=== PATIENT | male | born 1960 | race Caucasian/White ===

== ENCOUNTER 2016-04-01 11:56 | Inpatient (IN) | payer BC, OTHER ==
--- NOTE | 2016-04-01 15:35 | HP ---
CIWA Score - CIWA Score Nausea/Vomitin (DIARRHEA) Muscle Tremors: 4-Moderate,w/Arms Extend Anxiety: 4-Mod. Anxious/Guarded Agitation: 4-Moderately Restless Paroxysmal Sweats: 1-Minimal Palms Moist Orientation: 0-Oriented Tacttile Disturbances: 3-Moderate Itch/Numb/Burn Auditory Disturbances: 0-None Visual Disturbances: 0-None Headache: 1-Very Mild CIWA-Ar Total Score: 22 Admission ROS BHS - HPI Chief Complaint: DETOX TX FOR ALCOHOL AND COCAINE DEPENDENCE Allergies/Adverse Reactions: Allergies Allergy/AdvReac Type Severity Reaction Status Date / Time shellfish derived Allergy Verified 04/01/16 14:44 History of Present Illness: 55 Y/O H/M WITH A HX OF ALCOHOL AND COCAINE DEPENDENCE SEEKING DETOX TX. Exam Limitations: No Limitations - Ebola screening Have you traveled outside of the country in the last 21 days: No Have you had contact with anyone from an Ebola affected area: No Have you been sick,other than usual withdrawal symptoms: No Do you have a fever: No - Review of Systems Constitutional: Chills, Night Sweats, Changes in sleep EENT: reports: Blurred Vision, Dental Problems (LOOSE/CRACKED TOOTH) Respiratory: reports: No Symptoms reported Cardiac: reports: No Symptoms Reported GI: reports: Constipated, Diarrhea, Nausea, Poor Fluid Intake, Vomiting : reports: Frequency Musculoskeletal: reports: Joint Pain (LEFT HAND), Muscle Pain Integumentary: reports: No Symptoms Reported Neuro: reports: Numbness, Tingling, Tremors, Unsteady Gait Endocrine: reports: No Symptoms Reported Hematology: reports: No Symptoms Reported Psychiatric: reports: Orientated x3, Agitated, Anxious Other Systems: Reviewed and Negative Patient History - Patient Medical History Hx Anemia: No Hx Asthma: No Hx Chronic Obstructive Pulmonary Disease (COPD): No Hx Cancer: No Hx Cardiac Disorders: Yes ("REGURGITATING HEART VESSEL" 3 YRS AGO) Hx Congestive Heart Failure: No Hx Hypertension: No Hx Hypercholesterolemia: No Hx Pacemaker: No HX Cerebrovascular Accident: No Hx Seizures: No Hx Dementia: No Hx Diabetes: No Hx Gastrointestinal Disorders: No Hx Liver Disease: No Hx Genitourinary Disorders: No Hx Sexually Transmitted Disorders: Yes (Tx for chlamydia.) Hx Renal Disease (ESRD): No Hx Thyroid Disease: No Hx Human Immunodeficiency Virus (HIV): No Hx Hepatitis C: No Hx Depression: Yes (ON MEDS) Hx Suicide Attempt: Yes (Tried to overdose in 1984;DENIES CURRENT IDEATION) Hx Bipolar Disorder: Yes Hx Schizophrenia: No - Patient Surgical History Past Surgical History: Yes Hx Appendectomy: Yes (AT 13 YRS OLD) Anesthesia Reaction: No - PPD History Previous Implant?: Yes Documented Results: Negative w/o proof Implanted On Prior [facility] Admission?: Yes Date: 11/07/13 PPD to be Administered?: Yes - Reproductive History Patient is a Female of Child Bearing Age (11 -55 yrs old): No (MALE) - Smoking Cessation Smoking history: Current every day smoker Aproximately how many cigarettes per day: 10 Hx Chewing Tobacco Use: No Initiated information on smoking cessation: Yes 'Breaking Loose' booklet given: 04/01/16 - Substance & Tx. History Hx Alcohol Use: Yes (RUM) Hx Substance Use: Yes (COCAINE) Substance Use Type: Alcohol, Cocaine Hx Substance Use Treatment: Yes ([facility]) - Substances Abused Alcohol Route: Oral Frequency: Daily Amount used: 1 pint of rum/3 beers Age of first use: 16 Date of Last Use: 03/31/16 Cocaine Route: Smoking Frequency: Daily Amount used: $30-40 Age of first use: 17 Date of Last Use: 03/31/16 Family Disease History - Family Disease History Family Disease History: Other: Father (ALCOHOL) Admission Physical Exam S - Vital Signs Vital Signs: Vital Signs - 24 hr 04/01/16 12:27 Pulse Rate 80 Respiratory 20 Rate Blood Pressure 114/80 - Physical General Appearance: Yes: Moderate Distress, Anxious HEENTM: Yes: EOMI, Normocephalic, SALAS, Pharynx Normal Respiratory: Yes: Chest Non-Tender, Lungs Clear, Normal Breath Sounds, No Respiratory Distress Neck: Yes: Supple, Trachea in good position Breast: Yes: Breast Exam Deferred Cardiology: Yes: Regular Rhythm, Regular Rate, S1, S2 Abdominal: Yes: Normal Bowel Sounds, Non Tender, Soft Genitourinary: Yes: Other (N/C) Back: Yes: Within Normal Limits Musculoskeletal: Yes: full range of Motion, Gait Steady Extremities: Yes: Normal Range of Motion, Non-Tender Neurological: Yes: assemblyman or woman II-XII NML intact, Fully Oriented, Alert, Motor Strength 5/5 Integumentary: Yes: Dry, Warm Lymphatic: Yes: Within Normal Limits - Diagnostic (1) Alcohol dependence with uncomplicated withdrawal Current Visit: Yes Status: Acute (2) Cocaine dependence, uncomplicated Current Visit: Yes Status: Acute Cleared for Admission [facility] - Detox or Rehab [facility] Level of Care: Medically Managed Detox Regimen/Protocol: Librium [facility] Breath Alcohol Content Breath Alcohol Content: 0 Urine Drug Screen - Results Drug Screen Negative: No Urine Drug Screen Results: BREONNA-Cocaine, MDMA-Ecstasy
[2016-04-01] MEDS ORDERED: P-EPHED 60MG/TRIPROLIDI 2.5MG TABLET PO PRN (15:48)
[2016-04-01] MEDS ORDERED: chlordiazePOXIDE HCL 25 MG CAPSULE PO PRN (15:48)
[2016-04-01] MEDS ORDERED: MENTHOL/PHENOL 1 EACH UD MM PRN (15:48)
[2016-04-01] MEDS ORDERED: guaiFENesin/D-METHORPHAN HB 10 ML UNIT-DOSE CUPS PO PRN (15:48)
[2016-04-01] MEDS ORDERED: IBUPROFEN 400 MG TABLET (FP) PO PRN (15:48)
[2016-04-01] MEDS ORDERED: diphenhydrAMINE HCL 50 MG CAPSULE PO PRN (15:48)
[2016-04-01] MEDS ORDERED: MAG HYDROX/AL HYDROX/SIMETH 30 ML UNIT-DOSE CUP PO PRN (15:48)
[2016-04-01] MEDS ORDERED: MAGNESIUM CITRATE 300 ML BOTTLE PO PRN (15:48)
[2016-04-01] MEDS ORDERED: LOPERAMIDE HCL 2 MG CAPSULE PO PRN (15:48)
[2016-04-01] MEDS ORDERED: MAGNESIUM HYDROX 2400MG/30ML ORAL SUSPENSION 30 ML CUP PO PRN (15:48)
[2016-04-01] MEDS ORDERED: hydrOXYzine PAMOATE 25 MG CAPSULE (FP) PO PRN (15:48)
[2016-04-01] MEDS: chlordiazePOXIDE HCL 25 MG CAPSULE PO SCH ×2 (17:48→22:27)
[2016-04-01] MEDS: NICOTINE 14 MG/24 HOURS TOPICAL PATCH TD SCH (17:52)
[2016-04-01] MEDS: NICOTINE POLACRILEX 2 MG GUM BC PRN ×2 (17:52→23:10)
[2016-04-01 21:22] LABS: HIV 1 & 2 AB NEGATIVE; HIV 1 AGp24 NEGATIVE
[2016-04-01] MEDS: THIAMINE HCL 100 MG TABLET (FP) PO SCH (22:27)
[2016-04-01 23:42] LABS: URINE APPEARANCE SLCLOUDY; URINE BILIRUBIN NEGATIVE (NEGATIVE); URINE COLOR YELLOW; URINE GLUCOSE (UA) NEGATIVE (NEGATIVE); URINE KETONE NEGATIVE (NEGATIVE); URINE LEUK ESTERASE NEGATIVE (NEGATIVE); URINE NITRITE NEGATIVE (NEGATIVE); URINE PROTEIN NEGATIVE (NEGATIVE); URINE UROBILINOGEN NEGATIVE E.U./dl (0.2-1.0)
[2016-04-02 00:05] LABS: URINE BLOOD 2+ (NEGATIVE)
[2016-04-02 00:09] LABS: CALCIUM OXALATE CRYSTALS RARE /hpf (NONE SEEN); URINE MUCUS RARE; URINE RBC 55 /hpf (0-3); URINE WBC 5 /hpf (3-5)
[2016-04-02] MEDS: chlordiazePOXIDE HCL 25 MG CAPSULE PO SCH ×4 (05:24→23:14)
[2016-04-02 10:48] LABS: MCH 31.8 pg (25.7-33.7); MCHC 34.1 g/dl (32.0-35.9); MEAN CELL VOLUME 93.2 fl (80-96); MEAN PLT VOLUME 8.1 fl (7.5-11.1); PLATELET COUNT 241 K/MM3 (134-434); RDW 14.9 % (11.9-15.9); WHITE BLOOD COUNT 6.9 K/mm3 (4.0-10.0)
[2016-04-02] MEDS: PRENATAL VITAMINS W/ FOLIC ACID TABLET (FP) PO SCH (10:50)
[2016-04-02] MEDS: NICOTINE 14 MG/24 HOURS TOPICAL PATCH TD SCH (10:51)
[2016-04-02 10:52] LABS: ALBUMIN 3.4 g/dl (3.4-5.0); ALK PHOS 107 U/L (45-117); ANION GAP 8 (8-16); BILIRUBIN,TOTAL 0.5 mg/dL (0.2-1.0); CALCIUM 9.2 mg/dL (8.5-10.1); CO2 26 mmol/L (21-32); CREATININE 1.1 mg/dL (0.7-1.3); GLUCOSE,RANDOM 153 mg/dL (74-106); SGOT/AST 15 U/L (15-37); SGPT/ALT 23 U/L (12-78); TOT PROT 5.8 g/dl (6.4-8.2)
--- NOTE | 2016-04-02 11:18 | CONSULT ---
[facility] Psychiatric Consult - Data Date of interview: 04/02/16 Admission source: [facility] Identifying data: This is 55 uyears old male with history of Bipolar disorder, history of psychiatric hospitalizations, intoxicated with: Alcohol, Cocaine and Nicotine Substance Abuse History: - Smoking Cessation. Smoking history: Current every day smoker. Aproximately how many cigarettes per day: 10. Hx Chewing Tobacco Use: No. Initiated information on smoking cessation: Yes. 'Breaking Loose' booklet given: 04/01/16. - Substance & Tx. History. Hx Alcohol Use: Yes (RUM) . Hx Substance Use: Yes (COCAINE). Substance Use Type: Alcohol, Cocaine. Hx Substance Use Treatment: Yes ([facility]). - Substances Abused. Alcohol. Route: Oral. Frequency: Daily. Amount used: 1 pint of rum/3 beers. Age of first use: 16. Date of Last Use: 03/31/16. Cocaine. Route: Smoking. Frequency: Daily. Amount used: $30-40. Age of first use: 17. Date of Last Use : 03/31/16 Medical History: Denies significant medical problem Psychiatric History: Patient reports to carry Bipolar disorder with most recent psychiatric hospitalization on 2016 at [facility] for [facility], as per computer there is a history of Suicidal attempts by OD, patient denioes suicidal history, reports taking prior to admission: Depakote 500mg po qhs. Risperdal 3mg po qhs Physical/Sexual Abuse/Trauma History: Denies, unclear Additional Comment: Depakote 500mg po qhs. Risperdal 3mg po qhs Mental Status Exam - Mental Status Exam Alert and Oriented to: Person Cognitive Function: Fair Patient Appearance: Unkempt Mood: Sad Affect: Flat Patient Behavior: Sedated Speech Pattern: Delayed Voice Loudness: Moderately Soft/Quiet Thought Process: Circumstantial Thought Disorder: Being Controlled Hallucinations: Denies Suicidal Ideation: Denies Homicidal Ideation: Denies Insight/Judgement: Fair Sleep: Difficulty falling asleep Appetite: Weight loss Muscle strength/Tone: Moderate Hypotonicity Gait/Station: Shuffling Additional Comments: Depakote 500mg po qhs. Risperdal 3mg po qhs Psychiatric Findings - Problem List ([place] 1, 2,3) (1) Alcohol dependence with uncomplicated withdrawal Current Visit: Yes Status: Acute (2) Cocaine dependence, uncomplicated Current Visit: Yes Status: Acute (3) Bipolar disorder Current Visit: Yes Status: Acute (4) Non compliance w medication regimen Current Visit: Yes Status: Acute (5) Nicotine dependence Current Visit: Yes Status: Acute - Initial Treatment Plan Initial Treatment Plan: Depakote 500mg po qhs. Risperdal 3mg po qhs. Depakote blood level
--- NOTE | 2016-04-02 11:48 | PN ---
S CIWA - CIWA Score Nausea/Vomitin Muscle Tremors: 2 Anxiety: 3 Agitation: 2 Paroxysmal Sweats: 3 Orientation: 1-Uncertain about Date Tacttile Disturbances: 1-Very Mild Itch/Numbness Auditory Disturbances: 0-None Visual Disturbances: 0-None Headache: 0-None Present CIWA-Ar Total Score: 14 BHS Progress Note (SOAP) Subjective: interrupted sleep,sweats, some anxiety Objective: 04/02/16 11:47 Vital Signs Temperature 98.2 F 04/02/16 10:02 Pulse Rate 91 H 04/02/16 10:02 Respiratory Rate 18 04/02/16 10:02 Blood Pressure 109/74 04/02/16 10:02 O2 Sat by Pulse Oximetry (%) Laboratory Tests 04/01/16 04/01/16 04/02/16 15:50 21:23 05:30 WBC 6.9 RBC 4.78 Hgb 15.2 Hct 44.6 MCV 93.2 MCHC 34.1 RDW 14.9 Plt Count 241 MPV 8.1 Sodium Potassium Chloride Carbon Dioxide Anion Gap BUN Creatinine Creat Clearance w eGFR Random Glucose Calcium Total Bilirubin AST ALT Alkaline Phosphatase Total Protein Albumin Urine Color Yellow Urine Appearance Slcloudy Urine pH 5.0 D Ur Specific [place] 1.024 Urine Protein Negative Urine Glucose (UA) Negative Urine Ketones Negative Urine Blood 2+ H Urine Nitrite Negative Urine Bilirubin Negative Urine Urobilinogen Negative Ur Leukocyte Esterase Negative Urine RBC 55 Urine WBC 5 Ur Epithelial Cells Rare Calcium Oxalate Crystal Rare Urine Mucus Rare HIV 1&2 Antibody Screen Negative HIV P24 Antigen Negative 04/02/16 05:30 WBC RBC Hgb Hct MCV MCHC RDW Plt Count MPV Sodium 142 Potassium 3.5 Chloride 108 H Carbon Dioxide 26 Anion Gap 8 BUN 11 Creatinine 1.1 Creat Clearance w eGFR > 60 Random Glucose 153 H D Calcium 9.2 Total Bilirubin 0.5 D AST 15 ALT 23 Alkaline Phosphatase 107 Total Protein 5.8 L Albumin 3.4 Urine Color Urine Appearance Urine pH Ur Specific [place] Urine Protein Urine Glucose (UA) Urine Ketones Urine Blood Urine Nitrite Urine Bilirubin Urine Urobilinogen Ur Leukocyte Esterase Urine RBC Urine WBC Ur Epithelial Cells Calcium Oxalate Crystal Urine Mucus HIV 1&2 Antibody Screen HIV P24 Antigen pt aox3 in nad ambulating Assessment: 04/02/16 11:48 withdrawlsx's Plan: cont. detox increase fluids
--- NOTE | 2016-04-02 11:49 | EKG ---
Test Reason : Blood Pressure : / mmHG Vent. Rate : 074 BPM Atrial Rate : 074 BPM P-R Int : 168 ms QRS Dur : 088 ms QT Int : 418 ms P-R-T Axes : 071 070 062 degrees QTc Int : 463 ms NORMAL SINUS RHYTHM MINIMAL VOLTAGE CRITERIA FOR LVH, MAY BE NORMAL VARIANT BORDERLINE ECG NO PREVIOUS ECGS AVAILABLE Confirmed by HONG العلي MD ([id number]) on 04/02/2016 11:49:34 AM Referred By: Confirmed By:HONG العلي MD
[2016-04-02] MEDS: risperiDONE 3 MG TABLET PO SCH (22:33)
[2016-04-02] MEDS: DIVALPROEX SODIUM 500 MG TABLET E.C. PO SCH (22:33)
[2016-04-02] MEDS: THIAMINE HCL 100 MG TABLET (FP) PO SCH (22:34)
[2016-04-03] MEDS: ACETAMINOPHEN 325 MG TABLET (FP) PO PRN ×2 (02:00→23:12)
[2016-04-03] MEDS: chlordiazePOXIDE HCL 25 MG CAPSULE PO SCH ×2 (05:26→10:54)
[2016-04-03] MEDS ORDERED: TRIMETHOBENZAMIDE HCL 200MG/2ML INJ IM PRN (05:31)
--- NOTE | 2016-04-03 10:40 | PN ---
[facility] CIWA - CIWA Score Nausea/Vomitin-No Nausea/No Vomiting Muscle Tremors: 3 Anxiety: 3 Agitation: 3 Paroxysmal Sweats: 3 Orientation: 0-Oriented Tacttile Disturbances: 0-None Auditory Disturbances: 0-None Visual Disturbances: 0-None Headache: 0-None Present CIWA-Ar Total Score: 12 S Progress Note (SOAP) Subjective: left arm sore I got an injection now my arm hurts sweats irritable interrupted sleep Objective: 04/03/16 10:41 Vital Signs Temperature 97.5 F L 04/03/16 10:01 Pulse Rate 89 04/03/16 10:01 Respiratory Rate 20 04/03/16 10:01 Blood Pressure 106/61 04/03/16 10:01 O2 Sat by Pulse Oximetry (%) Laboratory Tests 04/01/16 04/01/16 04/02/16 15:50 21:23 05:30 WBC 6.9 RBC 4.78 Hgb 15.2 Hct 44.6 MCV 93.2 MCHC 34.1 RDW 14.9 Plt Count 241 MPV 8.1 Sodium Potassium Chloride Carbon Dioxide Anion Gap BUN Creatinine Creat Clearance w eGFR Random Glucose Calcium Total Bilirubin AST ALT Alkaline Phosphatase Total Protein Albumin Urine Color Yellow Urine Appearance Slcloudy Urine pH 5.0 D Ur Specific [place] 1.024 Urine Protein Negative Urine Glucose (UA) Negative Urine Ketones Negative Urine Blood 2+ H Urine Nitrite Negative Urine Bilirubin Negative Urine Urobilinogen Negative Ur Leukocyte Esterase Negative Urine RBC 55 Urine WBC 5 Ur Epithelial Cells Rare Calcium Oxalate Crystal Rare Urine Mucus Rare Valproic Acid RPR Titer HIV 1&2 Antibody Screen Negative HIV P24 Antigen Negative 04/02/16 04/02/16 04/03/16 05:30 05:30 05:45 WBC RBC Hgb Hct MCV MCHC RDW Plt Count MPV Sodium 142 Potassium 3.5 Chloride 108 H Carbon Dioxide 26 Anion Gap 8 BUN 11 Creatinine 1.1 Creat Clearance w eGFR > 60 Random Glucose 153 H D Calcium 9.2 Total Bilirubin 0.5 D AST 15 ALT 23 Alkaline Phosphatase 107 Total Protein 5.8 L Albumin 3.4 Urine Color Urine Appearance Urine pH Ur Specific [place] Urine Protein Urine Glucose (UA) Urine Ketones Urine Blood Urine Nitrite Urine Bilirubin Urine Urobilinogen Ur Leukocyte Esterase Urine RBC Urine WBC Ur Epithelial Cells Calcium Oxalate Crystal Urine Mucus Valproic Acid < 3.000 L RPR Titer Nonreactive HIV 1&2 Antibody Screen HIV P24 Antigen awake/alert lying in bed no acute distress Assessment: 04/03/16 10:42 withdrawal sx Plan: continue detox increase fluids motrin prn warm compress to arm
[2016-04-03] MEDS ORDERED: IBUPROFEN 600 MG TABLET (FP) PO PRN (10:43)
[2016-04-03] MEDS: PRENATAL VITAMINS W/ FOLIC ACID TABLET (FP) PO SCH (10:52)
[2016-04-03] MEDS: NICOTINE 14 MG/24 HOURS TOPICAL PATCH TD SCH (10:52)
[2016-04-03] MEDS: chlordiazePOXIDE 5 MG CAPSULE PO SCH ×2 (18:16→23:34)
[2016-04-03] MEDS: risperiDONE 3 MG TABLET PO SCH (22:55)
[2016-04-03] MEDS: THIAMINE HCL 100 MG TABLET (FP) PO SCH (22:55)
[2016-04-03] MEDS: DIVALPROEX SODIUM 500 MG TABLET E.C. PO SCH (22:55)
--- NOTE | 2016-04-03 23:38 | PN ---
S Progress Note Note: received nurse call temp 100.8 recommend tylenal 650 mg x 1 now repeat temp in 2 hours around 130 am continue detox
[2016-04-04] MEDS: chlordiazePOXIDE 5 MG CAPSULE PO SCH ×2 (05:35→10:52)
--- NOTE | 2016-04-04 10:43 | PN ---
BHS Progress Note (SOAP) Subjective: tired Objective: 04/04/16 10:43 Vital Signs Temperature 97.6 F 04/04/16 10:00 Pulse Rate 96 H 04/04/16 10:00 Respiratory Rate 20 04/04/16 10:00 Blood Pressure 108/77 04/04/16 10:00 O2 Sat by Pulse Oximetry (%) awake/alert ambulating no acute distress Assessment: 04/04/16 10:43 withdrawal sx Plan: continue detox d/c in am
[2016-04-04] MEDS: PRENATAL VITAMINS W/ FOLIC ACID TABLET (FP) PO SCH (10:52)
[2016-04-04] MEDS: NICOTINE 14 MG/24 HOURS TOPICAL PATCH TD SCH (10:53)
[2016-04-04] MEDS: chlordiazePOXIDE HCL 10 MG CAPSULE PO SCH ×2 (18:34→22:51)
[2016-04-04] MEDS: ACETAMINOPHEN 325 MG TABLET (FP) PO PRN (18:34)
[2016-04-04] MEDS: DIVALPROEX SODIUM 500 MG TABLET E.C. PO SCH (22:50)
[2016-04-04] MEDS: THIAMINE HCL 100 MG TABLET (FP) PO SCH (22:51)
[2016-04-04] MEDS: risperiDONE 3 MG TABLET PO SCH (22:51)
[2016-04-05] MEDS: chlordiazePOXIDE HCL 10 MG CAPSULE PO SCH ×2 (05:10→13:29)
--- NOTE | 2016-04-05 09:24 | PN ---
S Progress Note (SOAP) Subjective: no complaints Objective: 04/05/16 09:23 Laboratory Tests 04/01/16 04/01/16 04/02/16 15:50 21:23 05:30 WBC 6.9 RBC 4.78 Hgb 15.2 Hct 44.6 MCV 93.2 MCHC 34.1 RDW 14.9 Plt Count 241 MPV 8.1 Sodium Potassium Chloride Carbon Dioxide Anion Gap BUN Creatinine Creat Clearance w eGFR Random Glucose Calcium Total Bilirubin AST ALT Alkaline Phosphatase Total Protein Albumin Urine Color Yellow Urine Appearance Slcloudy Urine pH 5.0 D Ur Specific [place] 1.024 Urine Protein Negative Urine Glucose (UA) Negative Urine Ketones Negative Urine Blood 2+ H Urine Nitrite Negative Urine Bilirubin Negative Urine Urobilinogen Negative Ur Leukocyte Esterase Negative Urine RBC 55 Urine WBC 5 Ur Epithelial Cells Rare Calcium Oxalate Crystal Rare Urine Mucus Rare Valproic Acid RPR Titer HIV 1&2 Antibody Screen Negative HIV P24 Antigen Negative 04/02/16 04/02/16 04/03/16 05:30 05:30 05:45 WBC RBC Hgb Hct MCV MCHC RDW Plt Count MPV Sodium 142 Potassium 3.5 Chloride 108 H Carbon Dioxide 26 Anion Gap 8 BUN 11 Creatinine 1.1 Creat Clearance w eGFR > 60 Random Glucose 153 H D Calcium 9.2 Total Bilirubin 0.5 D AST 15 ALT 23 Alkaline Phosphatase 107 Total Protein 5.8 L Albumin 3.4 Urine Color Urine Appearance Urine pH Ur Specific [place] Urine Protein Urine Glucose (UA) Urine Ketones Urine Blood Urine Nitrite Urine Bilirubin Urine Urobilinogen Ur Leukocyte Esterase Urine RBC Urine WBC Ur Epithelial Cells Calcium Oxalate Crystal Urine Mucus Valproic Acid < 3.000 L RPR Titer Nonreactive HIV 1&2 Antibody Screen HIV P24 Antigen Assessment: 04/05/16 09:23 elevated glucose, hematuria, compoelted detox, medically stable Plan: d/c today, going to rehab, f/u PCP for abnormal blood and urine results
--- NOTE | 2016-04-05 09:26 | DS ---
[facility] Detox Discharge Summary Admission Date: 04/01/16 Discharge Date: 04/05/16 - History Present History: Alcohol Dependence, Cocaine Dependence Pertinent Past History: nicotine dependence, bipolar do - Physical Exam Results Vital Signs: Vital Signs Temperature 97.9 F 04/05/16 06:22 Pulse Rate 65 04/05/16 06:22 Respiratory Rate 16 04/05/16 06:22 Blood Pressure 107/77 04/05/16 06:22 O2 Sat by Pulse Oximetry (%) Pertinent Admission Physical Exam Findings: withdrawal sx - Treatment Hospital Course: Detox Protocol Followed, Detoxed Safely, Responded well, Discharged Condition Good, Rehab Referral Accepted - Medication Discharge Medications: Ambulatory Orders Divalproex [Depakote -] 500 mg PO HS #30 tablet.ec 04/02/16 Risperidone [Risperdal -] 3 mg PO HS #30 tablet 04/02/16 - Diagnosis (1) Alcohol dependence with uncomplicated withdrawal Current Visit: Yes Status: Acute (2) Bipolar disorder Current Visit: Yes Status: Acute (3) Cocaine dependence, uncomplicated Current Visit: Yes Status: Acute (4) Nicotine dependence Current Visit: Yes Status: Acute - AMA Did Patient Leave Against Medical Advice: No
[2016-04-05] MEDS: PRENATAL VITAMINS W/ FOLIC ACID TABLET (FP) PO SCH (10:45)
[2016-04-05] MEDS: NICOTINE POLACRILEX 2 MG GUM BC PRN (10:46)
[2016-04-05] MEDS: NICOTINE 14 MG/24 HOURS TOPICAL PATCH TD SCH (10:46)
--- NOTE | 2016-04-05 13:18 | HP ---
Psychiatrist Admission - Data Date of interview: 04/05/16 Admission source: 6N Identifying data: This is the first [facility] admission for this 55 years old single male, father of an 8 years old son, unemployed with no source of income, homeless Medical History: Significant for history of treatment for Syphilis and Chlamydia and S/P Appendectomy Psychiatric History: Reports that his first psychiatric contact was between the age of [age] when he was admitted to [facility] due to suicidal attempt by overdose. He was diagnosed then with Bipolar Disorder and treated with Depakote, Risperdal and Seroquel. Reports to have had multiple subsequent admissions with most recent in Dec 2015 to [facility] for depression and suicidal ideations. He was discharged on Depakote 500 mg po HS, Risperdal 3 mg po HS and Seroquel 800 mg po HS. Claims that he has not been taking these medications. He saw Dr Quiñones in detox and was restarted on Depakote 500 mg po HS and Risperdal 3 mg po HS. At present, he wants to resume taking Seroquel at a low dose in addition to continue taking Depakote and Risperdal as prescribed. Physical/Sexual Abuse/Trauma History: Denies history of physical, sexua abuse as well as DV relationship Additional Comment: Reports history of multiple arrsts including 5 felony convictions. Denies being on parole/probation at this time Vital Signs: Vital Signs - 24 hr 04/04/16 04/04/16 04/04/16 14:50 17:43 21:52 Temperature 99.9 F H 97.9 F 97.1 F L Pulse Rate 98 H 89 78 Respiratory 16 18 20 Rate Blood Pressure 93/65 105/77 95/72 04/05/16 04/05/16 04/05/16 00:30 03:30 06:22 Temperature 97.9 F Pulse Rate 65 Respiratory 16 18 16 Rate Blood Pressure 107/77 04/05/16 09:59 Temperature 97.7 F Pulse Rate 82 Respiratory 20 Rate Blood Pressure 103/73 Allergies/Adverse Reactions: Allergies Allergy/AdvReac Type Severity Reaction Status Date / Time No Known Drug Allergies Allergy Verified 04/01/16 16:05 shellfish derived Allergy Verified 04/01/16 14:44 Date of last physical exam: 04/01/16 Concur with the findings of this exam: Yes - Substance Abuse/Tx History Hx Alcohol Use: Yes Hx Substance Use: Yes Substance Use Type: Alcohol (Started drinking alcohol at age 16, consumes one pint of rum & 3 cans of beer daily. Last drink on 03/31/16), Cocaine (Started smoking crack cocaine at age 17, consumes $30-40 worth daily. Last smoked on ) Hx Substance Use Treatment: Yes (one previous inpt detox & one inpt rehab @ [facility] ) - Admission Criteria Previous failed treatment: No Poor recovery environment: Yes Comorbidities: Yes Lacks judgement: Yes Mental Status Exam - Mental Status Exam Alert and Oriented to: Time, Place, Person Cognitive Function: Fair Patient Appearance: Well Groomed Mood: Hopeful, Euthymic Affect: Appropriate Patient Behavior: Cooperative (with underlying irritability) Speech Pattern: Clear Voice Loudness: Normal Thought Process: Intact Thought Disorder: Not Present Hallucinations: Denies Suicidal Ideation: Denies Homicidal Ideation: Denies Insight/Judgement: Fair Sleep: Poorly Appetite: Good Muscle strength/Tone: Normal Gait/Station: Normal Psychiatric Findings - Problem List ([place] 1, 2,3) (1) Alcohol dependence with uncomplicated withdrawal Current Visit: Yes Status: Acute (2) Cocaine dependence, uncomplicated Current Visit: Yes Status: Acute (3) Nicotine dependence Current Visit: Yes Status: Acute (4) Bipolar disorder Current Visit: Yes Status: Acute - Initial Treatment Plan Initial Treatment Plan: 1) Continue Depakote 500 mg po HS and Risperdal 3 mg po HS. 2) Start Seroquel 100 mg po HS. 3) Valproic Acid serum level. 4) Monitor progress
[2016-04-05 14:33] VITALS: BMI 23.3
[2016-04-05] MEDS ORDERED: NICOTINE POLACRILEX 2 MG GUM BUC PRN (20:01)
[2016-04-05] MEDS: risperiDONE 3 MG TABLET PO SCH (21:57)
[2016-04-05] MEDS: THIAMINE HCL 100 MG TABLET (FP) PO SCH (21:57)
[2016-04-05] MEDS: DIVALPROEX SODIUM 500 MG TABLET E.C. PO SCH (21:57)
[2016-04-05] MEDS ORDERED: QUEtiapine FUMARATE 100 MG TABLET (FP) PO SCH (22:00)
[2016-04-06 06:43] VITALS: BP 104/75; PULSE 73; TEMP 97.5
--- NOTE | 2016-04-06 07:29 | PN ---
[facility] Progress Note Note: MD'S NOTE: INFORMED AT 7:00AM THAT THE PT. WANTS TO SIGN OUT AMA THE PT. WAS TALKED TO FACE TO FACE AND ATTEMPTED SEVERAL TIMES TO STAY. INSPITE OF IT, HE WANTS TO SIGN OUT AMA. SO, HE SIGNED OUT AND ABOUT TO LEAVE THE FACILITY SOON. RECOMMENDED: TO F/U WITH PMD AND OUT PT. PROGRAMS. PROVIDER: BEATRICE KRUGER MD
== END 2016-04-06 07:15 | disposition left against medical advice (07) | DRG 770 ==
LOC: YASAS 11:56 → Y6N 15:56 → UNDOADMIN 15:56 → UNDODISIN 04-05 12:12 → Y3W 04-05 12:25 → Y6N 04-05 12:25 → UNDODISIN 04-06 07:15
PROVIDERS: ADMIT Internal Medicine Addiction Medicine; ATTEND Psychiatry & Neurology Psychiatry
PROC: HZ2ZZZZ Detoxification Services for Substance Abuse Treatment (ICD-10-PCS; principal; 2016-04-01)
PROC: HZ42ZZZ Group Counseling for Substance Abuse Treatment, Cognitive-Behavioral (ICD-10-PCS; 2016-04-05)
DX: F10.230 Alcohol dependence with withdrawal, uncomplicated (principal); F14.20 Cocaine dependence, uncomplicated; F17.210 Nicotine dependence, cigarettes, uncomplicated; F31.9 Bipolar disorder, unspecified; R31.9 Hematuria, unspecified; R73.9 Hyperglycemia, unspecified; R50.9 Fever, unspecified; Z87.438 Personal history of other diseases of male genital organs; Z91.14 Patient's other noncompliance with medication regimen; Z91.5 Personal history of self-harm
CPT/HCPCS: 36415; 80053; 80164; 81003; 81015; 85027; 86593; 87389; 93005; 93010

== ENCOUNTER 2017-08-04 19:29 | Inpatient (IN) | payer OTHER ==
[2017-08-04 20:13] VITALS: BMI 23.1
--- NOTE | 2017-08-04 20:41 | HP ---
CIWA Score - CIWA Score Nausea/Vomitin-Mild Nausea/No Vomiting Muscle Tremors: 3 Anxiety: 4-Mod. Anxious/Guarded Agitation: 4-Moderately Restless Paroxysmal Sweats: 3 Orientation: 1-Uncertain about Date Tacttile Disturbances: 2-Mild Itch/Numbness/Burn Auditory Disturbances: 0-None Visual Disturbances: 0-None Headache: 0-None Present CIWA-Ar Total Score: 18 Admission ROS [facility]HS - HPI Chief Complaint: REQUESTING DETOX FOR ALCOHOLISM AND WITHDRAWAL SX'S Allergies/Adverse Reactions: Allergies Allergy/AdvReac Type Severity Reaction Status Date / Time No Known Drug Allergies Allergy Verified 04/01/16 16:05 shellfish derived Allergy Verified 04/01/16 14:44 History of Present Illness: 57 Y.O. MALE WITH LONG HX/O ALCOHOLISMA ND COCAINE DEPENDENCE HERE FOR DETOX. 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 HE IS KNOWN TO THIS PROGRAM. LAST HERE /2016 FOR REHAB WHICH HE DID NOT COMPLETE. REPORTS LONGEST CLEAN TIME 15 YEARS. RELAPSING 2 YEARS AGO. PRESENTLY DENIES SI/HI AND A/V HALLUCINATIONS PMHX: LUPUS, HEART MURMUR, NICOTINE DEPENDENCE PSYCH: BIPOLAR., SCHIZOAFFECTIVE AND DEPRESSION Exam Limitations: No Limitations - Ebola screening Have you traveled outside of the country in the last 21 days: No (NN) Have you had contact with anyone from an Ebola affected area: No Have you been sick,other than usual withdrawal symptoms: No Do you have a fever: No - Review of Systems Constitutional: Chills, Loss of Appetite, Night Sweats, Changes in sleep, Unintentional Wgt. Loss EENT: reports: Dental Problems Respiratory: reports: No Symptoms reported Cardiac: reports: No Symptoms Reported GI: reports: Nausea, Poor Appetite, Poor Fluid Intake : reports: No Symptoms Reported Musculoskeletal: reports: No Symptoms Reported Integumentary: reports: No Symptoms Reported Neuro: reports: No Symptoms reported Endocrine: reports: No Symptoms Reported Hematology: reports: No Symptoms Reported Psychiatric: reports: Depressed Other Systems: Reviewed and Negative Patient History - Patient Medical History Hx Anemia: No Hx Asthma: No Hx Chronic Obstructive Pulmonary Disease (COPD): No Hx Cancer: No Hx Cardiac Disorders: Yes ("REGURGITATING HEART VESSEL" 3 YRS AGO) Hx Congestive Heart Failure: No Hx Hypertension: No Hx Hypercholesterolemia: No Hx Pacemaker: No HX Cerebrovascular Accident: No Hx Seizures: No Hx Dementia: No Hx Diabetes: No Hx Gastrointestinal Disorders: No Hx Liver Disease: No Hx Genitourinary Disorders: No Hx Sexually Transmitted Disorders: Yes (Tx for chlamydia.) Hx Renal Disease (ESRD): No Hx Thyroid Disease: No Hx Human Immunodeficiency Virus (HIV): No Hx Hepatitis C: No Hx Depression: Yes (ON MEDS) Hx Suicide Attempt: Yes (Tried to overdose in 1984;DENIES CURRENT IDEATION) Hx Bipolar Disorder: Yes Hx Schizophrenia: No Other Medical History: SHCIZOAFFECTIVE - Patient Surgical History Past Surgical History: Yes Hx Appendectomy: Yes (AT 13 YRS OLD) Anesthesia Reaction: No - PPD History Previous Implant?: Yes Documented Results: Negative w/proof Implanted On Prior [facility] Admission?: Yes Date: 04/03/16 Results: 0MM PPD to be Administered?: Yes - Smoking Cessation Smoking history: Current every day smoker Aproximately how many cigarettes per day: 10 Cigars Per Day: 0 Hx Chewing Tobacco Use: No Initiated information on smoking cessation: Yes 'Breaking Loose' booklet given: 08/04/17 - Substance & Tx. History Hx Alcohol Use: Yes Hx Substance Use: Yes Substance Use Type: Alcohol, Cocaine Hx Substance Use Treatment: Yes ([facility]) - Substances Abused VODKA/BEER Route: Oral Frequency: Daily Amount used: 1/2 PINT VODKA/ 2/ 16 OZ BEER Age of first use: 17 Date of Last Use: 08/04/17 COCAINE Route: Smoking Frequency: Daily Amount used: $50 Age of first use: 27 Date of Last Use: 08/03/17 Family Disease History - Family Disease History Family Disease History: Other: Father (ALCOHOL) Admission Physical Exam [facility] - Vital Signs Vital Signs: Vital Signs - 24 hr 08/04/17 20:11 Temperature 98.7 F Pulse Rate 73 Respiratory 18 Rate Blood Pressure 131/78 - Physical General Appearance: Yes: Appropriately Dressed, Alcohol on Breath, Tremorous ( FELT), Anxious HEENTM: Yes: EOMI, Normocephalic, Normal Voice, SALAS, Pharynx Normal, Nasal Congestion, Other (MISSING TEETH) Respiratory: Yes: Chest Non-Tender, Lungs Clear, Normal Breath Sounds, No Respiratory Distress, No Accessory Muscle Use Neck: Yes: No masses,lesions,Nodules, Supple, Trachea in good position Breast: Yes: Breast Exam Deferred Cardiology: Yes: Regular Rhythm, Regular Rate, S1, S2 Abdominal: Yes: Normal Bowel Sounds, Non Tender, Flat, Soft Genitourinary: Yes: Within Normal Limits Back: Yes: Normal Inspection Musculoskeletal: Yes: full range of Motion, Gait Steady Extremities: Yes: Normal Capillary Refill, Normal Range of Motion, Non-Tender, Tremors Neurological: Yes: Alert, Motor Strength 5/5 Integumentary: Yes: Normal Color, Dry, Warm Lymphatic: Yes: Within Normal Limits - Diagnostic (1) Heart murmur Current Visit: Yes Status: Acute (2) Alcohol dependence with uncomplicated withdrawal Current Visit: Yes Status: Chronic (3) Bipolar disorder Current Visit: Yes Status: Suspected (4) Cocaine dependence, uncomplicated Current Visit: Yes Status: Chronic (5) Nicotine dependence Current Visit: Yes Status: Chronic Qualifiers: Nicotine product type: cigarettes Substance use status: uncomplicated Qualified Code(s): F17.210 - Nicotine dependence, cigarettes, uncomplicated (6) Lupus (systemic lupus erythematosus) Current Visit: Yes Status: Suspected Cleared for Admission [facility] - Detox or Rehab [facility] Level of Care: Medically Managed Detox Regimen/Protocol: Librium Claeared for Rehab Admission: No [facility] Breath Alcohol Content Breath Alcohol Content: 0.024 Urine Drug Screen - Results Drug Screen Negative: No Urine Drug Screen Results: BREONNA-Cocaine
[2017-08-04] MEDS ORDERED: IBUPROFEN 400 MG TABLET (FP) PO PRN (20:50)
[2017-08-04] MEDS ORDERED: LOPERAMIDE HCL 2 MG CAPSULE PO PRN (20:50)
[2017-08-04] MEDS ORDERED: ACETAMINOPHEN 325 MG TABLET (FP) PO PRN (20:50)
[2017-08-04] MEDS ORDERED: MAG HYDROX/AL HYDROX/SIMETH 30 ML UNIT-DOSE CUP PO PRN (20:50)
[2017-08-04] MEDS ORDERED: MENTHOL/PHENOL 1 EACH UD MM PRN (20:50)
[2017-08-04] MEDS ORDERED: P-EPHED 60MG/TRIPROLIDI 2.5MG TABLET PO PRN (20:50)
[2017-08-04] MEDS ORDERED: guaiFENesin/D-METHORPHAN HB 10 ML UNIT-DOSE CUPS PO PRN (20:50)
[2017-08-04] MEDS ORDERED: chlordiazePOXIDE HCL 25 MG CAPSULE PO PRN (20:50)
[2017-08-04] MEDS ORDERED: MAGNESIUM HYDROX 2400MG/30ML ORAL SUSPENSION 30 ML CUP PO PRN (20:50)
[2017-08-04] MEDS ORDERED: hydrOXYzine PAMOATE 50 MG CAPSULE (FP) PO PRN (20:50)
[2017-08-04] MEDS ORDERED: MAGNESIUM CITRATE 300 ML BOTTLE PO PRN (20:50)
[2017-08-04] MEDS ORDERED: MELATONIN 5 MG TABLETS PO PRN (22:00)
[2017-08-04] MEDS: chlordiazePOXIDE HCL 25 MG CAPSULE PO SCH (22:48)
[2017-08-04] MEDS: THIAMINE HCL 100 MG TABLET (FP) PO SCH (22:51)
[2017-08-04] MEDS: NICOTINE POLACRILEX 2 MG GUM BC PRN (23:35)
[2017-08-05] MEDS: chlordiazePOXIDE HCL 25 MG CAPSULE PO SCH ×4 (06:43→23:03)
--- NOTE | 2017-08-05 10:04 | PN ---
BHS CIWA - CIWA Score Nausea/Vomitin Muscle Tremors: 3 Anxiety: 3 Agitation: 2 Paroxysmal Sweats: 1-Minimal Palms Moist Orientation: 0-Oriented Tacttile Disturbances: 1-Very Mild Itch/Numbness Auditory Disturbances: 1-Very Mild Visual Disturbances: 0-None Headache: 2-Mild CIWA-Ar Total Score: 16 BHS Progress Note (SOAP) Subjective: ALERT,IRRITABLE,ANXIOUS,INTERRUPTED SLEEP,TREMOR Objective: 08/05/17 10:01 Vital Signs Temperature 98.1 F 08/05/17 09:08 Pulse Rate 67 08/05/17 09:08 Respiratory Rate 16 08/05/17 09:08 Blood Pressure 119/78 08/05/17 09:08 O2 Sat by Pulse Oximetry (%) EKG NSR,NORMAL ECG,PROLONG QT 430/447 NO CHEST PAIN,NO SOB,NO DIZZINESS LABS PENDING Assessment: 08/05/17 10:03 WITHDRAWAL SYMPTOM Plan: CONTINUE DETOX
--- NOTE | 2017-08-05 10:22 | CONSULT ---
[facility] Psychiatric Consult - Data Date of interview: 08/05/17 Admission source: [facility] Identifying data: This is 57 years old male, sigle, father of one, living with roommate, on PA, with history of Bipolar disorder, history of Psychiatric hospitalizations, with long history of Alcohol, Cocaine and Nicotine dependence , reports withdrawal symptoms and seeking for detox. Substance Abuse History: Smoking Cessation. Smoking history: Current every day smoker. Aproximately how many cigarettes per day: 10. Cigars Per Day: 0. Hx Chewing Tobacco Use: No. Initiated information on smoking cessation: Yes. ' Breaking Loose' booklet given: 08/04/17. - Substance & Tx. History. Hx Alcohol Use: Yes. Hx Substance Use: Yes. Substance Use Type: Alcohol, Cocaine. Hx Substance Use Treatment: Yes ([facility] - Substances Abused. VODKA/BEER. Route: Oral. Frequency: Daily. Amount used: 1/2 PINT VODKA/ 2/ 16 OZ BEER. Age of first use: 17. Date of Last Use: 08/04/17. COCAINE. Route: Smoking. Frequency: Daily. Amount used: $50. Age of first use: 27. Date of Last Use: 08/03/17 Medical History: SLE, Heart murmur history Psychiatric History: Patient reports history of Bipolar Disorder with most recent psychiatric admission on 2 months ago at [facility]. Reports taking prior to admission: Zyprexa 10mg poqd, as per computer patient has been on: Risperdal 3mg po qhs. Depakote 50mg po qhs. Zyprexa 10mg po qd. Patient refusing to continue Risperdal and Depakote. Physical/Sexual Abuse/Trauma History: Denies Additional Comment: Zyprexa 10mg poqd Mental Status Exam - Mental Status Exam Alert and Oriented to: Person Cognitive Function: Fair Patient Appearance: Unkempt Mood: Sad Affect: Flat Patient Behavior: Sedated Speech Pattern: Delayed Voice Loudness: Mildly Soft/Quiet Thought Process: Goal Oriented Thought Disorder: Being Controlled Hallucinations: Denies Suicidal Ideation: Denies Homicidal Ideation: Denies Insight/Judgement: Fair Sleep: Difficulty falling asleep Appetite: Fair Muscle strength/Tone: Mild Hypotonicity Gait/Station: Shuffling Additional Comments: Zyprexa 10mg poqd Psychiatric Findings - Problem List ([place] 1, 2,3) (1) Drug-induced mood disorder Current Visit: Yes Status: Acute (2) Alcohol dependence with uncomplicated withdrawal Current Visit: Yes Status: Chronic (3) Cocaine dependence, uncomplicated Current Visit: Yes Status: Chronic (4) Nicotine dependence Current Visit: Yes Status: Chronic Qualifiers: Nicotine product type: cigarettes Substance use status: uncomplicated Qualified Code(s): F17.210 - Nicotine dependence, cigarettes, uncomplicated (5) Bipolar disorder Current Visit: Yes Status: Suspected - Initial Treatment Plan Initial Treatment Plan: Zyprexa 10mg poqd
[2017-08-05 10:23] LABS: HEMATOCRIT 43.8 % (35.4-49); HEMOGLOBIN 14.6 GM/dL (11.7-16.9); MCH 32.2 pg (25.7-33.7); MCHC 33.4 g/dl (32.0-35.9); MEAN CELL VOLUME 96.3 fl (80-96); MEAN PLT VOLUME 8.1 fl (7.5-11.1); PLATELET COUNT 257 K/MM3 (134-434); RBC 4.55 M/mm3 (4.00-5.60); RDW 14.3 % (11.9-15.9); WHITE BLOOD COUNT 6.2 K/mm3 (4.0-10.0)
[2017-08-05 11:09] LABS: CHLORIDE 111 mmol/L (98-107); POTASSIUM 4.2 mmol/L (3.5-5.1); SODIUM 145 mmol/L (136-145)
[2017-08-05 11:19] LABS: ALK PHOS 82 U/L (45-117); ANION GAP 7 (8-16); BILIRUBIN,TOTAL 0.5 mg/dL (0.2-1.0); BLOOD UREA NITROGEN 14 mg/dL (7-18); CALCIUM 8.2 mg/dL (8.5-10.1); CO2 27 mmol/L (21-32); CREATININE 1.2 mg/dL (0.7-1.3); GLUCOSE,RANDOM 86 mg/dL (74-106); SGOT/AST 12 U/L (15-37); SGPT/ALT 20 U/L (12-78); TOT PROT 5.4 g/dl (6.4-8.2)
[2017-08-05] MEDS: PRENATAL VITAMINS W/ FOLIC ACID TABLET (FP) PO SCH (11:22)
[2017-08-05] MEDS: NICOTINE 14 MG/24 HOURS TOPICAL PATCH TD SCH (11:22)
[2017-08-05] MEDS: OLANZapine 10 MG TABLET PO SCH (11:22)
[2017-08-05] MEDS: NICOTINE POLACRILEX 2 MG GUM BC PRN (11:27)
--- NOTE | 2017-08-05 14:29 | EKG ---
Test Reason : Blood Pressure : / mmHG Vent. Rate : 065 BPM Atrial Rate : 065 BPM P-R Int : 174 ms QRS Dur : 092 ms QT Int : 430 ms P-R-T Axes : 083 072 066 degrees QTc Int : 447 ms NORMAL SINUS RHYTHM NORMAL ECG WHEN COMPARED WITH ECG OF 01-APR-2016 17:46, NO SIGNIFICANT CHANGE WAS FOUND Confirmed by HONG العلي MD ([id number]) on 08/05/2017 2:29:23 PM Referred By: Confirmed By:HONG العلي MD
[2017-08-05 20:42] LABS: URINE APPEARANCE CLEAR; URINE BILIRUBIN NEGATIVE (<2.0 mg/dL); URINE COLOR STRAW; URINE GLUCOSE (UA) NEGATIVE (NEGATIVE); URINE KETONE NEGATIVE (NEGATIVE); URINE LEUK ESTERASE NEGATIVE (NEGATIVE); URINE NITRITE NEGATIVE (NEGATIVE); URINE PROTEIN NEGATIVE (NEGATIVE); URINE UROBILINOGEN NEGATIVE mg/dL (0.2-1.0)
[2017-08-05] MEDS: THIAMINE HCL 100 MG TABLET (FP) PO SCH (23:03)
[2017-08-06] MEDS: chlordiazePOXIDE HCL 25 MG CAPSULE PO SCH ×3 (06:10→17:55)
--- NOTE | 2017-08-06 09:46 | PN ---
S CIWA - CIWA Score Nausea/Vomitin Muscle Tremors: 3 Anxiety: 2 Agitation: 2 Paroxysmal Sweats: 1-Minimal Palms Moist Orientation: 0-Oriented Tacttile Disturbances: 1-Very Mild Itch/Numbness Auditory Disturbances: 1-Very Mild Visual Disturbances: 0-None Headache: 2-Mild CIWA-Ar Total Score: 15 BHS Progress Note (SOAP) Subjective: ALERT,IRRITABLE,ANXIOUS,INTERRUPTED SLEEP,TREMOR Objective: 08/06/17 09:44 Vital Signs Temperature 95.0 F L 08/06/17 09:11 Pulse Rate 77 08/06/17 09:11 Respiratory Rate 18 08/06/17 09:11 Blood Pressure 114/64 08/06/17 09:11 O2 Sat by Pulse Oximetry (%) 08/06/17 09:44 Laboratory Last Values WBC 6.2 K/mm3 (4.0-10.0) 08/05/17 07:00 RBC 4.55 M/mm3 (4.00-5.60) 08/05/17 07:00 Hgb 14.6 GM/dL (11.7-16.9) 08/05/17 07:00 Hct 43.8 % (35.4-49) 08/05/17 07:00 MCV 96.3 fl (80-96) H 08/05/17 07:00 MCH 32.2 pg (25.7-33.7) 08/05/17 07:00 MCHC 33.4 g/dl (32.0-35.9) 08/05/17 07:00 RDW 14.3 % (11.9-15.9) 08/05/17 07:00 Plt Count 257 K/MM3 (134-434) 08/05/17 07:00 MPV 8.1 fl (7.5-11.1) 08/05/17 07:00 Sodium 145 mmol/L (136-145) 08/05/17 07:00 Potassium 4.2 mmol/L (3.5-5.1) 08/05/17 07:00 Chloride 111 mmol/L (98-107) H 08/05/17 07:00 Carbon Dioxide 27 mmol/L (21-32) 08/05/17 07:00 Anion Gap 7 (8-16) L 08/05/17 07:00 BUN 14 mg/dL (7-18) D 08/05/17 07:00 Creatinine 1.2 mg/dL (0.7-1.3) 08/05/17 07:00 Creat Clearance w eGFR > 60 (>60) 08/05/17 07:00 Random Glucose 86 mg/dL (74-106) D 08/05/17 07:00 Calcium 8.2 mg/dL (8.5-10.1) L 08/05/17 07:00 Total Bilirubin 0.5 mg/dL (0.2-1.0) 08/05/17 07:00 AST 12 U/L (15-37) L 08/05/17 07:00 ALT 20 U/L (12-78) 08/05/17 07:00 Alkaline Phosphatase 82 U/L (45-117) D 08/05/17 07:00 Total Protein 5.4 g/dl (6.4-8.2) L 08/05/17 07:00 Albumin 3.0 g/dl (3.4-5.0) L 08/05/17 07:00 Urine Color Straw 08/04/17 16:00 Urine Appearance Clear 08/04/17 16:00 Urine pH 6.0 (5.0-8.0) 08/04/17 16:00 Ur Specific [place] 1.008 (1.001-1.035) 08/04/17 16:00 Urine Protein Negative (NEGATIVE) 08/04/17 16:00 Urine Glucose (UA) Negative (NEGATIVE) 08/04/17 16:00 Urine Ketones Negative (NEGATIVE) 08/04/17 16:00 Urine Blood Negative (NEGATIVE) 08/04/17 16:00 Urine Nitrite Negative (NEGATIVE) 08/04/17 16:00 Urine Bilirubin Negative (<2.0 mg/dL) 08/04/17 16:00 Urine Urobilinogen Negative mg/dL (0.2-1.0) 08/04/17 16:00 Ur Leukocyte Esterase Negative (NEGATIVE) 08/04/17 16:00 RPR Titer Nonreactive (NONREACTIVE) 08/05/17 07:00 HIV 1&2 Antibody Screen Negative 08/05/17 07:00 HIV P24 Antigen Negative 08/05/17 07:00 Assessment: 08/06/17 09:45 WITHDRAWAL SYMPTOM Plan: CONTINUE DETOX
[2017-08-06] MEDS: PRENATAL VITAMINS W/ FOLIC ACID TABLET (FP) PO SCH (12:07)
[2017-08-06] MEDS: OLANZapine 10 MG TABLET PO SCH (12:08)
[2017-08-06] MEDS: NICOTINE 14 MG/24 HOURS TOPICAL PATCH TD SCH (12:30)
[2017-08-06] MEDS: chlordiazePOXIDE 5 MG CAPSULE PO SCH (22:10)
[2017-08-06] MEDS: THIAMINE HCL 100 MG TABLET (FP) PO SCH (22:10)
[2017-08-07 06:17] VITALS: TEMP 97.9
[2017-08-07] MEDS: chlordiazePOXIDE 5 MG CAPSULE PO SCH ×3 (06:38→17:13)
[2017-08-07] MEDS ORDERED: cloNIDine HCL 0.1 MG TABLET PO ONE (06:53)
--- NOTE | 2017-08-07 06:57 | PN ---
S Progress Note Note: Patient's blood pressure is B/P 141/99. Patient is asymptomatic Vital Signs Temperature 97.9 F 08/07/17 06:00 Pulse Rate 70 08/07/17 06:00 Respiratory Rate 18 08/07/17 06:00 Blood Pressure 141/99 08/07/17 06:00 O2 Sat by Pulse Oximetry (%) Action:Clonidine 0.1mg tablet oral given
--- NOTE | 2017-08-07 09:04 | PN ---
S Progress Note (SOAP) Subjective: ALERT,IRRITABLE,ANXIOUS,INTERRUPTED SLEEP Objective: 08/07/17 09:00 Vital Signs Temperature 97.9 F 08/07/17 06:00 Pulse Rate 70 08/07/17 06:00 Respiratory Rate 18 08/07/17 06:00 Blood Pressure 141/99 08/07/17 06:00 O2 Sat by Pulse Oximetry (%) Assessment: 08/07/17 09:33 WITHDRAWAL SYMPTOM Plan: CONTINUE DETOX,DISCHARGE IN AM
--- NOTE | 2017-08-07 11:56 | PN ---
S Progress Note Note: PATIENT IS STABLE FOR DISCHARGE TODAY,FOLLOW UP WITH [facility]
--- NOTE | 2017-08-07 11:59 | DS ---
[facility] Detox Discharge Summary Admission Date: 08/04/17 Discharge Date: 08/07/17 - History Present History: Alcohol Dependence, Cocaine Dependence Additional Comments: FOLLOW UP WITH [facility] Pertinent Past History: NICOTINE DEPENDENCE SLE BIPOLAR DISORDER - Physical Exam Results Vital Signs: Vital Signs Temperature 97.9 F 08/07/17 09:54 Pulse Rate 75 08/07/17 09:54 Respiratory Rate 14 08/07/17 09:54 Blood Pressure 132/75 08/07/17 09:54 O2 Sat by Pulse Oximetry (%) Pertinent Admission Physical Exam Findings: WITHDRAWAL SIGNS AND SYMPTOM - Treatment Hospital Course: Detox Protocol Followed, Detoxed Safely, Responded well, Discharged Condition Good, Rehab Referral Accepted Patient has Accepted a Rehab Referral to: [facility] - Medication Discharge Medications: Ambulatory Orders Divalproex [Depakote -] 500 mg PO HS #30 tablet.ec 04/02/16 Risperidone [Risperdal -] 3 mg PO HS #30 tablet 04/02/16 Olanzapine [ZyPREXA -] 10 mg PO DAILY #30 tablet 08/05/17 - Diagnosis (1) Alcohol dependence with uncomplicated withdrawal Current Visit: Yes Status: Chronic (2) Cocaine dependence, uncomplicated Current Visit: Yes Status: Chronic (3) Nicotine dependence Current Visit: Yes Status: Chronic Qualifiers: Nicotine product type: cigarettes Substance use status: uncomplicated Qualified Code(s): F17.210 - Nicotine dependence, cigarettes, uncomplicated (4) Bipolar disorder Current Visit: Yes Status: Suspected (5) Lupus (systemic lupus erythematosus) Current Visit: Yes Status: Suspected - AMA Did Patient Leave Against Medical Advice: No
[2017-08-07] MEDS: NICOTINE 14 MG/24 HOURS TOPICAL PATCH TD SCH (12:27)
[2017-08-07] MEDS: PRENATAL VITAMINS W/ FOLIC ACID TABLET (FP) PO SCH (12:28)
[2017-08-07] MEDS: OLANZapine 10 MG TABLET PO SCH (12:28)
[2017-08-07 14:10] VITALS: BP 145/76; PULSE 62
[2017-08-07] MEDS: NICOTINE POLACRILEX 2 MG GUM BC PRN (17:16)
[2017-08-07] MEDS ORDERED: chlordiazePOXIDE HCL 10 MG CAPSULE PO SCH (23:00)
== END 2017-08-07 17:40 | disposition home or self-care (01) | DRG 774 ==
LOC: YASAS 19:29 → Y6N 20:59
PROVIDERS: ADMIT Surgery; ATTEND Surgery
PROC: HZ2ZZZZ Detoxification Services for Substance Abuse Treatment (ICD-10-PCS; principal; 2017-08-04)
DX: F10.230 Alcohol dependence with withdrawal, uncomplicated (principal); F14.20 Cocaine dependence, uncomplicated; F17.213 Nicotine dependence, cigarettes, with withdrawal; F25.9 Schizoaffective disorder, unspecified; F31.9 Bipolar disorder, unspecified; F19.24 Other psychoactive substance dependence with psychoactive substance-induced mood disorder; M32.9 Systemic lupus erythematosus, unspecified; R01.1 Cardiac murmur, unspecified; Z86.19 Personal history of other infectious and parasitic diseases; Z91.5 Personal history of self-harm; Z59.0 Homelessness
CPT/HCPCS: 36415; 80053; 81003; 85027; 86593; 87389; 93005; 93010; J0735

== ENCOUNTER 2017-08-11 11:23 | Inpatient (IN) | payer OTHER ==
[2017-08-11 11:50] VITALS: BMI 24.1
--- NOTE | 2017-08-11 13:59 | HP ---
[facility] Rehab Assess/Revision - Admission History Admitted to Rehab from: [facility] [address] [place] Date of Admission to Rehab: 08/11/17 - Vital signs Vital Signs: Vital Signs Period Temp Pulse Resp BP Sys/Oates Pulse Ox Last 24 Hr 98.2 F 80 20 114/75 - Findings Detox History & Physical reviewed: Yes Concur with findings: Yes Comments/Additional Findings: 57 YEARS OLD MALE COMPLETED DETOX 08/11/17 RETURN TO [facility] FOR REHAB ADMISSION PER PROTOCOL Inpatient Rehab Admission - Rehab Admission Criteria Previous failed treatment: Yes Poor recovery environment: Yes Comorbidities: Yes Lacks judgement: No Patient is meeting Inpatient Rehab admission criteria:: Yes
[2017-08-11] MEDS ORDERED: MAGNESIUM CITRATE 300 ML BOTTLE PO PRN (14:00)
[2017-08-11] MEDS ORDERED: ACETAMINOPHEN 325 MG TABLET (FP) PO PRN (14:00)
[2017-08-11] MEDS ORDERED: MAG HYDROX/AL HYDROX/SIMETH 30 ML UNIT-DOSE CUP PO PRN (14:00)
[2017-08-11] MEDS ORDERED: MENTHOL/PHENOL 1 EACH UD MM PRN (14:00)
[2017-08-11] MEDS ORDERED: MAGNESIUM HYDROX 2400MG/30ML ORAL SUSPENSION 30 ML CUP PO PRN (14:00)
[2017-08-11] MEDS ORDERED: IBUPROFEN 400 MG TABLET (FP) PO PRN (14:00)
[2017-08-11] MEDS ORDERED: guaiFENesin/D-METHORPHAN HB 10 ML UNIT-DOSE CUPS PO PRN (14:00)
[2017-08-11] MEDS ORDERED: LOPERAMIDE HCL 2 MG CAPSULE PO PRN (14:00)
[2017-08-11] MEDS ORDERED: P-EPHED 60MG/TRIPROLIDI 2.5MG TABLET PO PRN (14:00)
[2017-08-11] MEDS ORDERED: NICOTINE 21 MG/24 HOURS TOPICAL PATCH TD PRN (15:00)
[2017-08-11] MEDS: NICOTINE POLACRILEX 4 MG GUM BUC PRN (17:49)
[2017-08-11] MEDS: THIAMINE HCL 100 MG TABLET (FP) PO SCH (22:00)
[2017-08-12] MEDS: PRENATAL VITAMINS W/ FOLIC ACID TABLET (FP) PO SCH (10:56)
--- NOTE | 2017-08-12 12:22 | HP ---
Psychiatrist Admission - Data Date of interview: 08/12/17 Admission source: [facility] Identifying data: Patient is a 57 year old male, father of one, and currently living with a roomate. This is one of multiple admissions to rehab at [facility]. Pt. admitted to [facility] for alcohol and cocaine dependence. 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 Patient reports h/ o four psychiatric hospitalizations, most recently two months ago at [facility] for depression. Outpatient care is provided at [facility] ( [facility]). Patient reports being prescribed risperdal (unknown dose), seroquel 400mg qhs, depakote 500mg BID, and zyprexa 10mg. Pt. only willing to accept zyprexa 10mg. Pt. reports a diagnosis of bipolar disorder + schizoaffective disorder + antisocial behavior disorder. Patient seen by Dr. Ferris while in detox and was prescribed zyprexa 10mg. Pt. reports one suicide attempt via overdose approximately 25 years ago. Patient currently denies suicidal and homicidal ideation. Physical/Sexual Abuse/Trauma History: Denies. Vital Signs: Vital Signs - 24 hr 08/11/17 08/12/17 08/12/17 15:44 00:30 03:30 Temperature 98 F Pulse Rate 79 Respiratory 18 18 18 Rate Blood Pressure 114/69 08/12/17 07:04 Temperature 97.8 F Pulse Rate 77 Respiratory 18 Rate Blood Pressure 131/77 Allergies/Adverse Reactions: Allergies Allergy/AdvReac Type Severity Reaction Status Date / Time No Known Drug Allergies Allergy Verified 08/11/17 12:34 shellfish derived Allergy Verified 08/11/17 12:34 Date of last physical exam: 08/04/17 Concur with the findings of this exam: Yes - Substance Abuse/Tx History Hx Alcohol Use: Yes ( 1/2 pint of vodka and 2-16 oz beer daily) Hx Substance Use: Yes (Cocaine- $50 daily. ) Substance Use Type: Cocaine Hx Substance Use Treatment: Yes Mental Status Exam - Mental Status Exam Alert and Oriented to: Time, Place, Person Cognitive Function: Good Patient Appearance: Well Groomed Mood: Irritable Affect: Mood Congruent Patient Behavior: Guarded Speech Pattern: Appropriate Voice Loudness: Normal Thought Process: Intact, Goal Oriented Thought Disorder: Not Present Hallucinations: Denies Suicidal Ideation: Denies Homicidal Ideation: Denies Insight/Judgement: Poor Sleep: Fair Appetite: Fair Muscle strength/Tone: Normal Gait/Station: Normal Psychiatric Findings - Problem List ([place] 1, 2,3) (1) Alcohol dependence Current Visit: Yes Status: Acute (2) Cocaine dependence Current Visit: Yes Status: Acute (3) Substance induced mood disorder Current Visit: Yes Status: Acute (4) Bipolar disorder Current Visit: Yes Status: Acute - Initial Treatment Plan Initial Treatment Plan: Psychoeducation provided. Rehab in progress. Zyprexa 10mg qhs ordered. Patient refusing to restart depakote and risperdal at this time. Benefits and side effects discussed. Verbal consent given. Will continue to monitor.
[2017-08-12] MEDS: NICOTINE POLACRILEX 4 MG GUM BUC PRN ×3 (14:49→21:55)
[2017-08-12] MEDS: OLANZapine 10 MG TABLET PO SCH (21:54)
[2017-08-12] MEDS: THIAMINE HCL 100 MG TABLET (FP) PO SCH (21:54)
[2017-08-12] MEDS: MELATONIN 5 MG TABLETS PO PRN (21:54)
[2017-08-12] MEDS ORDERED: OLANZapine 10 MG TABLET PO SCH (22:00)
[2017-08-13] MEDS: PRENATAL VITAMINS W/ FOLIC ACID TABLET (FP) PO SCH (10:46)
[2017-08-13] MEDS: NICOTINE POLACRILEX 4 MG GUM BUC PRN ×2 (14:43→21:59)
[2017-08-13] MEDS: MELATONIN 5 MG TABLETS PO PRN (21:59)
[2017-08-13] MEDS: THIAMINE HCL 100 MG TABLET (FP) PO SCH (21:59)
[2017-08-13] MEDS: OLANZapine 10 MG TABLET PO SCH (21:59)
[2017-08-14] MEDS: PRENATAL VITAMINS W/ FOLIC ACID TABLET (FP) PO SCH (10:31)
[2017-08-14] MEDS: NICOTINE POLACRILEX 4 MG GUM BUC PRN ×2 (14:22→21:09)
[2017-08-14] MEDS: OLANZapine 10 MG TABLET PO SCH (21:07)
[2017-08-14] MEDS: THIAMINE HCL 100 MG TABLET (FP) PO SCH (21:07)
[2017-08-14] MEDS: MELATONIN 5 MG TABLETS PO PRN (21:07)
[2017-08-15] MEDS: PRENATAL VITAMINS W/ FOLIC ACID TABLET (FP) PO SCH (10:46)
[2017-08-15] MEDS: NICOTINE POLACRILEX 4 MG GUM BUC PRN ×3 (11:59→21:30)
[2017-08-15] MEDS: OLANZapine 10 MG TABLET PO SCH (21:28)
[2017-08-15] MEDS: THIAMINE HCL 100 MG TABLET (FP) PO SCH (21:28)
[2017-08-15] MEDS: MELATONIN 5 MG TABLETS PO PRN (21:29)
[2017-08-15] MEDS ORDERED: LIDOCAINE VISCOUS 2% ORAL/TOP 20 ML UNIT-DOSE CUP MM PRN (22:52)
[2017-08-16] MEDS: PRENATAL VITAMINS W/ FOLIC ACID TABLET (FP) PO SCH (10:36)
[2017-08-16] MEDS: NICOTINE POLACRILEX 4 MG GUM BUC PRN ×2 (17:02→21:09)
[2017-08-16] MEDS: THIAMINE HCL 100 MG TABLET (FP) PO SCH (21:07)
[2017-08-16] MEDS: OLANZapine 10 MG TABLET PO SCH (21:07)
[2017-08-16] MEDS: MELATONIN 5 MG TABLETS PO PRN (21:09)
[2017-08-17] MEDS: PRENATAL VITAMINS W/ FOLIC ACID TABLET (FP) PO SCH (10:21)
[2017-08-17] MEDS: NICOTINE POLACRILEX 4 MG GUM BUC PRN ×3 (10:22→21:40)
[2017-08-17] MEDS: MELATONIN 5 MG TABLETS PO PRN (21:40)
[2017-08-17] MEDS: OLANZapine 10 MG TABLET PO SCH (21:40)
[2017-08-17] MEDS: THIAMINE HCL 100 MG TABLET (FP) PO SCH (21:40)
[2017-08-18] MEDS: PRENATAL VITAMINS W/ FOLIC ACID TABLET (FP) PO SCH (10:52)
--- NOTE | 2017-08-18 16:14 | PN ---
BHS Progress Note Note: Vital Signs Temperature 97.7 F 08/18/17 07:01 Pulse Rate 78 08/18/17 07:01 Respiratory Rate 18 08/18/17 07:01 Blood Pressure 120/76 08/18/17 07:01 O2 Sat by Pulse Oximetry (%) Pruritus around scrotal area. hydrocortisone top continue to monitor
[2017-08-18] MEDS: HYDROCORTISONE 1% TOPICAL OINT 30 GM TUBE TP PRN (21:24)
[2017-08-18] MEDS: TOLNAFTATE 1% CREAM 15 GM TUBE TP SCH (21:25)
[2017-08-18] MEDS: MELATONIN 5 MG TABLETS PO PRN (21:27)
[2017-08-18] MEDS: THIAMINE HCL 100 MG TABLET (FP) PO SCH (21:27)
[2017-08-18] MEDS: OLANZapine 10 MG TABLET PO SCH (21:27)
[2017-08-18] MEDS: NICOTINE POLACRILEX 4 MG GUM BUC PRN (21:28)
[2017-08-19] MEDS: TOLNAFTATE 1% CREAM 15 GM TUBE TP SCH ×2 (10:33→21:46)
[2017-08-19] MEDS: PRENATAL VITAMINS W/ FOLIC ACID TABLET (FP) PO SCH (10:33)
[2017-08-19] MEDS: NICOTINE POLACRILEX 4 MG GUM BUC PRN ×2 (12:45→21:46)
[2017-08-19] MEDS: THIAMINE HCL 100 MG TABLET (FP) PO SCH (21:44)
[2017-08-19] MEDS: OLANZapine 10 MG TABLET PO SCH (21:45)
[2017-08-19] MEDS: MELATONIN 5 MG TABLETS PO PRN (21:46)
[2017-08-19] MEDS: HYDROCORTISONE 1% TOPICAL OINT 30 GM TUBE TP PRN (21:46)
[2017-08-20] MEDS: HYDROCORTISONE 1% TOPICAL OINT 30 GM TUBE TP PRN (10:27)
[2017-08-20] MEDS: PRENATAL VITAMINS W/ FOLIC ACID TABLET (FP) PO SCH (10:27)
[2017-08-20] MEDS: TOLNAFTATE 1% CREAM 15 GM TUBE TP SCH ×2 (10:28→21:06)
[2017-08-20] MEDS: NICOTINE POLACRILEX 4 MG GUM BUC PRN ×2 (10:28→21:04)
[2017-08-20] MEDS: THIAMINE HCL 100 MG TABLET (FP) PO SCH (21:03)
[2017-08-20] MEDS: OLANZapine 10 MG TABLET PO SCH (21:03)
[2017-08-20] MEDS: MELATONIN 5 MG TABLETS PO PRN (21:03)
[2017-08-20] MEDS ORDERED: PT OWN MED DRAWER 7, Y5N ONE (21:05)
[2017-08-21] MEDS ORDERED: PT OWN MED DRAWER 7, Y5N ONE ×2 (09:25→21:08)
[2017-08-21] MEDS: PRENATAL VITAMINS W/ FOLIC ACID TABLET (FP) PO SCH (10:13)
[2017-08-21] MEDS: TOLNAFTATE 1% CREAM 15 GM TUBE TP SCH ×2 (10:13→21:08)
[2017-08-21] MEDS: NICOTINE POLACRILEX 4 MG GUM BUC PRN ×3 (10:14→21:07)
[2017-08-21] MEDS: DIVALPROEX SODIUM 500 MG TABLET E.C. PO SCH ×2 (10:14→21:07)
[2017-08-21] MEDS: THIAMINE HCL 100 MG TABLET (FP) PO SCH (21:06)
[2017-08-21] MEDS: OLANZapine 10 MG TABLET PO SCH (21:07)
[2017-08-21] MEDS: MELATONIN 5 MG TABLETS PO PRN (21:09)
[2017-08-22] MEDS: PRENATAL VITAMINS W/ FOLIC ACID TABLET (FP) PO SCH (10:17)
[2017-08-22] MEDS: DIVALPROEX SODIUM 500 MG TABLET E.C. PO SCH ×2 (10:17→21:08)
[2017-08-22] MEDS: TOLNAFTATE 1% CREAM 15 GM TUBE TP SCH ×2 (10:17→21:08)
[2017-08-22] MEDS: NICOTINE POLACRILEX 4 MG GUM BUC PRN ×2 (10:19→21:13)
[2017-08-22] MEDS: THIAMINE HCL 100 MG TABLET (FP) PO SCH (21:08)
[2017-08-22] MEDS: OLANZapine 10 MG TABLET PO SCH (21:08)
[2017-08-22] MEDS: MELATONIN 5 MG TABLETS PO PRN (21:09)
[2017-08-23] MEDS: PRENATAL VITAMINS W/ FOLIC ACID TABLET (FP) PO SCH (10:17)
[2017-08-23] MEDS: DIVALPROEX SODIUM 500 MG TABLET E.C. PO SCH ×2 (10:17→21:17)
[2017-08-23] MEDS: TOLNAFTATE 1% CREAM 15 GM TUBE TP SCH ×2 (10:17→21:19)
[2017-08-23] MEDS: NICOTINE POLACRILEX 4 MG GUM BUC PRN ×2 (14:50→21:19)
[2017-08-23] MEDS: THIAMINE HCL 100 MG TABLET (FP) PO SCH (21:17)
[2017-08-23] MEDS: OLANZapine 10 MG TABLET PO SCH (21:17)
[2017-08-23] MEDS: MELATONIN 5 MG TABLETS PO PRN (21:18)
[2017-08-24] MEDS: PRENATAL VITAMINS W/ FOLIC ACID TABLET (FP) PO SCH (10:10)
[2017-08-24] MEDS: DIVALPROEX SODIUM 500 MG TABLET E.C. PO SCH ×2 (10:10→21:30)
[2017-08-24] MEDS: NICOTINE POLACRILEX 4 MG GUM BUC PRN ×2 (10:11→21:30)
[2017-08-24] MEDS: TOLNAFTATE 1% CREAM 15 GM TUBE TP SCH ×2 (10:12→21:31)
[2017-08-24] MEDS: THIAMINE HCL 100 MG TABLET (FP) PO SCH (21:29)
[2017-08-24] MEDS: OLANZapine 10 MG TABLET PO SCH (21:30)
[2017-08-24] MEDS: MELATONIN 5 MG TABLETS PO PRN (21:30)
[2017-08-25] MEDS: PRENATAL VITAMINS W/ FOLIC ACID TABLET (FP) PO SCH (09:56)
[2017-08-25] MEDS: DIVALPROEX SODIUM 500 MG TABLET E.C. PO SCH ×2 (09:56→21:00)
[2017-08-25] MEDS: NICOTINE POLACRILEX 4 MG GUM BUC PRN ×3 (09:56→21:01)
[2017-08-25] MEDS: TOLNAFTATE 1% CREAM 15 GM TUBE TP SCH ×2 (10:56→22:10)
[2017-08-25] MEDS: hydrOXYzine PAMOATE 50 MG CAPSULE (FP) PO PRN (13:32)
[2017-08-25] MEDS: THIAMINE HCL 100 MG TABLET (FP) PO SCH (21:00)
[2017-08-25] MEDS: MELATONIN 5 MG TABLETS PO PRN (21:00)
[2017-08-25] MEDS: OLANZapine 10 MG TABLET PO SCH (21:00)
[2017-08-26] MEDS: PRENATAL VITAMINS W/ FOLIC ACID TABLET (FP) PO SCH (10:17)
[2017-08-26] MEDS: hydrOXYzine PAMOATE 50 MG CAPSULE (FP) PO PRN ×2 (10:17→21:44)
[2017-08-26] MEDS: TOLNAFTATE 1% CREAM 15 GM TUBE TP SCH ×2 (10:17→21:45)
[2017-08-26] MEDS: DIVALPROEX SODIUM 500 MG TABLET E.C. PO SCH ×2 (10:17→21:44)
[2017-08-26] MEDS: NICOTINE POLACRILEX 4 MG GUM BUC PRN ×3 (10:22→21:44)
[2017-08-26] MEDS: OLANZapine 10 MG TABLET PO SCH (21:44)
[2017-08-26] MEDS: MELATONIN 5 MG TABLETS PO PRN (21:44)
[2017-08-26] MEDS: THIAMINE HCL 100 MG TABLET (FP) PO SCH (21:44)
[2017-08-27] MEDS: TOLNAFTATE 1% CREAM 15 GM TUBE TP SCH ×2 (10:42→21:19)
[2017-08-27] MEDS: PRENATAL VITAMINS W/ FOLIC ACID TABLET (FP) PO SCH (10:42)
[2017-08-27] MEDS: DIVALPROEX SODIUM 500 MG TABLET E.C. PO SCH ×2 (10:42→21:20)
[2017-08-27] MEDS: NICOTINE POLACRILEX 4 MG GUM BUC PRN ×3 (14:38→22:09)
[2017-08-27] MEDS: OLANZapine 10 MG TABLET PO SCH (21:20)
[2017-08-27] MEDS: THIAMINE HCL 100 MG TABLET (FP) PO SCH (21:20)
[2017-08-27] MEDS: MELATONIN 5 MG TABLETS PO PRN (21:21)
[2017-08-27] MEDS: hydrOXYzine PAMOATE 50 MG CAPSULE (FP) PO PRN (21:23)
[2017-08-28] MEDS: NICOTINE POLACRILEX 4 MG GUM BUC PRN ×4 (06:13→21:27)
[2017-08-28] MEDS: DIVALPROEX SODIUM 500 MG TABLET E.C. PO SCH ×2 (10:05→21:27)
[2017-08-28] MEDS: PRENATAL VITAMINS W/ FOLIC ACID TABLET (FP) PO SCH (10:05)
[2017-08-28] MEDS: hydrOXYzine PAMOATE 50 MG CAPSULE (FP) PO PRN ×2 (10:06→21:28)
[2017-08-28] MEDS: TOLNAFTATE 1% CREAM 15 GM TUBE TP SCH ×2 (10:07→23:50)
[2017-08-28] MEDS: THIAMINE HCL 100 MG TABLET (FP) PO SCH (21:27)
[2017-08-28] MEDS: OLANZapine 10 MG TABLET PO SCH (21:27)
[2017-08-28] MEDS: MELATONIN 5 MG TABLETS PO PRN (21:29)
[2017-08-29] MEDS: NICOTINE POLACRILEX 4 MG GUM BUC PRN ×4 (06:56→21:13)
[2017-08-29] MEDS: PRENATAL VITAMINS W/ FOLIC ACID TABLET (FP) PO SCH (09:59)
[2017-08-29] MEDS: DIVALPROEX SODIUM 500 MG TABLET E.C. PO SCH ×2 (09:59→21:11)
[2017-08-29] MEDS: hydrOXYzine PAMOATE 50 MG CAPSULE (FP) PO PRN ×2 (10:00→21:12)
[2017-08-29] MEDS: TOLNAFTATE 1% CREAM 15 GM TUBE TP SCH ×2 (10:50→23:24)
[2017-08-29] MEDS: OLANZapine 10 MG TABLET PO SCH (21:11)
[2017-08-29] MEDS: THIAMINE HCL 100 MG TABLET (FP) PO SCH (21:11)
[2017-08-29] MEDS: MELATONIN 5 MG TABLETS PO PRN (21:11)
[2017-08-30] MEDS: NICOTINE POLACRILEX 4 MG GUM BUC PRN ×4 (06:05→14:55)
[2017-08-30] MEDS ORDERED: PT OWN MED DRAWER 7, Y5N ONE ×2 (09:04→20:56)
[2017-08-30] MEDS: TOLNAFTATE 1% CREAM 15 GM TUBE TP SCH ×2 (10:17→23:03)
[2017-08-30] MEDS: PRENATAL VITAMINS W/ FOLIC ACID TABLET (FP) PO SCH (10:18)
[2017-08-30] MEDS: DIVALPROEX SODIUM 500 MG TABLET E.C. PO SCH ×2 (10:18→21:01)
[2017-08-30] MEDS: hydrOXYzine PAMOATE 50 MG CAPSULE (FP) PO PRN ×2 (10:19→21:04)
--- NOTE | 2017-08-30 10:53 | PN ---
BHS Progress Note Note: Patient scheduled for d/c tomorrow. Patient to follow with PMD upon discharge.
[2017-08-30] MEDS: OLANZapine 10 MG TABLET PO SCH (21:01)
[2017-08-30] MEDS: THIAMINE HCL 100 MG TABLET (FP) PO SCH (21:01)
[2017-08-30] MEDS: MELATONIN 5 MG TABLETS PO PRN (21:04)
[2017-08-31] MEDS: NICOTINE POLACRILEX 4 MG GUM BUC PRN (06:25)
[2017-08-31 07:15] VITALS: BP 121/75; PULSE 95; TEMP 97.7
--- NOTE | 2017-08-31 08:30 | PN ---
S Progress Note Note: Patient discharge home on current medications, Rec: to continue Zyprexa 10mg po qhs, Depakote 500mg po bid on outpatient basis
[2017-08-31] MEDS ORDERED: PT OWN MED DRAWER 7, Y5N ONE (09:09)
== END 2017-08-31 09:02 | disposition home or self-care (01) | DRG 772 ==
LOC: YASAS 11:23 → Y3W 14:32
PROVIDERS: ADMIT Psychiatry & Neurology Psychiatry; ATTEND Psychiatry & Neurology Psychiatry
PROC: HZ42ZZZ Group Counseling for Substance Abuse Treatment, Cognitive-Behavioral (ICD-10-PCS; principal; 2017-08-11)
DX: F10.20 Alcohol dependence, uncomplicated (principal); F14.20 Cocaine dependence, uncomplicated; F19.24 Other psychoactive substance dependence with psychoactive substance-induced mood disorder; F31.9 Bipolar disorder, unspecified; L29.1 Pruritus scroti; Z87.438 Personal history of other diseases of male genital organs; Z59.0 Homelessness

== ENCOUNTER 2018-02-02 14:07 | Inpatient (IN) | payer OTHER ==
[2018-02-02 15:12] VITALS: BMI 24.7
--- NOTE | 2018-02-02 15:34 | HP ---
CIWA Score Nausea/Vomitin-No Nausea/No Vomiting Muscle Tremors: None Anxiety: 1-Mildly Anxious Agitation: 0-Normal Activity Paroxysmal Sweats: No Perspiration Orientation: 0-Oriented Tacttile Disturbances: 0-None Auditory Disturbances: 0-None Visual Disturbances: 0-None Headache: 0-None Present CIWA-Ar Total Score: 1 - Admission Criteria OASAS Guidelines: Admission for Medically Managed Detox: Requires at least one of the followin. CIWA greater than 12 2. Seizures within the past 24 hours 3. Delirium tremens within the past 24 hours 4. Hallucinations within the past 24 hours 5. Acute intervention needed for co occurring medical disorder 6. Acute intervention needed for co occurring psychiatric disorder 7. Severe withdrawal that cannot be handled at a lower level of care (continued vomiting, continued diarrhea, abnormal vital signs) requiring intravenous medication and/or fluids 8. Admission ROS [facility] Allergies/Adverse Reactions: Allergies Allergy/AdvReac Type Severity Reaction Status Date / Time No Known Drug Allergies Allergy Verified 08/11/17 12:34 shellfish derived Allergy Verified 08/11/17 12:34 History of Present Illness: patient here requesting detox from ETOH use , reports 1 pint/day and 4 beers since 4 mo ago after completing rehab at this facility , denies tremors / seizures if not drinking , denies blackouts or falls while intoxicated . RENUKA 0.000 Currently asymptomatic except some anxiety from "waiting " . utox + thc, + judy cocaine : 50- $ /day denies aivdu cannabis - 5 $/week PMHX : denies PShx : appy at age 13 Psych : bipolar d/o , depression , m meds : Zyprexa, Zoloft did not bring tobacco 1/2 ppd requesting nrt w/ gum Exam Limitations: No Limitations - Ebola screening Have you traveled outside of the country in the last 21 days: No (N) Have you had contact with anyone from an Ebola affected area: No Have you been sick,other than usual withdrawal symptoms: No Do you have a fever: No - Review of Systems Constitutional: No Symptoms Reported EENT: reports: No Symptoms Reported, Other (reading glasses) Respiratory: reports: No Symptoms reported Cardiac: reports: No Symptoms Reported GI: reports: No Symptoms Reported : reports: No Symptoms Reported Musculoskeletal: reports: No Symptoms Reported Integumentary: reports: No Symptoms Reported Neuro: reports: No Symptoms reported Endocrine: reports: No Symptoms Reported Psychiatric: reports: Orientated x3, Anxious Patient History - Patient Medical History Hx Anemia: No Hx Asthma: No Hx Chronic Obstructive Pulmonary Disease (COPD): No Hx Cancer: No Hx Cardiac Disorders: Yes ("REGURGITATING HEART VESSEL" 3 YRS AGO) Hx Congestive Heart Failure: No Hx Hypertension: No Hx Hypercholesterolemia: No Hx Pacemaker: No HX Cerebrovascular Accident: No Hx Seizures: No Hx Dementia: No Hx Diabetes: No Hx Gastrointestinal Disorders: No Hx Liver Disease: No Hx Genitourinary Disorders: No Hx Sexually Transmitted Disorders: No Hx Renal Disease (ESRD): No Hx Thyroid Disease: No Hx Human Immunodeficiency Virus (HIV): No Hx Hepatitis C: No Hx Depression: Yes Hx Suicide Attempt: Yes (Tried to overdose in 1984;DENIES CURRENT IDEATION) Hx Bipolar Disorder: Yes Hx Schizophrenia: No - Patient Surgical History Past Surgical History: Yes Hx Neurologic Surgery: No Hx Cataract Extraction: No Hx Cardiac Surgery: No Hx Lung Surgery: No Hx Breast Surgery: No Hx Breast Biopsy: No Hx Abdominal Surgery: No Hx Appendectomy: Yes (AT 13 YRS OLD) Hx Cholecystectomy: No Hx Genitourinary Surgery: No Hx Section: No Hx Orthopedic Surgery: No Anesthesia Reaction: No - PPD History Date: 08/06/17 Results: 0MM - Smoking Cessation Smoking history: Current every day smoker Aproximately how many cigarettes per day: 10 Cigars Per Day: 0 Hx Chewing Tobacco Use: No Initiated information on smoking cessation: No Family Disease History - Family Disease History Family Disease History: Other: Father (ALCOHOL) Admission Physical Exam BHS - Vital Signs Vital Signs: Vital Signs - 24 hr 02/02/18 15:10 Temperature 97.1 F L Pulse Rate 104 H Respiratory 19 Rate Blood Pressure 125/88 - Physical General Appearance: Yes: Disheveled, Mild Distress HEENTM: Yes: Within Normal Limits, Hearing grossly Normal, Normocephalic, Normal Voice, Pharynx Normal, Other (many missing teeth) Respiratory: Yes: Chest Non-Tender, Lungs Clear, Normal Breath Sounds Neck: Yes: No masses,lesions,Nodules, Trachea in good position Breast: Yes: Breast Exam Deferred Cardiology: Yes: Regular Rhythm, Regular Rate, Tachycardia Abdominal: Yes: Normal Bowel Sounds, Non Tender Genitourinary: Yes: Within Normal Limits Back: Yes: Normal Inspection Musculoskeletal: Yes: full range of Motion, Gait Steady Extremities: Yes: Normal Capillary Refill, Normal Inspection, Normal Range of Motion Neurological: Yes: Motor Strength 5/5, Normal Mood/Affect - Diagnostic (1) Cannabis dependence Current Visit: Yes Status: Acute (2) Alcohol dependence Current Visit: No Status: Acute Qualifiers: Substance use status: uncomplicated Qualified Code(s): F10.20 - Alcohol dependence, uncomplicated (3) Cocaine dependence Current Visit: No Status: Chronic Qualifiers: Substance use status: uncomplicated Qualified Code(s): F14.20 - Cocaine dependence, uncomplicated (4) Nicotine dependence Current Visit: No Status: Chronic Qualifiers: Nicotine product type: cigarettes Substance use status: uncomplicated Qualified Code(s): F17.210 - Nicotine dependence, cigarettes, uncomplicated BHS Breath Alcohol Content Breath Alcohol Content: 0 Urine Drug Screen - Results Drug Screen Negative: No Urine Drug Screen Results: THC-Marijuana, JUDY-Cocaine
[2018-02-02] MEDS ORDERED: IBUPROFEN 400 MG TABLET (FP) PO PRN (15:37)
[2018-02-02] MEDS ORDERED: MAGNESIUM CITRATE 300 ML BOTTLE PO PRN (15:37)
[2018-02-02] MEDS ORDERED: MAGNESIUM HYDROX 2400MG/30ML ORAL SUSPENSION 30 ML CUP PO PRN (15:37)
[2018-02-02] MEDS ORDERED: ACETAMINOPHEN 325 MG TABLET (FP) PO PRN (15:37)
[2018-02-02] MEDS ORDERED: guaiFENesin/D-METHORPHAN HB 10 ML UNIT-DOSE CUPS PO PRN (15:37)
[2018-02-02] MEDS ORDERED: MENTHOL/PHENOL 1 EACH UD MM PRN (15:37)
[2018-02-02] MEDS ORDERED: MAG HYDROX/AL HYDROX/SIMETH 30 ML UNIT-DOSE CUP PO PRN (15:37)
[2018-02-02] MEDS ORDERED: P-EPHED 60MG/TRIPROLIDI 2.5MG TABLET PO PRN (15:37)
[2018-02-02] MEDS ORDERED: traZODone HCL 50 MG TABLET (FP) PO PRN (15:39)
[2018-02-02] MEDS: diazePAM 5 MG TABLET PO PRN (18:47)
[2018-02-02] MEDS: NICOTINE POLACRILEX 2 MG GUM BC PRN ×2 (18:49→22:48)
[2018-02-02] MEDS ORDERED: MELATONIN 5 MG TABLETS PO PRN (22:00)
[2018-02-02 22:31] LABS: URINE APPEARANCE CLEAR; URINE BILIRUBIN NEGATIVE (<2.0 mg/dL); URINE COLOR YELLOW; URINE GLUCOSE (UA) NEGATIVE (NEGATIVE); URINE KETONE NEGATIVE (NEGATIVE); URINE LEUK ESTERASE NEGATIVE (NEGATIVE); URINE NITRITE NEGATIVE (NEGATIVE); URINE PROTEIN NEGATIVE (NEGATIVE)
[2018-02-02] MEDS: THIAMINE HCL 100 MG TABLET (FP) PO SCH (22:48)
[2018-02-02] MEDS: diazePAM 5 MG TABLET PO SCH (22:48)
[2018-02-03] MEDS: diazePAM 5 MG TABLET PO SCH ×3 (05:47→22:37)
[2018-02-03] MEDS: NICOTINE POLACRILEX 2 MG GUM BC PRN ×3 (05:48→22:51)
--- NOTE | 2018-02-03 07:44 | CONSULT ---
[facility] Psychiatric Consult - Data Date of interview: 02/03/18 Admission source: [facility] Identifying data: This is a 57 years old male, single, father of one, living alone, on PA support, with psychiatric hospitalization history, with history of Bipolar Disorder, patient is here requesting detox from ETOH use , reports Alcohol, Cannabis, Cocaine, and Nicotine dependence history. Substance Abuse History: Patient reports long history of Alcohol, Cocaine, Cannabis dependence,. - Smoking Cessation. Smoking history: Current every day smoker. Aproximately how many cigarettes per day: 10. Cigars Per Day: 0. Hx Chewing Tobacco Use: No. Initiated information on smoking cessation: No Medical History: Heart murmur history, Lupus history, Psychiatric History: Patient reports to carry Bipolar Disorder with most recent psychiatric admission on 2016 at [facility], reports suicidal attempt by OD with psychiatric medications and [facility] psychiatric admission on 1984, reports no suicidal history since then. Currently stable on : Zyprexa 10mg po qhs. Depakote 500mg po qhs Physical/Sexual Abuse/Trauma History: Denies Additional Comment: Zyprexa 10mg po qhs. Depakote 500mg po qhs. Blood Depakote level Mental Status Exam - Mental Status Exam Alert and Oriented to: Place, Person Cognitive Function: Fair Patient Appearance: Well Groomed Mood: Apprehensive Affect: Mood Congruent Patient Behavior: Cooperative Speech Pattern: Appropriate Voice Loudness: Normal Thought Process: Goal Oriented Thought Disorder: Being Controlled Hallucinations: Denies Suicidal Ideation: Denies Homicidal Ideation: Denies Insight/Judgement: Fair Sleep: Difficulty falling asleep Appetite: Fair Muscle strength/Tone: Normal Gait/Station: Normal Additional Comments: Zyprexa 10mg po qhs. Depakote 500mg po qhs. Blood Depakote level Psychiatric Findings - Problem List ([place] 1, 2,3) (1) Cannabis dependence Current Visit: Yes Status: Acute (2) Alcohol dependence Current Visit: No Status: Acute Qualifiers: Substance use status: uncomplicated Qualified Code(s): F10.20 - Alcohol dependence, uncomplicated (3) Bipolar disorder Current Visit: No Status: Acute (4) Drug-induced mood disorder Current Visit: No Status: Acute (5) Heart murmur Current Visit: No Status: Acute (6) Substance induced mood disorder Current Visit: No Status: Acute (7) Alcohol dependence with uncomplicated withdrawal Current Visit: No Status: Chronic (8) Cocaine dependence Current Visit: No Status: Chronic Qualifiers: Substance use status: uncomplicated Qualified Code(s): F14.20 - Cocaine dependence, uncomplicated (9) Nicotine dependence Current Visit: No Status: Chronic Qualifiers: Nicotine product type: cigarettes Substance use status: uncomplicated Qualified Code(s): F17.210 - Nicotine dependence, cigarettes, uncomplicated (10) Bipolar disorder Current Visit: No Status: Suspected (11) Lupus (systemic lupus erythematosus) Current Visit: No Status: Suspected - Initial Treatment Plan Initial Treatment Plan: Zyprexa 10mg po qhs. Depakote 500mg po qhs. Blood Depakote level
[2018-02-03] MEDS: PRENATAL VITAMINS W/ FOLIC ACID TABLET (FP) PO SCH (10:09)
[2018-02-03] MEDS: diazePAM 5 MG TABLET PO PRN (10:09)
[2018-02-03 10:44] LABS: HEMATOCRIT 46.3 % (35.4-49); HEMOGLOBIN 15.1 GM/dL (11.7-16.9); MCH 29.7 pg (25.7-33.7); MCHC 32.5 g/dl (32.0-35.9); MEAN CELL VOLUME 91.4 fl (80-96); MEAN PLT VOLUME 7.7 fl (7.5-11.1); PLATELET COUNT 260 K/MM3 (134-434); RBC 5.06 M/mm3 (4.00-5.60); RDW 17.7 % (11.9-15.9); WHITE BLOOD COUNT 7.5 K/mm3 (4.0-10.0)
--- NOTE | 2018-02-03 11:00 | PN ---
[facility] CIWA - CIWA Score Nausea/Vomitin-Mild Nausea/No Vomiting Muscle Tremors: 4-Moderate,w/Arms Extend Anxiety: 2 Agitation: 3 Paroxysmal Sweats: 1-Minimal Palms Moist Orientation: 1-Uncertain about Date Tacttile Disturbances: 0-None Auditory Disturbances: 0-None Visual Disturbances: 0-None Headache: 0-None Present CIWA-Ar Total Score: 12 S Progress Note (SOAP) Subjective: long history of bipolar disorder none adherence with medications denies suicidal ideation low energy resting on bed Objective: 02/03/18 11:01 Vital Signs Temperature 98.1 F 02/03/18 09:48 Pulse Rate 75 02/03/18 09:48 Respiratory Rate 18 02/03/18 09:48 Blood Pressure 106/58 L 02/03/18 09:48 O2 Sat by Pulse Oximetry (%) Laboratory Last Values WBC 7.5 K/mm3 (4.0-10.0) 02/03/18 07:30 RBC 5.06 M/mm3 (4.00-5.60) 02/03/18 07:30 Hgb 15.1 GM/dL (11.7-16.9) 02/03/18 07:30 Hct 46.3 % (35.4-49) 02/03/18 07:30 MCV 91.4 fl (80-96) 02/03/18 07:30 MCH 29.7 pg (25.7-33.7) 02/03/18 07:30 MCHC 32.5 g/dl (32.0-35.9) 02/03/18 07:30 RDW 17.7 % (11.9-15.9) H 02/03/18 07:30 Plt Count 260 K/MM3 (134-434) 02/03/18 07:30 MPV 7.7 fl (7.5-11.1) 02/03/18 07:30 Urine Color Yellow 02/02/18 22:00 Urine Appearance Clear 02/02/18 22:00 Urine pH 5.0 (5.0-8.0) 02/02/18 22:00 Ur Specific [place] 1.020 (1.010-1.035) 02/02/18 22:00 Urine Protein Negative (NEGATIVE) 02/02/18 22:00 Urine Glucose (UA) Negative (NEGATIVE) 02/02/18 22:00 Urine Ketones Negative (NEGATIVE) 02/02/18 22:00 Urine Blood Negative (NEGATIVE) 02/02/18 22:00 Urine Nitrite Negative (NEGATIVE) 02/02/18 22:00 Urine Bilirubin Negative (<2.0 mg/dL) 02/02/18 22:00 Urine Urobilinogen 2.0 mg/dL (0.2-1.0) 02/02/18 22:00 Ur Leukocyte Esterase Negative (NEGATIVE) 02/02/18 22:00 lab noted Assessment: 02/03/18 11:01 withdrawal sx bipolar I Plan: continue detox psychiatric referral
[2018-02-03 11:40] LABS: ALBUMIN 3.4 g/dl (3.4-5.0); ALK PHOS 111 U/L (45-117); ANION GAP 10 MMOL/L (8-16); BILIRUBIN,TOTAL 0.3 mg/dL (0.2-1); BLOOD UREA NITROGEN 13 mg/dL (7-18); CALCIUM 8.5 mg/dL (8.5-10.1); CHLORIDE 106 mmol/L (98-107); CO2 27 mmol/L (21-32); GLUCOSE,RANDOM 61 mg/dL (74-106); POTASSIUM 3.5 mmol/L (3.5-5.1); SGOT/AST 15 U/L (15-37); SGPT/ALT 23 U/L (13-61); SODIUM 143 mmol/L (136-145); TOT PROT 6.1 g/dl (6.4-8.2)
[2018-02-03] MEDS: OLANZapine 10 MG TABLET PO SCH (22:36)
[2018-02-03] MEDS: DIVALPROEX SODIUM 500 MG TABLET E.C. PO SCH (22:36)
[2018-02-03] MEDS: THIAMINE HCL 100 MG TABLET (FP) PO SCH (22:37)
[2018-02-04] MEDS: diazePAM 5 MG TABLET PO SCH ×2 (10:43→22:51)
[2018-02-04] MEDS: PRENATAL VITAMINS W/ FOLIC ACID TABLET (FP) PO SCH (10:43)
--- NOTE | 2018-02-04 12:25 | PN ---
S CIWA - CIWA Score Nausea/Vomitin-No Nausea/No Vomiting Muscle Tremors: 2 Anxiety: 1-Mildly Anxious Agitation: 1-Slight > Activity Paroxysmal Sweats: 1-Minimal Palms Moist Orientation: 0-Oriented Tacttile Disturbances: 1-Very Mild Itch/Numbness Auditory Disturbances: 1-Very Mild Visual Disturbances: 0-None Headache: 1-Very Mild CIWA-Ar Total Score: 8 BHS Progress Note (SOAP) Subjective: sweat tremor anxiety low energy trouble sleep at night restlessness Objective: 02/04/18 12:24 Vital Signs Temperature 97.9 F 02/04/18 09:28 Pulse Rate 70 02/04/18 09:28 Respiratory Rate 18 02/04/18 09:28 Blood Pressure 102/66 02/04/18 09:28 O2 Sat by Pulse Oximetry (%) Laboratory Last Values WBC 7.5 K/mm3 (4.0-10.0) 02/03/18 07:30 RBC 5.06 M/mm3 (4.00-5.60) 02/03/18 07:30 Hgb 15.1 GM/dL (11.7-16.9) 02/03/18 07:30 Hct 46.3 % (35.4-49) 02/03/18 07:30 MCV 91.4 fl (80-96) 02/03/18 07:30 MCH 29.7 pg (25.7-33.7) 02/03/18 07:30 MCHC 32.5 g/dl (32.0-35.9) 02/03/18 07:30 RDW 17.7 % (11.9-15.9) H 02/03/18 07:30 Plt Count 260 K/MM3 (134-434) 02/03/18 07:30 MPV 7.7 fl (7.5-11.1) 02/03/18 07:30 Sodium 143 mmol/L (136-145) 02/03/18 07:30 Potassium 3.5 mmol/L (3.5-5.1) 02/03/18 07:30 Chloride 106 mmol/L (98-107) 02/03/18 07:30 Carbon Dioxide 27 mmol/L (21-32) 02/03/18 07:30 Anion Gap 10 MMOL/L (8-16) 02/03/18 07:30 BUN 13 mg/dL (7-18) 02/03/18 07:30 Creatinine 1.0 mg/dL (0.55-1.3) 02/03/18 07:30 Creat Clearance w eGFR > 60 (>60) 02/03/18 07:30 Random Glucose 61 mg/dL (74-106) L 02/03/18 07:30 Calcium 8.5 mg/dL (8.5-10.1) 02/03/18 07:30 Total Bilirubin 0.3 mg/dL (0.2-1) 02/03/18 07:30 AST 15 U/L (15-37) 02/03/18 07:30 ALT 23 U/L (13-61) 02/03/18 07:30 Alkaline Phosphatase 111 U/L (45-117) 02/03/18 07:30 Total Protein 6.1 g/dl (6.4-8.2) L 02/03/18 07:30 Albumin 3.4 g/dl (3.4-5.0) 02/03/18 07:30 Urine Color Yellow 02/02/18 22:00 Urine Appearance Clear 02/02/18 22:00 Urine pH 5.0 (5.0-8.0) 02/02/18 22:00 Ur Specific [place] 1.020 (1.010-1.035) 02/02/18 22:00 Urine Protein Negative (NEGATIVE) 02/02/18 22:00 Urine Glucose (UA) Negative (NEGATIVE) 02/02/18 22:00 Urine Ketones Negative (NEGATIVE) 02/02/18 22:00 Urine Blood Negative (NEGATIVE) 02/02/18 22:00 Urine Nitrite Negative (NEGATIVE) 02/02/18 22:00 Urine Bilirubin Negative (<2.0 mg/dL) 02/02/18 22:00 Urine Urobilinogen 2.0 mg/dL (0.2-1.0) 02/02/18 22:00 Ur Leukocyte Esterase Negative (NEGATIVE) 02/02/18 22:00 Valproic Acid 4.4 ug/ml (50-100) L 02/04/18 06:20 RPR Titer Nonreactive (NONREACTIVE) 02/03/18 07:30 lab noted Assessment: 02/04/18 12:25 withdrawal sx Plan: continue detox
[2018-02-04] MEDS: NICOTINE POLACRILEX 2 MG GUM BC PRN ×2 (16:58→23:01)
[2018-02-04] MEDS: THIAMINE HCL 100 MG TABLET (FP) PO SCH (22:50)
[2018-02-04] MEDS: OLANZapine 10 MG TABLET PO SCH (22:51)
[2018-02-04] MEDS: DIVALPROEX SODIUM 500 MG TABLET E.C. PO SCH (22:51)
[2018-02-05] MEDS: NICOTINE POLACRILEX 2 MG GUM BC PRN (08:14)
[2018-02-05] MEDS: PRENATAL VITAMINS W/ FOLIC ACID TABLET (FP) PO SCH (10:48)
[2018-02-05] MEDS: diazePAM 5 MG TABLET PO SCH ×2 (10:49→22:37)
[2018-02-05] MEDS: NICOTINE POLACRILEX 4 MG GUM BUC PRN ×2 (10:52→22:38)
--- NOTE | 2018-02-05 11:36 | PN ---
BHS Progress Note (SOAP) Subjective: irritable agitation sweats Objective: 02/05/18 11:35 Vital Signs Temperature 97.8 F 02/05/18 09:13 Pulse Rate 84 02/05/18 09:13 Respiratory Rate 18 02/05/18 09:13 Blood Pressure 103/55 L 02/05/18 09:13 O2 Sat by Pulse Oximetry (%) aaox3 ambulating no acute distress Assessment: 02/05/18 11:35 withdrawal sx Plan: continue detox increase fluids d/c in am
[2018-02-05] MEDS: THIAMINE HCL 100 MG TABLET (FP) PO SCH (22:36)
[2018-02-05] MEDS: DIVALPROEX SODIUM 500 MG TABLET E.C. PO SCH (22:37)
[2018-02-05] MEDS: OLANZapine 10 MG TABLET PO SCH (22:37)
[2018-02-06 06:56] VITALS: BP 92/64; PULSE 73; TEMP 98.1
[2018-02-06] MEDS: NICOTINE POLACRILEX 4 MG GUM BUC PRN (08:34)
[2018-02-06] MEDS: PRENATAL VITAMINS W/ FOLIC ACID TABLET (FP) PO SCH (09:05)
--- NOTE | 2018-02-06 09:09 | DS ---
[facility] Detox Discharge Summary Admission Date: 02/02/18 Discharge Date: 02/06/18 - History Present History: Alcohol Dependence, Cannabis Dependence, Cocaine Dependence - Physical Exam Results Vital Signs: Vital Signs Temperature 98.1 F 02/06/18 06:56 Pulse Rate 73 02/06/18 06:56 Respiratory Rate 16 02/06/18 06:56 Blood Pressure 92/64 02/06/18 06:56 O2 Sat by Pulse Oximetry (%) - Treatment Hospital Course: Detox Protocol Followed, Detoxed Safely, Responded well, Discharged Condition Good, Rehab Referral Accepted - Medication Discharge Medications: Ambulatory Orders Divalproex [Depakote -] 500 mg PO HS #30 tablet.ec 02/03/18 Olanzapine [ZyPREXA -] 10 mg PO HS #30 tablet 02/03/18 - Diagnosis (1) Bipolar disorder Status: Acute (2) Cannabis dependence Status: Chronic (3) Drug-induced mood disorder Status: Acute (4) Heart murmur Status: Acute (5) Substance induced mood disorder Status: Acute (6) Alcohol dependence with uncomplicated withdrawal Status: Chronic (7) Cocaine dependence Status: Chronic Qualifiers: Substance use status: uncomplicated Qualified Code(s): F14.20 - Cocaine dependence, uncomplicated (8) Cocaine dependence, uncomplicated Status: Chronic (9) Nicotine dependence Status: Chronic Qualifiers: Nicotine product type: cigarettes Substance use status: uncomplicated Qualified Code(s): F17.210 - Nicotine dependence, cigarettes, uncomplicated (10) Bipolar disorder Status: Suspected (11) Lupus (systemic lupus erythematosus) Status: Suspected - AMA Did Patient Leave Against Medical Advice: No
[2018-02-06] MEDS ORDERED: diazePAM 5 MG TABLET PO SCH (10:00)
== END 2018-02-06 09:02 | disposition home or self-care (01) | DRG 774 ==
LOC: YASAS 14:07 → Y6N 17:32
PROVIDERS: ADMIT Neuromusculoskeletal Medicine & OMM; ATTEND Neuromusculoskeletal Medicine & OMM
PROC: HZ2ZZZZ Detoxification Services for Substance Abuse Treatment (ICD-10-PCS; principal; 2018-02-02)
DX: F10.230 Alcohol dependence with withdrawal, uncomplicated (principal); F14.20 Cocaine dependence, uncomplicated; F12.20 Cannabis dependence, uncomplicated; F17.210 Nicotine dependence, cigarettes, uncomplicated; F19.24 Other psychoactive substance dependence with psychoactive substance-induced mood disorder; F31.9 Bipolar disorder, unspecified; R01.1 Cardiac murmur, unspecified; M32.9 Systemic lupus erythematosus, unspecified; Z91.5 Personal history of self-harm
CPT/HCPCS: 36415; 80053; 80164; 81003; 85027; 86593

== ENCOUNTER 2018-02-16 11:27 | Inpatient (IN) | payer OTHER ==
[2018-02-16 11:53] VITALS: BMI 24.4
--- NOTE | 2018-02-16 12:21 | HP ---
[facility] Rehab Assess/Revision - Admission History Admitted to Rehab from: [facility] [place] Date of Admission to Rehab: 02/16/18 - Vital signs Vital Signs: Vital Signs Period Temp Pulse Resp BP Sys/Oates Pulse Ox Last 24 Hr 97.1 F 87 18 110/72 - Findings Detox History & Physical reviewed: Yes Concur with findings: Yes Comments/Additional Findings: for rehab as protocol,completed detox from to 02/06/18 Inpatient Rehab Admission - Initial Determination Are CD services needed?: Yes Free of communicable disease: Yes Not in need of hospitalization: Yes - Rehab Admission Criteria Previous failed treatment: Yes Poor recovery environment: Yes Comorbidities: Yes Lacks judgement: No Patient is meeting Inpatient Rehab admission criteria:: Yes
[2018-02-16] MEDS ORDERED: guaiFENesin/D-METHORPHAN HB 10 ML UNIT-DOSE CUPS PO PRN (12:23)
[2018-02-16] MEDS ORDERED: hydrOXYzine PAMOATE 50 MG CAPSULE (FP) PO PRN (12:23)
[2018-02-16] MEDS ORDERED: P-EPHED 60MG/TRIPROLIDI 2.5MG TABLET PO PRN (12:23)
[2018-02-16] MEDS ORDERED: LOPERAMIDE HCL 2 MG CAPSULE PO PRN (12:23)
[2018-02-16] MEDS ORDERED: IBUPROFEN 400 MG TABLET (FP) PO PRN (12:23)
[2018-02-16] MEDS ORDERED: MAGNESIUM CITRATE 300 ML BOTTLE PO PRN (12:23)
[2018-02-16] MEDS ORDERED: MAGNESIUM HYDROX 2400MG/30ML ORAL SUSPENSION 30 ML CUP PO PRN (12:23)
[2018-02-16] MEDS ORDERED: ACETAMINOPHEN 325 MG TABLET (FP) PO PRN (12:23)
[2018-02-16] MEDS ORDERED: MENTHOL/PHENOL 1 EACH UD MM PRN (12:23)
[2018-02-16] MEDS ORDERED: MAG HYDROX/AL HYDROX/SIMETH 30 ML UNIT-DOSE CUP PO PRN (12:23)
[2018-02-16] MEDS: NICOTINE POLACRILEX 2 MG GUM BUC PRN (18:08)
[2018-02-16] MEDS: THIAMINE HCL 100 MG TABLET (FP) PO SCH (22:34)
[2018-02-16] MEDS: MELATONIN 5 MG TABLETS PO PRN (23:54)
[2018-02-17] MEDS: NICOTINE POLACRILEX 2 MG GUM BUC PRN ×4 (06:24→17:31)
--- NOTE | 2018-02-17 07:30 | HP ---
Psychiatrist Admission - Data Date of interview: 02/17/18 Admission source: [facility] Identifying data: This is the third [facility] admission for this 57 years old single male, father of a 10 years old son, unemployed on public assistance, living alone Medical History: Significant for heart murmur and history of treatment for chlamydia, syphilis and appendectomy. Smokes 10 cigarettes daily Psychiatric History: Reports that his first psychiatric contact was between the age of [age] when he was admitted to [facility] due to suicidal attempt by overdose. He was diagnosed then with Bipolar Disorder and treated with Depakote, Risperdal and Seroquel. Reports to have had multiple subsequent admissions with most recent earlier 2018 to [facility] for depression. Reports seeing a psychiatrist on site at [facility], his housing complex on [address] in [place]. He is prescribed Depakote, Zyprexa 10 mg po HS. He only wants to continue Zyprexa during this curreant admission. Reports multiple previous suicidal attempt by overdose. At present, feels very irritable and sleeps poorly Physical/Sexual Abuse/Trauma History: Denies history of physical, sexual abuse as well as DV relationship Additional Comment: Reports history of multiple arrsts including 5 felony convictions. Denies being on parole/probation at this time Vital Signs: Vital Signs - 24 hr 02/16/18 02/16/18 02/17/18 11:51 13:51 00:30 Temperature 97.1 F L 98.1 F Pulse Rate 87 87 Respiratory 18 18 20 Rate Blood Pressure 110/72 117/80 02/17/18 02/17/18 03:30 06:52 Temperature 98 F Pulse Rate 92 H Respiratory 18 18 Rate Blood Pressure 111/82 Allergies/Adverse Reactions: Allergies Allergy/AdvReac Type Severity Reaction Status Date / Time No Known Drug Allergies Allergy Verified 02/16/18 11:59 shellfish derived AdvReac Severe dizziness Verified 02/16/18 11:59 Date of last physical exam: 02/02/18 Concur with the findings of this exam: Yes - Substance Abuse/Tx History Hx Alcohol Use: Yes Hx Substance Use: Yes Substance Use Type: Alcohol (Started drinking alcohol at age 17, consumes half to one pint of rum & 15x 16oz of beer daily. Last drank on 03/05/18), Cocaine ( Started smoking crack cocaine at age 27, consumes $50 worth daily. Last smoked on 02/13/18) Hx Substance Use Treatment: Yes (3 previous inpt detox & 2 inpt rehab admissions @ [facility]) Mental Status Exam - Mental Status Exam Alert and Oriented to: Time, Place, Person Cognitive Function: Fair Patient Appearance: Well Groomed Mood: Irritable Affect: Appropriate Speech Pattern: Clear Voice Loudness: Normal Thought Process: Intact, Goal Oriented Hallucinations: Denies Suicidal Ideation: Denies Homicidal Ideation: Denies Insight/Judgement: Fair Sleep: Poorly Appetite: Good Muscle strength/Tone: Normal Gait/Station: Normal Psychiatric Findings - Problem List ([place] 1, 2,3) (1) Alcohol dependence Current Visit: Yes Status: Acute (2) Cocaine dependence Current Visit: Yes Status: Acute (3) Nicotine dependence Current Visit: No Status: Chronic Qualifiers: (4) Bipolar disorder Current Visit: No Status: Chronic (5) Substance induced mood disorder Current Visit: Yes Status: Acute (6) Substance-induced sleep disorder Current Visit: Yes Status: Acute (7) Heart murmur Current Visit: No Status: Chronic - Initial Treatment Plan Initial Treatment Plan: 1) Continue Zyprexa 10 mg po HS. 2) Monitor progress
[2018-02-17] MEDS: PRENATAL VITAMINS W/ FOLIC ACID TABLET (FP) PO SCH (09:55)
[2018-02-17] MEDS ORDERED: PT OWN MED DRAWER 7, Y5N ONE (20:39)
[2018-02-17] MEDS: MELATONIN 5 MG TABLETS PO PRN (21:53)
[2018-02-17] MEDS: THIAMINE HCL 100 MG TABLET (FP) PO SCH (21:53)
[2018-02-17] MEDS: OLANZapine 10 MG TABLET PO SCH (21:53)
[2018-02-18] MEDS: NICOTINE POLACRILEX 2 MG GUM BUC PRN (07:04)
[2018-02-18] MEDS: PRENATAL VITAMINS W/ FOLIC ACID TABLET (FP) PO SCH (10:05)
[2018-02-18] MEDS: NICOTINE POLACRILEX 4 MG GUM BUC PRN ×3 (10:06→20:37)
[2018-02-18] MEDS: MELATONIN 5 MG TABLETS PO PRN (21:08)
[2018-02-18] MEDS: OLANZapine 10 MG TABLET PO SCH (21:08)
[2018-02-18] MEDS: THIAMINE HCL 100 MG TABLET (FP) PO SCH (21:08)
[2018-02-19] MEDS: NICOTINE POLACRILEX 4 MG GUM BUC PRN ×3 (06:13→14:47)
[2018-02-19] MEDS: PRENATAL VITAMINS W/ FOLIC ACID TABLET (FP) PO SCH (09:42)
--- NOTE | 2018-02-19 14:58 | PN ---
BHS Progress Note Note: Requesting foot cream for athletes feet: lotrimin cream ordered
[2018-02-19] MEDS: MELATONIN 5 MG TABLETS PO PRN (21:15)
[2018-02-19] MEDS: OLANZapine 10 MG TABLET PO SCH (21:15)
[2018-02-19] MEDS: THIAMINE HCL 100 MG TABLET (FP) PO SCH (21:15)
[2018-02-19] MEDS: CLOTRIMAZOLE 1% CREAM 15 GM TUBE TP SCH (21:15)
[2018-02-20] MEDS: CLOTRIMAZOLE 1% CREAM 15 GM TUBE TP SCH ×2 (10:03→21:12)
[2018-02-20] MEDS: NICOTINE POLACRILEX 4 MG GUM BUC PRN ×5 (10:03→22:02)
[2018-02-20] MEDS: PRENATAL VITAMINS W/ FOLIC ACID TABLET (FP) PO SCH (10:03)
[2018-02-20] MEDS ORDERED: PT OWN MED DRAWER 7, Y5N ONE (20:18)
[2018-02-20] MEDS: MELATONIN 5 MG TABLETS PO PRN (21:13)
[2018-02-20] MEDS: THIAMINE HCL 100 MG TABLET (FP) PO SCH (21:13)
[2018-02-20] MEDS: OLANZapine 10 MG TABLET PO SCH (21:13)
[2018-02-21] MEDS: NICOTINE POLACRILEX 4 MG GUM BUC PRN ×4 (06:20→21:20)
[2018-02-21] MEDS: CLOTRIMAZOLE 1% CREAM 15 GM TUBE TP SCH ×2 (09:51→21:21)
[2018-02-21] MEDS: PRENATAL VITAMINS W/ FOLIC ACID TABLET (FP) PO SCH (09:51)
[2018-02-21] MEDS: MELATONIN 5 MG TABLETS PO PRN (21:20)
[2018-02-21] MEDS: THIAMINE HCL 100 MG TABLET (FP) PO SCH (21:20)
[2018-02-21] MEDS: OLANZapine 10 MG TABLET PO SCH (21:20)
[2018-02-22] MEDS: NICOTINE POLACRILEX 4 MG GUM BUC PRN ×4 (06:19→18:03)
[2018-02-22] MEDS: PRENATAL VITAMINS W/ FOLIC ACID TABLET (FP) PO SCH (09:56)
[2018-02-22] MEDS: CLOTRIMAZOLE 1% CREAM 15 GM TUBE TP SCH ×2 (09:56→21:05)
[2018-02-22] MEDS: OLANZapine 10 MG TABLET PO SCH (21:03)
[2018-02-22] MEDS: THIAMINE HCL 100 MG TABLET (FP) PO SCH (21:04)
[2018-02-22] MEDS: MELATONIN 5 MG TABLETS PO PRN (21:04)
[2018-02-23] MEDS: NICOTINE POLACRILEX 4 MG GUM BUC PRN ×3 (06:51→12:12)
[2018-02-23 06:54] VITALS: BP 116/78; PULSE 94; TEMP 97
[2018-02-23] MEDS: PRENATAL VITAMINS W/ FOLIC ACID TABLET (FP) PO SCH (09:50)
[2018-02-23] MEDS: CLOTRIMAZOLE 1% CREAM 15 GM TUBE TP SCH (09:50)
--- NOTE | 2018-02-23 13:44 | PN ---
Psychiatric Progress Note Vital Signs: Vital Signs Period Temp Pulse Resp BP Sys/Oates Pulse Ox Last 24 Hr 97 F 94 18-20 116/78 Date of Session: 02/23/18 Chief Complaint:: "Discharge" HPI: Patient admitted to [facility] for alcohol dependence. ROS: Significant for heart murmur and history of treatment for chlamydia, syphilis and appendectomy Current Medications: Active Medications Generic Name Dose Route Start Last Admin Trade Name Freq PRN Reason Stop Dose Admin Acetaminophen 650 mg 02/16/18 12:23 Tylenol - PO Q4H PRN FEVER Al Hydroxide/Mg Hydroxide 30 ml 02/16/18 12:23 Mylanta Oral Suspension - PO Q6H PRN DYSPEPSIA Clotrimazole 1 applic 02/19/18 22:00 02/23/18 09:50 Lotrimin 1% Cream - TP 1 applic BID BLADIMIR Administration Eucalyptus/Menthol/Phenol/Sorbitol 1 each 02/16/18 12:23 Cepastat Lozenge - MM Q4H PRN SORE THROAT Guaifenesin 10 ml 02/16/18 12:23 Robitussin Dm - PO Q6H PRN COUGH Hydroxyzine Pamoate 50 mg 02/16/18 12:23 Vistaril - PO Q4H PRN AGITATION Ibuprofen 400 mg 02/16/18 12:23 Motrin - PO Q6H PRN Pain Level 4-6 Loperamide HCl 4 mg 02/16/18 12:23 Imodium - PO Q6H PRN DIARRHEA Magnesium Citrate 300 ml 02/16/18 12:23 Citroma - PO Q48H PRN CONSTIPATION Magnesium Hydroxide 30 ml 02/16/18 12:23 Milk Of Magnesia - PO DAILY PRN CONSTIPATION Melatonin 5 mg 02/16/18 22:00 02/22/18 21:04 Melatonin PO 5 mg HS PRN Administration INSOMNIA Nicotine Polacrilex 4 mg 02/18/18 09:24 02/23/18 12:12 Nicorette Gum - BUC 4 mg Q2H PRN Administration NICOTINE REPLACEMENT RX Olanzapine 10 mg 02/17/18 22:00 02/22/18 21:03 Zyprexa - PO 10 mg HS BLADIMIR Administration Multivit/Folic Acid/Iron 1 tab 02/17/18 10:00 02/23/18 09:50 Vitamins (Sjr) - PO 1 tab DAILY BLADIMIR Administration Pseudoephedrine/Triprolidine 1 combo 02/16/18 12:23 Actifed - PO TID PRN NASAL CONGESTION Thiamine HCl 100 mg 02/16/18 22:00 02/22/18 21:04 Vitamin B1 - PO 100 mg HS BLADIMIR Administration Medication(s) Change(s): No. Current Side Effect: No Lab tests ordered: No ( ) Lab tests reviewed: Yes Provider note:: Patient requesting early discharge on 02/23/18. Patient reports learning minimal information and is looking forward to returning to his [place] apartment. Patient's current outpatient plan is to [facility]. Patient was compliant with zyprexa 10mg, therefore a 30 day prescription of medication will be electronically sent to patient's pharmacy at [facility] at [address] [place] [address]. Patient denies thought or urges to hurt self or others. Patient is stable for discharge on 02/23/18. Total face to face time:: 35 Mental Status Exam - Mental Status Exam Alert and Oriented to: Time, Place, Person Cognitive Function: Good Patient Appearance: Well Groomed Mood: Euthymic, Irritable (irritable towards counselors on unit but easily redirectable) Affect: Mood Congruent Patient Behavior: Cooperative Speech Pattern: Appropriate Voice Loudness: Normal Thought Process: Intact, Goal Oriented Thought Disorder: Not Present Hallucinations: Denies Suicidal Ideation: Denies Homicidal Ideation: Denies Insight/Judgement: Fair Sleep: Well Appetite: Good Muscle strength/Tone: Normal Gait/Station: Normal Psychiatric Treatment Plan - Problem List (1) Alcohol dependence Current Visit: Yes (2) Cocaine dependence Current Visit: Yes (3) Substance induced mood disorder Current Visit: Yes (4) Substance-induced sleep disorder Current Visit: Yes (5) Bipolar disorder Current Visit: No (6) Nicotine dependence Current Visit: No Qualifiers:
== END 2018-02-23 13:48 | disposition home or self-care (01) | DRG 772 ==
LOC: YASAS 11:27 → Y3W 12:20
PROVIDERS: ADMIT Psychiatry & Neurology Psychiatry; ATTEND Psychiatry & Neurology Psychiatry
PROC: HZ42ZZZ Group Counseling for Substance Abuse Treatment, Cognitive-Behavioral (ICD-10-PCS; principal; 2018-02-16)
DX: F10.20 Alcohol dependence, uncomplicated (principal); F14.20 Cocaine dependence, uncomplicated; F12.20 Cannabis dependence, uncomplicated; F17.210 Nicotine dependence, cigarettes, uncomplicated; F19.24 Other psychoactive substance dependence with psychoactive substance-induced mood disorder; F19.282 Other psychoactive substance dependence with psychoactive substance-induced sleep disorder; F31.9 Bipolar disorder, unspecified; F60.9 Personality disorder, unspecified; R01.1 Cardiac murmur, unspecified; G47.00 Insomnia, unspecified; R63.4 Abnormal weight loss; Z68.24 Body mass index [BMI] 24.0-24.9, adult; Z86.19 Personal history of other infectious and parasitic diseases

== ENCOUNTER 2018-04-14 11:38 | Inpatient (IN) | payer OTHER ==
[2018-04-14 12:05] VITALS: BMI 25.8
--- NOTE | 2018-04-14 13:54 | HP ---
CIWA Score Nausea/Vomitin-No Nausea/No Vomiting Muscle Tremors: 1-None Visible, but [place] Anxiety: 4-Mod. Anxious/Guarded Agitation: 0-Normal Activity Paroxysmal Sweats: No Perspiration Orientation: 0-Oriented Tacttile Disturbances: 0-None Auditory Disturbances: 0-None Visual Disturbances: 0-None Headache: 0-None Present CIWA-Ar Total Score: 5 - Admission Criteria OASAS Guidelines: Admission for Medically Managed Detox: Requires at least one of the followin. CIWA greater than 12 2. Seizures within the past 24 hours 3. Delirium tremens within the past 24 hours 4. Hallucinations within the past 24 hours 5. Acute intervention needed for co occurring medical disorder 6. Acute intervention needed for co occurring psychiatric disorder 7. Severe withdrawal that cannot be handled at a lower level of care (continued vomiting, continued diarrhea, abnormal vital signs) requiring intravenous medication and/or fluids 8. Admission ROS [facility] - [facility] Allergies/Adverse Reactions: Allergies Allergy/AdvReac Type Severity Reaction Status Date / Time No Known Drug Allergies Allergy Verified 04/14/18 13:03 shellfish derived AdvReac Severe dizziness Verified 04/14/18 13:03 History of Present Illness: patient here requesting detox from etoh use , reports 16-oz cans beer/day x 6 and 1/2 pint liquor /day , latest use this morning, current keshav as above , current symptoms as above , prior rehab at this facility February 2018 , relapse imeediatley after d/c . Not in outpt . Stopeed taking psych meds 1 week ago - Depakote, ZYprexa, Risperdol , has own psychiatrist at program w/ director case management . cocaine : 50 $ / day denies IVDU tobacco : 1 ppd . PMHX / PSHx : denies PSych : bipolar d/o , depression , PD Exam Limitations: No Limitations - Ebola screening Have you traveled outside of the country in the last 21 days: No Have you had contact with anyone from an Ebola affected area: No Have you been sick,other than usual withdrawal symptoms: No Do you have a fever: No - Review of Systems Constitutional: See HPI EENT: reports: Other (reading glasses , no dysphagia) Respiratory: reports: No Symptoms reported Cardiac: reports: No Symptoms Reported GI: reports: No Symptoms Reported : reports: No Symptoms Reported Musculoskeletal: reports: No Symptoms Reported Integumentary: reports: No Symptoms Reported Neuro: reports: No Symptoms reported Endocrine: reports: No Symptoms Reported Psychiatric: reports: Orientated x3 (see HPI) Patient History - Patient Medical History Hx Anemia: No Hx Asthma: No Hx Chronic Obstructive Pulmonary Disease (COPD): No Hx Cancer: No Hx Cardiac Disorders: No Hx Congestive Heart Failure: No Hx Hypertension: No Hx Hypercholesterolemia: No Hx Pacemaker: No HX Cerebrovascular Accident: No Hx Seizures: No Hx Dementia: No Hx Diabetes: No Hx Gastrointestinal Disorders: No Hx Liver Disease: No Hx Genitourinary Disorders: No Hx Sexually Transmitted Disorders: No Hx Renal Disease (ESRD): No Hx Thyroid Disease: No Hx Human Immunodeficiency Virus (HIV): No Hx Hepatitis C: No Hx Depression: Yes Hx Suicide Attempt: Yes (TRIED TO OVERDOSE ON PILLS (ASPIRINS)N AT AGE 27) Hx Bipolar Disorder: Yes Hx Schizophrenia: No - Patient Surgical History Past Surgical History: Yes Hx Neurologic Surgery: No Hx Cataract Extraction: No Hx Cardiac Surgery: No Hx Lung Surgery: No Hx Breast Surgery: No Hx Breast Biopsy: No Hx Abdominal Surgery: No Hx Appendectomy: Yes (AT 13 YRS OLD) Hx Cholecystectomy: No Hx Genitourinary Surgery: No Hx Section: No Hx Orthopedic Surgery: No Anesthesia Reaction: No - PPD History Previous Implant?: Yes Documented Results: Negative w/proof Date: 08/06/17 Results: NEGATIVE - Smoking Cessation Smoking history: Current every day smoker Have you smoked in the past 12 months: Yes Aproximately how many cigarettes per day: 20 Cigars Per Day: 0 Hx Chewing Tobacco Use: No Initiated information on smoking cessation: No - Substances Abused Alcohol Route: Oral Frequency: 3-6 times per week Amount used: 6 CANS OF BEER (16 OUNCES): 1/2 PINT BACARDI Age of first use: 17 Date of Last Use: 04/14/18 Cocaine Route: Inhalation Frequency: Daily Amount used: $50 Age of first use: 27 Date of Last Use: 04/14/18 Family Disease History - Family Disease History Family Disease History: Other: Father (ALCOHOL), Mother (A & W ) Admission Physical Exam BHS - Vital Signs Vital Signs: Vital Signs - 24 hr 04/14/18 12:00 Temperature 98.3 F Pulse Rate 84 Respiratory 18 Rate Blood Pressure 137/86 - Physical General Appearance: Yes: No Apparent Distress, Disheveled HEENTM: Yes: EOMI, Normocephalic, Normal Voice, Other (poor dentition) Respiratory: Yes: Chest Non-Tender, Lungs Clear, Normal Breath Sounds Neck: Yes: No masses,lesions,Nodules, Trachea in good position Breast: Yes: Breast Exam Deferred Cardiology: Yes: Regular Rhythm, Regular Rate, S1, S2 Abdominal: Yes: Normal Bowel Sounds, Soft Genitourinary: Yes: Within Normal Limits Back: Yes: Normal Inspection Musculoskeletal: Yes: full range of Motion Extremities: Yes: Normal Range of Motion, Non-Tender Neurological: Yes: Motor Strength 5/5 Integumentary: Yes: Normal Color - Diagnostic (1) Alcohol dependence Current Visit: No Status: Acute Qualifiers: Substance use status: with intoxication (2) Cocaine dependence Current Visit: No Status: Chronic Qualifiers: Substance use status: uncomplicated Qualified Code(s): F14.20 - Cocaine dependence, uncomplicated (3) Nicotine dependence Current Visit: No Status: Chronic Qualifiers: Nicotine product type: cigarettes BHS Breath Alcohol Content Breath Alcohol Content: 0.020 Urine Drug Screen - Results Drug Screen Negative: No Urine Drug Screen Results: BREONNA-Cocaine
[2018-04-14] MEDS ORDERED: IBUPROFEN 400 MG TABLET (FP) PO PRN (13:57)
[2018-04-14] MEDS ORDERED: MENTHOL/PHENOL 1 EACH UD MM PRN (13:57)
[2018-04-14] MEDS ORDERED: ACETAMINOPHEN 325 MG TABLET (FP) PO PRN (13:57)
[2018-04-14] MEDS ORDERED: MAGNESIUM HYDROX 2400MG/30ML ORAL SUSPENSION 30 ML CUP PO PRN (13:57)
[2018-04-14] MEDS ORDERED: MAGNESIUM CITRATE 300 ML BOTTLE PO PRN (13:57)
[2018-04-14] MEDS ORDERED: P-EPHED 60MG/TRIPROLIDI 2.5MG TABLET PO PRN (13:57)
[2018-04-14] MEDS ORDERED: hydrOXYzine PAMOATE 50 MG CAPSULE (FP) PO PRN (13:57)
[2018-04-14] MEDS ORDERED: MAG HYDROX/AL HYDROX/SIMETH 30 ML UNIT-DOSE CUP PO PRN (13:57)
[2018-04-14] MEDS ORDERED: chlordiazePOXIDE HCL 25 MG CAPSULE PO PRN (13:57)
[2018-04-14] MEDS: NICOTINE POLACRILEX 2 MG GUM BUC PRN ×2 (15:37→22:10)
[2018-04-14] MEDS: chlordiazePOXIDE HCL 25 MG CAPSULE PO SCH ×2 (17:27→22:09)
[2018-04-14] MEDS: guaiFENesin/D-METHORPHAN HB 10 ML UNIT-DOSE CUPS PO PRN (17:46)
[2018-04-14] MEDS ORDERED: MELATONIN 5 MG TABLETS PO PRN (22:00)
[2018-04-14] MEDS: THIAMINE HCL 100 MG TABLET (FP) PO SCH (22:09)
[2018-04-15] MEDS: chlordiazePOXIDE HCL 25 MG CAPSULE PO SCH ×2 (05:16→10:11)
[2018-04-15] MEDS: NICOTINE POLACRILEX 2 MG GUM BUC PRN (05:17)
--- NOTE | 2018-04-15 07:50 | CONSULT ---
[facility] Psychiatric Consult - Data Date of interview: 04/15/18 Admission source: [facility] Identifying data: This is a 57 years old male, single father of one, living alone, on PA support, wih history of Bipolar Disorder, history of psychiatric hospitalizations, patient is here requesting detox from etoh use , reporting withdrawal symptoms. Patient states havig long history of Alcohol, Cocaine, Nicotine dependence. Substance Abuse History: - Smoking Cessation. Smoking history: Current every day smoker. Have you smoked in the past 12 months: Yes. Aproximately how many cigarettes per day: 20. Cigars Per Day: 0. Hx Chewing Tobacco Use: No. Initiated information on smoking cessation: No. - Substances Abused. Alcohol. Route: Oral. Frequency: 3-6 times per week. Amount used: 6 CANS OF BEER (16 OUNCES): 1/2 PINT BACARDI. Age of first use: 17. Date of Last Use: . Cocaine. Route: Inhalation. Frequency: Daily. Amount used: $50. Age of first use: 27. Date of Last Use: 04/14/18 Medical History: Lupus Erythematosus hisory, Hear murmur history, Weight history Psychiatric History: Patient reports history of Bipolar Disorder with most recent psychiatric admission on about 25 yearsv ago, reports taking prior to admission: Zyprexa 10mg po qhs. Patient reports suicidal attempt by OD on about 25 years ago, no suicidal, homicidal history since then. Physical/Sexual Abuse/Trauma History: Denies Additional Comment: Zyprexa 10mg po qhs Mental Status Exam - Mental Status Exam Alert and Oriented to: Person Cognitive Function: Fair Patient Appearance: Unkempt Affect: Labile Patient Behavior: Talkative, Cooperative Speech Pattern: Appropriate Voice Loudness: Normal Thought Process: Goal Oriented Hallucinations: Denies Suicidal Ideation: Denies Homicidal Ideation: Denies Insight/Judgement: Fair Sleep: Difficulty falling asleep Appetite: Weight loss Muscle strength/Tone: Normal Gait/Station: Shuffling Additional Comments: Zyprexa 10mg po qhs Psychiatric Findings - Problem List ([place] 1, 2,3) (1) Alcohol dependence Current Visit: No Status: Acute Qualifiers: Substance use status: with intoxication (2) Drug-induced mood disorder Current Visit: No Status: Acute (3) Personality disorder Current Visit: No Status: Acute (4) Substance induced mood disorder Current Visit: No Status: Acute (5) Substance-induced sleep disorder Current Visit: No Status: Acute (6) Bipolar disorder Current Visit: No Status: Chronic (7) Cannabis dependence Current Visit: No Status: Chronic (8) Cocaine dependence Current Visit: No Status: Chronic Qualifiers: (9) Heart murmur Current Visit: No Status: Chronic (10) Bipolar disorder Current Visit: No Status: Suspected (11) Lupus (systemic lupus erythematosus) Current Visit: No Status: Suspected - Initial Treatment Plan Initial Treatment Plan: Zyprexa 10mg po qhs. Observation
[2018-04-15] MEDS: PRENATAL VITAMINS W/ FOLIC ACID TABLET (FP) PO SCH (10:11)
[2018-04-15] MEDS: NICOTINE POLACRILEX 4 MG GUM BUC PRN ×3 (10:12→22:18)
[2018-04-15 10:36] LABS: HEMATOCRIT 42.9 % (35.4-49); HEMOGLOBIN 14.9 GM/dL (11.7-16.9); MCH 32.9 pg (25.7-33.7); MCHC 34.7 g/dl (32.0-35.9); MEAN CELL VOLUME 94.7 fl (80-96); MEAN PLT VOLUME 8.4 fl (7.5-11.1); PLATELET COUNT 284 K/MM3 (134-434); RBC 4.54 M/mm3 (4.00-5.60); RDW 15.1 % (11.9-15.9); WHITE BLOOD COUNT 6.1 K/mm3 (4.0-10.0)
--- NOTE | 2018-04-15 10:50 | PN ---
[facility] CIWA - CIWA Score Nausea/Vomitin-No Nausea/No Vomiting Muscle Tremors: 2 Anxiety: 3 Agitation: 2 Paroxysmal Sweats: 1-Minimal Palms Moist Orientation: 1-Uncertain about Date Tacttile Disturbances: 0-None Auditory Disturbances: 0-None Visual Disturbances: 0-None Headache: 2-Mild CIWA-Ar Total Score: 11 S Progress Note (SOAP) Subjective: tremor anxiety restlessness Objective: 04/15/18 11:40 Vital Signs Temperature 97.8 F 04/15/18 09:13 Pulse Rate 76 04/15/18 09:13 Respiratory Rate 18 04/15/18 09:13 Blood Pressure 113/70 04/15/18 09:13 O2 Sat by Pulse Oximetry (%) Laboratory Last Values WBC 6.1 K/mm3 (4.0-10.0) 04/15/18 06:00 RBC 4.54 M/mm3 (4.00-5.60) 04/15/18 06:00 Hgb 14.9 GM/dL (11.7-16.9) 04/15/18 06:00 Hct 42.9 % (35.4-49) 04/15/18 06:00 MCV 94.7 fl (80-96) 04/15/18 06:00 MCH 32.9 pg (25.7-33.7) D 04/15/18 06:00 MCHC 34.7 g/dl (32.0-35.9) 04/15/18 06:00 RDW 15.1 % (11.9-15.9) D 04/15/18 06:00 Plt Count 284 K/MM3 (134-434) 04/15/18 06:00 MPV 8.4 fl (7.5-11.1) 04/15/18 06:00 Sodium 144 mmol/L (136-145) 04/15/18 06:00 Potassium 3.5 mmol/L (3.5-5.1) 04/15/18 06:00 Chloride 109 mmol/L (98-107) H 04/15/18 06:00 Carbon Dioxide 26 mmol/L (21-32) 04/15/18 06:00 Anion Gap 9 MMOL/L (8-16) 04/15/18 06:00 BUN 18 mg/dL (7-18) 04/15/18 06:00 Creatinine 1.1 mg/dL (0.55-1.3) 04/15/18 06:00 Creat Clearance w eGFR > 60 (>60) 04/15/18 06:00 Random Glucose 131 mg/dL (74-106) H 04/15/18 06:00 Calcium 9.1 mg/dL (8.5-10.1) 04/15/18 06:00 Total Bilirubin 0.3 mg/dL (0.2-1) 04/15/18 06:00 AST 12 U/L (15-37) L 04/15/18 06:00 ALT 16 U/L (13-61) 04/15/18 06:00 Alkaline Phosphatase 94 U/L (45-117) 04/15/18 06:00 Total Protein 6.2 g/dl (6.4-8.2) L 04/15/18 06:00 Albumin 3.6 g/dl (3.4-5.0) 04/15/18 06:00 lab noted Assessment: 04/15/18 11:40 withdrawal sx Plan: continue detox
[2018-04-15 11:16] LABS: ALBUMIN 3.6 g/dl (3.4-5.0); ALK PHOS 94 U/L (45-117); ANION GAP 9 MMOL/L (8-16); BILIRUBIN,TOTAL 0.3 mg/dL (0.2-1); BLOOD UREA NITROGEN 18 mg/dL (7-18); CALCIUM 9.1 mg/dL (8.5-10.1); CHLORIDE 109 mmol/L (98-107); CO2 26 mmol/L (21-32); CREATININE 1.1 mg/dL (0.55-1.3); GLUCOSE,RANDOM 131 mg/dL (74-106); POTASSIUM 3.5 mmol/L (3.5-5.1); SGOT/AST 12 U/L (15-37); SGPT/ALT 16 U/L (13-61); SODIUM 144 mmol/L (136-145); TOT PROT 6.2 g/dl (6.4-8.2)
[2018-04-15] MEDS: chlordiazePOXIDE 5 MG CAPSULE PO SCH ×2 (17:55→22:18)
[2018-04-15] MEDS: OLANZapine 10 MG TABLET PO SCH (22:18)
[2018-04-15] MEDS: THIAMINE HCL 100 MG TABLET (FP) PO SCH (22:18)
[2018-04-16] MEDS: chlordiazePOXIDE 5 MG CAPSULE PO SCH ×2 (06:34→10:22)
[2018-04-16] MEDS: NICOTINE POLACRILEX 4 MG GUM BUC PRN ×3 (06:34→22:17)
[2018-04-16] MEDS: PRENATAL VITAMINS W/ FOLIC ACID TABLET (FP) PO SCH (10:22)
[2018-04-16] MEDS: chlordiazePOXIDE HCL 10 MG CAPSULE PO SCH ×2 (17:55→22:17)
--- NOTE | 2018-04-16 18:11 | PN ---
S CIWA - CIWA Score Nausea/Vomitin-No Nausea/No Vomiting Muscle Tremors: 3 Anxiety: 4-Mod. Anxious/Guarded Agitation: 0-Normal Activity Paroxysmal Sweats: No Perspiration Orientation: 0-Oriented Tacttile Disturbances: 0-None Auditory Disturbances: 1-Very Mild Visual Disturbances: 3-Moderate Sensitivity Headache: 0-None Present CIWA-Ar Total Score: 11 BHS Progress Note (SOAP) Subjective: Tremors, Anxiety, Fatigue. Objective: PATIENT A & O X 3. IN NO ACUTE DISTRESS. 04/16/18 18:12 Vital Signs Temperature 98.2 F 04/16/18 17:03 Pulse Rate 73 04/16/18 17:03 Respiratory Rate 20 04/16/18 17:03 Blood Pressure 104/60 04/16/18 17:03 O2 Sat by Pulse Oximetry (%) Laboratory Tests 04/15/18 04/15/18 04/15/18 06:00 06:00 06:00 WBC 6.1 RBC 4.54 Hgb 14.9 Hct 42.9 MCV 94.7 MCH 32.9 D MCHC 34.7 RDW 15.1 D Plt Count 284 MPV 8.4 Sodium 144 Potassium 3.5 Chloride 109 H Carbon Dioxide 26 Anion Gap 9 BUN 18 Creatinine 1.1 Creat Clearance w eGFR > 60 Random Glucose 131 H Calcium 9.1 Total Bilirubin 0.3 AST 12 L ALT 16 Alkaline Phosphatase 94 Total Protein 6.2 L Albumin 3.6 RPR Titer HIV 1&2 Antibody Screen Negative HIV P24 Antigen Negative 04/15/18 06:00 WBC RBC Hgb Hct MCV MCH MCHC RDW Plt Count MPV Sodium Potassium Chloride Carbon Dioxide Anion Gap BUN Creatinine Creat Clearance w eGFR Random Glucose Calcium Total Bilirubin AST ALT Alkaline Phosphatase Total Protein Albumin RPR Titer Nonreactive HIV 1&2 Antibody Screen HIV P24 Antigen LABS NOTED. Assessment: 04/16/18 18:13 WITHDRAWAL SYMPTOMS. Plan: CONTINUE DETOX. INCREASE DAILY PO FLUID INTAKE. ENCOURAGE AMBULATION.
[2018-04-16] MEDS: OLANZapine 10 MG TABLET PO SCH (22:17)
[2018-04-16] MEDS: THIAMINE HCL 100 MG TABLET (FP) PO SCH (22:17)
[2018-04-16] MEDS: guaiFENesin/D-METHORPHAN HB 10 ML UNIT-DOSE CUPS PO PRN (22:35)
[2018-04-17] MEDS: chlordiazePOXIDE HCL 10 MG CAPSULE PO SCH (06:10)
[2018-04-17] MEDS: NICOTINE POLACRILEX 4 MG GUM BUC PRN ×2 (08:23→10:53)
[2018-04-17 09:56] VITALS: BP 108/74; PULSE 101; TEMP 98.1
[2018-04-17] MEDS: PRENATAL VITAMINS W/ FOLIC ACID TABLET (FP) PO SCH (10:03)
--- NOTE | 2018-04-17 20:17 | DS ---
[facility] Detox Discharge Summary Admission Date: 04/14/18 Discharge Date: 04/17/18 - History Present History: Alcohol Dependence, Cannabis Dependence, Cocaine Dependence Additional Comments: PATIENT GOING TO [facility] ([place], [place]) FOR AFTERCARE. PATIENT WAS DISCHARGED FROM DETOX UNIT IN STABLE MEDICAL CONDITION. Pertinent Past History: History of Heart Murmur, History of Bipolar Disorder, History of Lupus Erythematosus, History of Personality Disorder, Nicotine Dependence. - Physical Exam Results Vital Signs: Vital Signs Temperature 98.1 F 04/17/18 09:55 Pulse Rate 101 H 04/17/18 09:55 Respiratory Rate 18 04/17/18 09:55 Blood Pressure 108/74 04/17/18 09:55 O2 Sat by Pulse Oximetry (%) Pertinent Admission Physical Exam Findings: WITHDRAWAL SYMPTOMS. Laboratory Tests 04/15/18 04/15/18 04/15/18 06:00 06:00 06:00 WBC 6.1 RBC 4.54 Hgb 14.9 Hct 42.9 MCV 94.7 MCH 32.9 D MCHC 34.7 RDW 15.1 D Plt Count 284 MPV 8.4 Sodium 144 Potassium 3.5 Chloride 109 H Carbon Dioxide 26 Anion Gap 9 BUN 18 Creatinine 1.1 Creat Clearance w eGFR > 60 Random Glucose 131 H Calcium 9.1 Total Bilirubin 0.3 AST 12 L ALT 16 Alkaline Phosphatase 94 Total Protein 6.2 L Albumin 3.6 RPR Titer HIV 1&2 Antibody Screen Negative HIV P24 Antigen Negative 04/15/18 06:00 WBC RBC Hgb Hct MCV MCH MCHC RDW Plt Count MPV Sodium Potassium Chloride Carbon Dioxide Anion Gap BUN Creatinine Creat Clearance w eGFR Random Glucose Calcium Total Bilirubin AST ALT Alkaline Phosphatase Total Protein Albumin RPR Titer Nonreactive HIV 1&2 Antibody Screen HIV P24 Antigen LABS NOTED. - Treatment Hospital Course: Detox Protocol Followed, Detoxed Safely, Responded well, Discharged Condition Good, Rehab Referral Accepted Patient has Accepted a Rehab Referral to: [facility] ([place], [place]). - Medication Discharge Medications: Ambulatory Orders Divalproex [Depakote -] 500 mg PO HS #30 tablet.ec 02/03/18 Olanzapine [ZyPREXA -] 10 mg PO HS #30 tablet 02/23/18 Olanzapine [ZyPREXA -] 10 mg PO HS #30 tablet 04/15/18 - Diagnosis (1) Drug-induced mood disorder Status: Acute (2) Personality disorder Status: Acute (3) Substance induced mood disorder Status: Acute (4) Substance-induced sleep disorder Status: Acute (5) Alcohol dependence with uncomplicated withdrawal Status: Chronic (6) Bipolar disorder Status: Chronic Qualifiers: Active/Remission status: remission status unspecified Qualified Code(s): F31.9 - Bipolar disorder, unspecified (7) Cannabis dependence Status: Chronic (8) Cocaine dependence, uncomplicated Status: Chronic (9) Heart murmur Status: Chronic (10) Nicotine dependence Status: Chronic Qualifiers: Nicotine product type: cigarettes Substance use status: uncomplicated Qualified Code(s): F17.210 - Nicotine dependence, cigarettes, uncomplicated (11) Bipolar disorder Status: Suspected Qualifiers: Active/Remission status: remission status unspecified Qualified Code(s): F31.9 - Bipolar disorder, unspecified (12) Lupus (systemic lupus erythematosus) Status: Suspected Qualifiers: Systemic lupus erythematosus type: unspecified Systemic lupus erythematosus organ involvement: unspecified Qualified Code(s): M32.9 - Systemic lupus erythematosus, unspecified - AMA Did Patient Leave Against Medical Advice: No
--- NOTE | 2018-04-17 20:35 | PN ---
S Progress Note (SOAP) Subjective: Patient Denies Withdrawal Symptoms and Reports that He Feels Well Overall at This Time. Objective: PATIENT A & O X 3, OBSERVED AMBULATING ON UNIT, IN NO ACUTE DISTRESS. 04/17/18 20:32 Vital Signs Temperature 98.1 F 04/17/18 09:55 Pulse Rate 101 H 04/17/18 09:55 Respiratory Rate 18 04/17/18 09:55 Blood Pressure 108/74 04/17/18 09:55 O2 Sat by Pulse Oximetry (%) Laboratory Tests 04/15/18 04/15/18 04/15/18 06:00 06:00 06:00 WBC 6.1 RBC 4.54 Hgb 14.9 Hct 42.9 MCV 94.7 MCH 32.9 D MCHC 34.7 RDW 15.1 D Plt Count 284 MPV 8.4 Sodium 144 Potassium 3.5 Chloride 109 H Carbon Dioxide 26 Anion Gap 9 BUN 18 Creatinine 1.1 Creat Clearance w eGFR > 60 Random Glucose 131 H Calcium 9.1 Total Bilirubin 0.3 AST 12 L ALT 16 Alkaline Phosphatase 94 Total Protein 6.2 L Albumin 3.6 RPR Titer HIV 1&2 Antibody Screen Negative HIV P24 Antigen Negative 04/15/18 06:00 WBC RBC Hgb Hct MCV MCH MCHC RDW Plt Count MPV Sodium Potassium Chloride Carbon Dioxide Anion Gap BUN Creatinine Creat Clearance w eGFR Random Glucose Calcium Total Bilirubin AST ALT Alkaline Phosphatase Total Protein Albumin RPR Titer Nonreactive HIV 1&2 Antibody Screen HIV P24 Antigen LABS NOTED. Assessment: 04/17/18 20:33 COMPLETION OF DETOX REGIMEN. Plan: PATIENT SCHEDULED FOR DISCHARGE FROM DETOX UNIT TODAY.
== END 2018-04-17 11:30 | disposition home or self-care (01) | DRG 774 ==
LOC: YASAS 11:38 → Y3N 14:32
PROVIDERS: ADMIT Neuromusculoskeletal Medicine & OMM; ATTEND Neuromusculoskeletal Medicine & OMM
PROC: HZ2ZZZZ Detoxification Services for Substance Abuse Treatment (ICD-10-PCS; principal; 2018-04-14)
DX: F10.230 Alcohol dependence with withdrawal, uncomplicated (principal); F14.20 Cocaine dependence, uncomplicated; F12.20 Cannabis dependence, uncomplicated; F17.210 Nicotine dependence, cigarettes, uncomplicated; F19.24 Other psychoactive substance dependence with psychoactive substance-induced mood disorder; F19.282 Other psychoactive substance dependence with psychoactive substance-induced sleep disorder; F60.3 Borderline personality disorder; F30.9 Manic episode, unspecified; R01.1 Cardiac murmur, unspecified; M32.9 Systemic lupus erythematosus, unspecified; Z91.013 Allergy to seafood; Z91.5 Personal history of self-harm
CPT/HCPCS: 36415; 80053; 85027; 86593; 87389

== ENCOUNTER 2019-01-28 13:01 | Inpatient (IN) | payer OTHER ==
[2019-01-28 13:26] VITALS: BMI 22.2
--- NOTE | 2019-01-28 14:49 | HP ---
CIWA Score Nausea/Vomitin-No Nausea/No Vomiting Muscle Tremors: 1-None Visible, but [place] Anxiety: 1-Mildly Anxious Agitation: 4-Moderately Restless Paroxysmal Sweats: 2 Orientation: 0-Oriented Tacttile Disturbances: 0-None Auditory Disturbances: 0-None Visual Disturbances: 0-None Headache: 0-None Present CIWA-Ar Total Score: 8 - Admission Criteria OASAS Guidelines: Admission for Medically Managed Detox: Requires at least one of the followin. CIWA greater than 12 2. Seizures within the past 24 hours 3. Delirium tremens within the past 24 hours 4. Hallucinations within the past 24 hours 5. Acute intervention needed for co occurring medical disorder 6. Acute intervention needed for co occurring psychiatric disorder 7. Severe withdrawal that cannot be handled at a lower level of care (continued vomiting, continued diarrhea, abnormal vital signs) requiring intravenous medication and/or fluids 8. Admitting History and Physical - Admission History Source: Patient Limitations to Obtaining History: No Limitations - Past Medical History Psych: Yes: Addictions, Anxiety, Bipolar, Other (schizoaffective) - Past Surgical History Past Surgical History: Yes: None - Smoking History Smoking history: Current every day smoker Have you smoked in the past 12 months: Yes Aproximately how many cigarettes per day: 20 - Alcohol/Substance Use Hx Alcohol Use: Yes - Social History Usual Living Arrangement: Yes: Alone Admission [facility] Allergies/Adverse Reactions: Allergies Allergy/AdvReac Type Severity Reaction Status Date / Time No Known Drug Allergies Allergy Verified 01/28/19 13:18 shellfish derived AdvReac Severe dizziness Verified 01/28/19 13:18 History of Present Illness: 58 y.o. M PMH bipolar, shizoaffective, depression presenting for detox. EtOH: daily use, drinks 6 beers & 1/2 pint vodka. Last drink this morning had 2 beers. Has been drinking since 17 yrs old. Has passed out from drinking in the past. Never had a seizure. Crack & cocaine: daily use since age 27. Spends $50-$60 per day. Cigarettes: 1 pack per day since age 17 PSH: none Social hx: not currently working. 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 Living w/ SRO. All: nkda. Shellfish allergy Meds: zyprexa, depakote & a few others he cannot remember Exam Limitations: No Limitations - Ebola screening Have you traveled outside of the country in the last 21 days: No (N) Have you had contact with anyone from an Ebola affected area: No Do you have a fever: No - Review of Systems Constitutional: Diaphoresis, Unexplained wgt Loss (20 lb weight loss) EENT: reports: No Symptoms Reported Respiratory: reports: No Symptoms reported Cardiac: reports: No Symptoms Reported GI: reports: No Symptoms Reported Musculoskeletal: reports: No Symptoms Reported Integumentary: reports: No Symptoms Reported Neuro: reports: No Symptoms reported Endocrine: reports: No Symptoms Reported Hematology: reports: No Symptoms Reported Psychiatric: reports: No Sypmtoms Reported Patient History - Patient Medical History Hx Anemia: No Hx Asthma: No Hx Chronic Obstructive Pulmonary Disease (COPD): No Hx Cancer: No Hx Cardiac Disorders: No Hx Congestive Heart Failure: No Hx Hypertension: No Hx Hypercholesterolemia: No Hx Pacemaker: No HX Cerebrovascular Accident: No Hx Seizures: No Hx Dementia: No Hx Diabetes: No Hx Gastrointestinal Disorders: No Hx Liver Disease: No Hx Genitourinary Disorders: No Hx Sexually Transmitted Disorders: No Hx Renal Disease (ESRD): No Hx Thyroid Disease: No Hx Human Immunodeficiency Virus (HIV): No Hx Hepatitis C: No Hx Depression: Yes Hx Suicide Attempt: Yes (TRIED TO OVERDOSE ON PILLS (ASPIRINS)N AT AGE 27) Hx Bipolar Disorder: Yes Hx Schizophrenia: No Other Medical History: schizoaffective - Patient Surgical History Past Surgical History: Yes Hx Neurologic Surgery: No Hx Cataract Extraction: No Hx Cardiac Surgery: No Hx Lung Surgery: No Hx Breast Surgery: No Hx Breast Biopsy: No Hx Abdominal Surgery: No Hx Appendectomy: Yes (AT 13 YRS OLD) Hx Cholecystectomy: No Hx Genitourinary Surgery: No Hx Section: No Hx Orthopedic Surgery: No Anesthesia Reaction: No - PPD History Date: 08/06/17 Results: NEGATIVE - Smoking Cessation Smoking history: Current every day smoker Have you smoked in the past 12 months: Yes Aproximately how many cigarettes per day: 20 Cigars Per Day: 0 Hx Chewing Tobacco Use: No Initiated information on smoking cessation: Yes 'Breaking Loose' booklet given: 01/28/19 - Substance & Tx. History Hx Alcohol Use: Yes Hx Substance Use: Yes Substance Use Type: Cocaine - Substances abused Alcohol Substance route: Oral Frequency: Daily Amount used: 1 pint of vodka & 1 6 pack beer Age of first use: 17 Date of last use: 01/28/19 Cocaine Other (specify): crack Substance route: Smoking Frequency: Daily Amount used: $50 Age of first use: 17 Date of last use: 01/28/19 Admission Physical Exam BHS - Vital Signs Vital Signs: Vital Signs - 24 hr 01/28/19 13:18 Temperature 96.2 F L Pulse Rate 80 Respiratory 18 Rate Blood Pressure 114/75 - Physical General Appearance: Yes: Irritable, Sweating, Anxious HEENTM: Yes: Hearing grossly Normal, Normal ENT Inspection, Normocephalic, SALAS Respiratory: Yes: Lungs Clear, Normal Breath Sounds, No Respiratory Distress, No Accessory Muscle Use Neck: Yes: Within Normal Limits Cardiology: Yes: Regular Rhythm, Regular Rate, S1, S2 Abdominal: Yes: Normal Bowel Sounds, Non Tender, Soft Musculoskeletal: Yes: Within Normal Limits, full range of Motion Extremities: Yes: Within Normal Limits Neurological: Yes: Fully Oriented, Alert Integumentary: Yes: Within Normal Limits - Diagnostic (1) Alcohol dependence Current Visit: No Status: Chronic Qualifiers: Substance use status: uncomplicated Qualified Code(s): F10.20 - Alcohol dependence, uncomplicated Breathalyzer - Breathalyzer Breathalyzer: 0 Urine Drug Screen - Test Device Lot number: [id number] Expiration date: 10/13/20 - Control Is test valid?: Yes - Results Drug screen NEGATIVE: No Urine drug screen results: BREONNA-Cocaine Inpatient Rehab Admission - Rehab Decision to Admit Inpatient rehab admission?: No
[2019-01-28] MEDS ORDERED: IBUPROFEN 400 MG TABLET (FP) PO PRN (15:08)
[2019-01-28] MEDS ORDERED: MAG HYDROX/AL HYDROX/SIMETH 30 ML UNIT-DOSE CUP PO PRN (15:08)
[2019-01-28] MEDS ORDERED: chlordiazePOXIDE HCL 10 MG CAPSULE PO PRN (15:08)
[2019-01-28] MEDS ORDERED: ACETAMINOPHEN 325 MG TABLET (FP) PO PRN ×2 (15:08)
[2019-01-28] MEDS ORDERED: MAGNESIUM CITRATE 300 ML BOTTLE PO PRN (15:08)
[2019-01-28] MEDS ORDERED: BISMUTH SUBSALICYLATE 524 MG/30 ML UD PO PRN (15:08)
[2019-01-28] MEDS ORDERED: METHOCARBAMOL 500 MG TABLET PO PRN (15:08)
[2019-01-28] MEDS ORDERED: MENTHOL/PHENOL 1 EACH UD MM PRN (15:08)
[2019-01-28] MEDS ORDERED: MAGNESIUM HYDROX 2400MG/30ML ORAL SUSPENSION 30 ML CUP PO PRN (15:08)
--- NOTE | 2019-01-28 15:21 | PN ---
Teaching Attending Note Name of Resident: Marguerite Mendez ATTENDING PHYSICIAN STATEMENT I saw and evaluated the patient. I reviewed the resident's note and discussed the case with the resident. I agree with the resident's findings and plan as documented. SUBJECTIVE: patient here requesting detox from etoh use , reports 16-oz cans beer/day x 6 and 1/2 pint liquor /day , latest use this morning , relapsed after d/c from rehab several months ago. Stopped taking psych meds 2 days ago - Depakote, Zyprexa, Risperdol , states has own psychiatrist at program. cocaine : 50 $ / day denies IVDU tobacco : 1 ppd . Psych : bipolar d/o , depression , PD OBJECTIVE: wnwd , anxious , restless, agitated Vital Signs - 24 hr 01/28/19 13:18 Temperature 96.2 F L Pulse Rate 80 Respiratory 18 Rate Blood Pressure 114/75 ASSESSMENT AND PLAN: AUD - Librium detox Cocaine dependence Nicotine dependence - smoking cessation counseling .
--- NOTE | 2019-01-28 16:19 | CONSULT ---
[facility] Psychiatric Consult - Data Date of interview: 01/28/19 Admission source: [facility] Identifying data: Readmission to [facility] for this 58 y/o male self- referred for detoxification (HUNG issues : alcohol, cocaine, nicotine). Interviewed at [address] [place] [address]. 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 Substance Abuse History: Discussed in this session. Details in current [facility] report as follows : Smoking history: Current every day smoker. Have you smoked in the past 12 months: Yes. Aproximately how many cigarettes per day: 20. Cigars Per Day: 0. Hx Chewing Tobacco Use: No. Initiated information on smoking cessation: Yes. 'Breaking Loose' booklet given: 01/28/19. - Substance & Tx. History. Hx Alcohol Use: Yes. Hx Substance Use: Yes. Substance Use Type : Cocaine. - Substances abused. Alcohol. Substance route: Oral. Frequency : Daily. Amount used: 1 pint of vodka & 1 6 pack beer. Age of first use: 17. Date of last use: 01/28/19. Cocaine. Other (specify): crack. Substance route: Smoking. Frequency: Daily. Amount used: $50. Age of first use: 17. Date of last use: 01/28/19 Medical History: Medical profile is remarkable for heart murmur and history of appendectomy + treatment for chlamydia and syphilis. Psychiatric History: Early onset of psychiatric disturbances : age 20 ( psychiatric admission to [facility] for a suicide attempt via overdose with medications). Diagnosed at the time with Bipolar Disorder ( treated with depakote, risperdal and seroquel). Patient presents with a history of multiple admissions (as recently as 2018 to [facility]). Mr Jose Carlos sees the housestaff psychiatrist his SRO residence ([facility] in [facility], for medication management (olanzapine + valproate : doses not recalled). History of multiple suicide attempts via overdoses. Physical/Sexual Abuse/Trauma History: Patient declines to discuss this domain. Additional Comment: Urine drug screen results: BREONNA-Cocaine. Noted. Mental Status Exam - Mental Status Exam Alert and Oriented to: Time, Place, Person Cognitive Function: Good Patient Appearance: Well Groomed Mood: Hopeful, Euthymic Affect: Appropriate, Normal Range Patient Behavior: Fatigued, Appropriate, Cooperative Speech Pattern: Clear Voice Loudness: Normal Thought Process: Intact, Goal Oriented Thought Disorder: Not Present Hallucinations: Denies Suicidal Ideation: Denies Homicidal Ideation: Denies Insight/Judgement: Fair Sleep: Poorly, Difficulty falling asleep Appetite: Good Muscle strength/Tone: Normal Gait/Station: Normal Psychiatric Findings - Problem List ([place] 1, 2,3) (1) Alcohol dependence with uncomplicated withdrawal Current Visit: Yes Status: Chronic (2) Cocaine dependence Current Visit: Yes Status: Chronic Qualifiers: (3) Nicotine dependence Current Visit: Yes Status: Chronic Qualifiers: Nicotine product type: cigarettes Substance use status: uncomplicated Qualified Code(s): F17.210 - Nicotine dependence, cigarettes, uncomplicated (4) Substance induced mood disorder Current Visit: Yes Status: Chronic (5) History of bipolar disorder Current Visit: Yes Status: Chronic Comment: On medications (olanzapine + valproate). (6) Insomnia Current Visit: Yes Status: Chronic - Initial Treatment Plan Initial Treatment Plan: Records ([facility] revisited. Sleep hygiene. Detoxification. MAT services : discussed with patient. AA meetings. Patient declines to resume valproate but he insists on continuing care with olanzapine 10 mg po hs. Ordered. Side effects/benefts of zyprexa discussed with patient. Verbal consent received from Mr Branch. Observation.
[2019-01-28] MEDS: NICOTINE POLACRILEX 2 MG GUM BUC PRN ×2 (16:20→21:25)
[2019-01-28] MEDS: hydrOXYzine PAMOATE 25 MG CAPSULE (FP) PO PRN (16:49)
[2019-01-28] MEDS: THIAMINE HCL 100 MG TABLET (FP) PO SCH (22:07)
[2019-01-28] MEDS: chlordiazePOXIDE HCL 25 MG CAPSULE PO SCH (22:07)
[2019-01-28] MEDS: OLANZapine 10 MG TABLET PO SCH (22:07)
[2019-01-28] MEDS: MELATONIN 5 MG TABLETS PO PRN (22:08)
[2019-01-29] MEDS: chlordiazePOXIDE HCL 25 MG CAPSULE PO SCH ×3 (05:55→22:16)
[2019-01-29] MEDS: NICOTINE POLACRILEX 2 MG GUM BUC PRN ×4 (06:03→22:17)
--- NOTE | 2019-01-29 10:06 | PN ---
[facility] CIWA - CIWA Score Nausea/Vomitin-No Nausea/No Vomiting Muscle Tremors: None Anxiety: 3 Agitation: 0-Normal Activity Paroxysmal Sweats: 3 Orientation: 0-Oriented Tacttile Disturbances: 0-None Auditory Disturbances: 0-None Visual Disturbances: 0-None Headache: 2-Mild CIWA-Ar Total Score: 8 [facility] Progress Note (SOAP) Subjective: c/o headache, sweats, and anxiety. Objective: 01/29/19 10:01 Vital Signs 01/29/19 01/29/19 01/29/19 03:52 06:25 09:04 Temperature 97.5 F L 98.4 F Pulse Rate 64 68 Respiratory 18 18 16 Rate Blood Pressure 115/70 112/64 Labs pending. Assessment: 01/29/19 10:01 AOX3, in no acute respiratory distress. Full ROM, ambulating in the unit. Withdrawal symptoms. Plan: continue detox. Increase fluids.
[2019-01-29] MEDS: PRENATAL VITAMINS W/ FOLIC ACID TABLET (FP) PO SCH (10:16)
[2019-01-29 10:23] LABS: HEMATOCRIT 42.3 % (35.4-49); HEMOGLOBIN 14.2 GM/dL (11.7-16.9); MCH 32.1 pg (25.7-33.7); MCHC 33.6 g/dl (32.0-35.9); MEAN CELL VOLUME 95.5 fl (80-96); MEAN PLT VOLUME 7.4 fl (7.5-11.1); PLATELET COUNT 263 K/MM3 (134-434); RBC 4.44 M/mm3 (4.00-5.60); RDW 13.8 % (11.9-15.9); WHITE BLOOD COUNT 6.1 K/mm3 (4.0-10.0)
[2019-01-29 10:37] LABS: BILIRUBIN,TOTAL 0.2 mg/dL (0.2-1); BLOOD UREA NITROGEN 10.7 mg/dL (7-18); CALCIUM 8.2 mg/dL (8.5-10.1); CREATININE 0.8 mg/dL (0.55-1.3); POTASSIUM 3.7 mmol/L (3.5-5.1); TOT PROT 5.2 g/dl (6.4-8.2)
[2019-01-29] MEDS: OLANZapine 10 MG TABLET PO SCH (22:16)
[2019-01-29] MEDS: hydrOXYzine PAMOATE 25 MG CAPSULE (FP) PO PRN (22:16)
[2019-01-29] MEDS: THIAMINE HCL 100 MG TABLET (FP) PO SCH (22:17)
[2019-01-29] MEDS: MELATONIN 5 MG TABLETS PO PRN (22:17)
[2019-01-30] MEDS: chlordiazePOXIDE 5 MG CAPSULE PO SCH ×3 (06:19→22:14)
[2019-01-30] MEDS: PRENATAL VITAMINS W/ FOLIC ACID TABLET (FP) PO SCH (10:40)
[2019-01-30] MEDS: NICOTINE POLACRILEX 2 MG GUM BUC PRN ×3 (10:40→18:38)
--- NOTE | 2019-01-30 14:01 | PN ---
[facility] CIWA - CIWA Score Nausea/Vomitin-No Nausea/No Vomiting Muscle Tremors: 2 Anxiety: 2 Agitation: 1-Slight > Activity Paroxysmal Sweats: No Perspiration Orientation: 0-Oriented Tacttile Disturbances: 0-None Auditory Disturbances: 0-None Visual Disturbances: 0-None Headache: 0-None Present CIWA-Ar Total Score: 5 S Progress Note (SOAP) Subjective: 58 years old male admitted on 01/28/19 for alcohol withdrawal sx management treated with librium detox regimen feeling better ate breakfast ambulating on hallway discuss nutrition with staff Objective: 01/30/19 14:04 Vital Signs Temperature 98.9 F 01/30/19 09:50 Pulse Rate 70 01/30/19 09:50 Respiratory Rate 18 01/30/19 09:50 Blood Pressure 117/71 01/30/19 09:50 O2 Sat by Pulse Oximetry (%) Vital Signs Laboratory Last Values WBC 6.1 K/mm3 (4.0-10.0) 01/29/19 07:55 RBC 4.44 M/mm3 (4.00-5.60) 01/29/19 07:55 Hgb 14.2 GM/dL (11.7-16.9) 01/29/19 07:55 Hct 42.3 % (35.4-49) 01/29/19 07:55 MCV 95.5 fl (80-96) 01/29/19 07:55 MCH 32.1 pg (25.7-33.7) 01/29/19 07:55 MCHC 33.6 g/dl (32.0-35.9) 01/29/19 07:55 RDW 13.8 % (11.9-15.9) 01/29/19 07:55 Plt Count 263 K/MM3 (134-434) 01/29/19 07:55 MPV 7.4 fl (7.5-11.1) L D 01/29/19 07:55 Sodium 142 mmol/L (136-145) 01/29/19 07:55 Potassium 3.7 mmol/L (3.5-5.1) 01/29/19 07:55 Chloride 111 mmol/L (98-107) H 01/29/19 07:55 Carbon Dioxide 27 mmol/L (21-32) 01/29/19 07:55 Anion Gap 5 MMOL/L (8-16) L 01/29/19 07:55 BUN 10.7 mg/dL (7-18) 01/29/19 07:55 Creatinine 0.8 mg/dL (0.55-1.3) 01/29/19 07:55 Est GFR (CKD-EPI)AfAm 115.74 01/29/19 07:55 Est GFR (CKD-EPI)NonAf 99.86 01/29/19 07:55 Random Glucose 72 mg/dL (74-106) L 01/29/19 07:55 Calcium 8.2 mg/dL (8.5-10.1) L 01/29/19 07:55 Total Bilirubin 0.2 mg/dL (0.2-1) 01/29/19 07:55 AST 12 U/L (15-37) L 01/29/19 07:55 ALT 26 U/L (13-61) 01/29/19 07:55 Alkaline Phosphatase 90 U/L (45-117) 01/29/19 07:55 Total Protein 5.2 g/dl (6.4-8.2) L 01/29/19 07:55 Albumin 3.0 g/dl (3.4-5.0) L 01/29/19 07:55 RPR Titer Nonreactive (NONREACTIVE) 01/29/19 07:55 lab noted Assessment: 01/30/19 14:06 alcohol withdrawal sx Plan: continue librium detox regimen
[2019-01-30] MEDS: OLANZapine 10 MG TABLET PO SCH (22:14)
[2019-01-30] MEDS: THIAMINE HCL 100 MG TABLET (FP) PO SCH (22:14)
[2019-01-30] MEDS: MELATONIN 5 MG TABLETS PO PRN (22:15)
[2019-01-31] MEDS ORDERED: chlordiazePOXIDE HCL 10 MG CAPSULE PO PRN
[2019-01-31] MEDS: chlordiazePOXIDE HCL 10 MG CAPSULE PO SCH ×3 (05:11→21:50)
--- NOTE | 2019-01-31 09:46 | PN ---
[facility] CIWA - CIWA Score Nausea/Vomitin-No Nausea/No Vomiting Muscle Tremors: 1-None Visible, but [place] Anxiety: 1-Mildly Anxious Agitation: 0-Normal Activity Paroxysmal Sweats: No Perspiration Orientation: 0-Oriented Tacttile Disturbances: 0-None Auditory Disturbances: 0-None Visual Disturbances: 0-None Headache: 0-None Present CIWA-Ar Total Score: 2 S Progress Note (SOAP) Subjective: 58 years old male admitted on 01/28/19 for alcohol withdrawal sx management treated with librium detox regimen limited conversation with staff strong recommend to attend meetings and groups ate breakfast discuss lab result encourage alcohol free life style Objective: 01/31/19 09:44 Vital Signs Temperature 98.1 F 01/31/19 09:09 Pulse Rate 87 01/31/19 09:09 Respiratory Rate 18 01/31/19 09:09 Blood Pressure 103/53 L 01/31/19 09:09 O2 Sat by Pulse Oximetry (%) Laboratory Last Values WBC 6.1 K/mm3 (4.0-10.0) 01/29/19 07:55 RBC 4.44 M/mm3 (4.00-5.60) 01/29/19 07:55 Hgb 14.2 GM/dL (11.7-16.9) 01/29/19 07:55 Hct 42.3 % (35.4-49) 01/29/19 07:55 MCV 95.5 fl (80-96) 01/29/19 07:55 MCH 32.1 pg (25.7-33.7) 01/29/19 07:55 MCHC 33.6 g/dl (32.0-35.9) 01/29/19 07:55 RDW 13.8 % (11.9-15.9) 01/29/19 07:55 Plt Count 263 K/MM3 (134-434) 01/29/19 07:55 MPV 7.4 fl (7.5-11.1) L D 01/29/19 07:55 Sodium 142 mmol/L (136-145) 01/29/19 07:55 Potassium 3.7 mmol/L (3.5-5.1) 01/29/19 07:55 Chloride 111 mmol/L (98-107) H 01/29/19 07:55 Carbon Dioxide 27 mmol/L (21-32) 01/29/19 07:55 Anion Gap 5 MMOL/L (8-16) L 01/29/19 07:55 BUN 10.7 mg/dL (7-18) 01/29/19 07:55 Creatinine 0.8 mg/dL (0.55-1.3) 01/29/19 07:55 Est GFR (CKD-EPI)AfAm 115.74 01/29/19 07:55 Est GFR (CKD-EPI)NonAf 99.86 01/29/19 07:55 Random Glucose 72 mg/dL (74-106) L 01/29/19 07:55 Calcium 8.2 mg/dL (8.5-10.1) L 01/29/19 07:55 Total Bilirubin 0.2 mg/dL (0.2-1) 01/29/19 07:55 AST 12 U/L (15-37) L 01/29/19 07:55 ALT 26 U/L (13-61) 01/29/19 07:55 Alkaline Phosphatase 90 U/L (45-117) 01/29/19 07:55 Total Protein 5.2 g/dl (6.4-8.2) L 01/29/19 07:55 Albumin 3.0 g/dl (3.4-5.0) L 01/29/19 07:55 RPR Titer Nonreactive (NONREACTIVE) 01/29/19 07:55 lab noted Assessment: 01/31/19 09:45 alcohol withdrawal sx Plan: continue librium detox regimen
[2019-01-31] MEDS: NICOTINE POLACRILEX 2 MG GUM BUC PRN ×5 (10:05→21:50)
[2019-01-31] MEDS: PRENATAL VITAMINS W/ FOLIC ACID TABLET (FP) PO SCH (10:05)
[2019-01-31] MEDS: THIAMINE HCL 100 MG TABLET (FP) PO SCH (21:50)
[2019-01-31] MEDS: MELATONIN 5 MG TABLETS PO PRN (21:50)
[2019-01-31] MEDS: OLANZapine 10 MG TABLET PO SCH (21:50)
[2019-02-01] MEDS ORDERED: chlordiazePOXIDE HCL 10 MG CAPSULE PO ONE (05:00)
[2019-02-01] MEDS: NICOTINE POLACRILEX 2 MG GUM BUC PRN ×2 (05:08→10:08)
[2019-02-01 09:08] VITALS: BP 112/61; PULSE 87; TEMP 98.1
[2019-02-01] MEDS: PRENATAL VITAMINS W/ FOLIC ACID TABLET (FP) PO SCH (10:08)
--- NOTE | 2019-02-01 10:34 | DS ---
[facility] Detox Discharge Summary Admission Date: 01/28/19 Discharge Date: 02/01/19 - History Present History: Alcohol Dependence Additional Comments: 58 years old male admitted on 01/28/19 for alcohol withdrawal sx management treated with librium detox regimen patient is alert oriented x 3 cardiac s1s2 regular rate rhythm respiratory clear lung bilaterally abdomen soft no rebound tenderness - Physical Exam Results Vital Signs: Vital Signs Temperature 98.1 F 02/01/19 09:07 Pulse Rate 87 02/01/19 09:07 Respiratory Rate 16 02/01/19 09:07 Blood Pressure 112/61 02/01/19 09:07 O2 Sat by Pulse Oximetry (%) Pertinent Admission Physical Exam Findings: alcohol withdrawal sx Laboratory Last Values WBC 6.1 K/mm3 (4.0-10.0) 01/29/19 07:55 RBC 4.44 M/mm3 (4.00-5.60) 01/29/19 07:55 Hgb 14.2 GM/dL (11.7-16.9) 01/29/19 07:55 Hct 42.3 % (35.4-49) 01/29/19 07:55 MCV 95.5 fl (80-96) 01/29/19 07:55 MCH 32.1 pg (25.7-33.7) 01/29/19 07:55 MCHC 33.6 g/dl (32.0-35.9) 01/29/19 07:55 RDW 13.8 % (11.9-15.9) 01/29/19 07:55 Plt Count 263 K/MM3 (134-434) 01/29/19 07:55 MPV 7.4 fl (7.5-11.1) L D 01/29/19 07:55 Sodium 142 mmol/L (136-145) 01/29/19 07:55 Potassium 3.7 mmol/L (3.5-5.1) 01/29/19 07:55 Chloride 111 mmol/L (98-107) H 01/29/19 07:55 Carbon Dioxide 27 mmol/L (21-32) 01/29/19 07:55 Anion Gap 5 MMOL/L (8-16) L 01/29/19 07:55 BUN 10.7 mg/dL (7-18) 01/29/19 07:55 Creatinine 0.8 mg/dL (0.55-1.3) 01/29/19 07:55 Est GFR (CKD-EPI)AfAm 115.74 01/29/19 07:55 Est GFR (CKD-EPI)NonAf 99.86 01/29/19 07:55 Random Glucose 72 mg/dL (74-106) L 01/29/19 07:55 Calcium 8.2 mg/dL (8.5-10.1) L 01/29/19 07:55 Total Bilirubin 0.2 mg/dL (0.2-1) 01/29/19 07:55 AST 12 U/L (15-37) L 01/29/19 07:55 ALT 26 U/L (13-61) 01/29/19 07:55 Alkaline Phosphatase 90 U/L (45-117) 01/29/19 07:55 Total Protein 5.2 g/dl (6.4-8.2) L 01/29/19 07:55 Albumin 3.0 g/dl (3.4-5.0) L 01/29/19 07:55 RPR Titer Nonreactive (NONREACTIVE) 01/29/19 07:55 lab noted - Treatment Hospital Course: Detox Protocol Followed, Detoxed Safely, Responded well, Discharged Condition Good, Rehab Referral Accepted Patient has Accepted [facility] - Medication Discharge Medications: Ambulatory Orders Divalproex [Depakote -] 500 mg PO HS #30 tablet.ec 02/03/18 Olanzapine [ZyPREXA -] 10 mg PO HS #30 tablet 02/23/18 - Diagnosis (1) Alcohol dependence with uncomplicated withdrawal Current Visit: Yes Status: Acute (2) Nicotine dependence Current Visit: Yes Status: Acute Qualifiers: Nicotine product type: cigarettes Substance use status: in withdrawal Qualified Code(s): F17.213 - Nicotine dependence, cigarettes, with withdrawal (3) Substance induced mood disorder Current Visit: Yes Status: Suspected (4) Weight loss Current Visit: Yes Status: Acute - AMA Did Patient Leave Against Medical Advice: No CIWA Score - CIWA Score Nausea/Vomitin-No Nausea/No Vomiting Muscle Tremors: 1-None Visible, but [place] Anxiety: 0-No Anxiety, at Ease Agitation: 0-Normal Activity Paroxysmal Sweats: No Perspiration Orientation: 0-Oriented Tacttile Disturbances: 0-None Auditory Disturbances: 0-None Visual Disturbances: 0-None Headache: 0-None Present CIWA-Ar Total Score: 1
== END 2019-02-01 11:55 | disposition other institution (70) | DRG 774 ==
LOC: YASAS 13:01 → Y3N 15:19
PROVIDERS: ADMIT Allergy & Immunology; ATTEND Allergy & Immunology
PROC: HZ2ZZZZ Detoxification Services for Substance Abuse Treatment (ICD-10-PCS; principal; 2019-01-28)
PROC: HZ2ZZZZ Detoxification Services for Substance Abuse Treatment (ICD-10-PCS; 2019-01-28)
DX: F10.230 Alcohol dependence with withdrawal, uncomplicated (principal); F14.20 Cocaine dependence, uncomplicated; F17.213 Nicotine dependence, cigarettes, with withdrawal; F19.24 Other psychoactive substance dependence with psychoactive substance-induced mood disorder; F31.9 Bipolar disorder, unspecified; R01.1 Cardiac murmur, unspecified; R63.4 Abnormal weight loss; G47.00 Insomnia, unspecified; Z87.438 Personal history of other diseases of male genital organs; Z91.5 Personal history of self-harm; Z91.013 Allergy to seafood
CPT/HCPCS: 36415; 80053; 85027; 86593

== ENCOUNTER 2019-02-01 12:12 | Inpatient (IN) | payer OTHER ==
--- NOTE | 2019-02-01 10:41 | HP ---
[facility] Rehab Assess/Revision - Admission History Admitted to Rehab from: [facility] Date of Admission to Rehab: 02/01/19 - Findings Detox History & Physical reviewed: Yes Concur with findings: Yes Comments/Additional Findings: tranferred from detox to rehab admission as per protocol Inpatient Rehab Admission - Rehab Decision to Admit Inpatient rehab admission?: Yes - Initial Determination Are CD services needed?: Yes Free of communicable disease: Yes Not in need of hospitalization: Yes - Rehab Admission Criteria Previous failed treatment: Yes Poor recovery environment: Yes Comorbidities: Yes Lacks judgement: Yes Patient is meeting Inpatient Rehab admission criteria:: Yes
[~2019-02-01 12:12] MED LIST: ACETAMINOPHEN 325 MG TABLET (FP) PO PRN; IBUPROFEN 400 MG TABLET (FP) PO PRN; LOPERAMIDE HCL 2 MG CAPSULE PO PRN; MAG HYDROX/AL HYDROX/SIMETH 30 ML UNIT-DOSE CUP PO PRN; MAGNESIUM CITRATE 300 ML BOTTLE PO PRN; MAGNESIUM HYDROX 2400MG/30ML ORAL SUSPENSION 30 ML CUP PO PRN; MENTHOL/PHENOL 1 EACH UD MM PRN; NICOTINE 14 MG/24 HOURS TOPICAL PATCH TD PRN; P-EPHED 60MG/TRIPROLIDI 2.5MG TABLET PO PRN; guaiFENesin 200 MG/10 ML 10 ML UNIT-DOSE CUPS PO PRN
[2019-02-01] MEDS: NICOTINE POLACRILEX 2 MG GUM BUC PRN ×2 (17:58→21:31)
[2019-02-01] MEDS: THIAMINE HCL 100 MG TABLET (FP) PO SCH (21:30)
[2019-02-01] MEDS: MELATONIN 5 MG TABLETS PO PRN (21:30)
[2019-02-02] MEDS: NICOTINE POLACRILEX 2 MG GUM BUC PRN ×6 (06:18→22:31)
[2019-02-02] MEDS: PRENATAL VITAMINS W/ FOLIC ACID TABLET (FP) PO SCH (10:18)
--- NOTE | 2019-02-02 14:01 | CONSULT ---
[facility] Psychiatric Consult - Data Date of interview: 02/02/19 Admission source: Self-referred Identifying data: Mr Branch is a 58 years old single male, father of 11 years old son , unemployed receiving public assistance, living in a SRO( [facility]) admitted from detox on 02/01/19 for inpatient rehabilitation for alccohol and cocaine Substance Abuse History: Reports history of alcohol and crack cocaine use. Refer to addiction counselor's summary for further information Medical History: Significant for heart murmur, suspected lupus erythematosus and history of treatment for chlamydia, syphilis and appendectomy. Smokes 10 cigarettes daily Psychiatric History: Reports that his first psychiatric contact was between the age of 20 when he was admitted to [facility] due to suicidal attempt by overdose. He was diagnosed then with Bipolar Disorder and treated with Depakote, Risperdal and Seroquel. Reports multiple subsequent admissions to various facilities including [facility] and [facility] Most recent admissions was for 3 weeks in October 2018 to [facility] [place] for manic episode. Reports seeing a psychiatrist on site at [facility], his housing complex at [address] [place] [address] in [place]. He is prescribed Depakote, Zyprexa 10 mg po HS. He was recently seen by Dr Fierro on 01/28/19 while admitted to detox and he was prescribed Zyprexa 10 mg po HS. Reports multiple previous suicidal attempt by overdose. At present, feels very depressed and sleeps poorly Physical/Sexual Abuse/Trauma History: Denies history of physical, sexual abuse as well as DV relationship Additional Comment: Reports history of multiple arrests including 5 felony convictions. Denies being on parole/probation at this time Mental Status Exam - Mental Status Exam Alert and Oriented to: Time, Place, Person Cognitive Function: Fair Patient Appearance: Well Groomed Mood: Depressed (mildly) Affect: Appropriate Patient Behavior: Cooperative Speech Pattern: Clear Voice Loudness: Normal Thought Process: Intact, Goal Oriented Thought Disorder: Not Present Hallucinations: Denies Suicidal Ideation: Denies Homicidal Ideation: Denies Insight/Judgement: Fair Sleep: Poorly Appetite: Good Muscle strength/Tone: Normal Gait/Station: Normal Psychiatric Findings - Problem List ([place] 1, 2,3) (1) Bipolar disorder Current Visit: No Status: Chronic Qualifiers: Active/Remission status: remission status unspecified Qualified Code(s): F31.9 - Bipolar disorder, unspecified (2) Schizoaffective disorder Current Visit: Yes Status: Ruled-out (3) Substance induced mood disorder Current Visit: No Status: Acute (4) Substance-induced sleep disorder Current Visit: No Status: Acute (5) Alcohol dependence Current Visit: Yes Status: Acute (6) Cocaine dependence Current Visit: No Status: Acute Qualifiers: (7) Nicotine dependence Current Visit: No Status: Acute Qualifiers: Nicotine product type: cigarettes Substance use status: in withdrawal Qualified Code(s): F17.213 - Nicotine dependence, cigarettes, with withdrawal (8) Heart murmur Current Visit: No Status: Chronic - Initial Treatment Plan Initial Treatment Plan: 1) Continue Zyprexa 10 mg po HS. 2) Continue inpatient rehabilitation
[2019-02-02] MEDS: THIAMINE HCL 100 MG TABLET (FP) PO SCH (22:30)
[2019-02-02] MEDS: OLANZapine 10 MG TABLET PO SCH (22:30)
[2019-02-02] MEDS: MELATONIN 5 MG TABLETS PO PRN (22:31)
[2019-02-03] MEDS: NICOTINE POLACRILEX 2 MG GUM BUC PRN ×4 (06:41→19:46)
[2019-02-03] MEDS ORDERED: PT OWN MED DRAWER 7, Y5N ONE (08:49)
[2019-02-03] MEDS: PRENATAL VITAMINS W/ FOLIC ACID TABLET (FP) PO SCH (09:48)
[2019-02-03] MEDS: THIAMINE HCL 100 MG TABLET (FP) PO SCH (21:37)
[2019-02-03] MEDS: MELATONIN 5 MG TABLETS PO PRN (21:37)
[2019-02-03] MEDS: OLANZapine 10 MG TABLET PO SCH (21:37)
[2019-02-04] MEDS: NICOTINE POLACRILEX 2 MG GUM BUC PRN ×4 (06:17→21:23)
[2019-02-04] MEDS: PRENATAL VITAMINS W/ FOLIC ACID TABLET (FP) PO SCH (09:49)
[2019-02-04] MEDS: MELATONIN 5 MG TABLETS PO PRN (21:22)
[2019-02-04] MEDS: THIAMINE HCL 100 MG TABLET (FP) PO SCH (21:22)
[2019-02-04] MEDS: OLANZapine 10 MG TABLET PO SCH (21:22)
[2019-02-05] MEDS: NICOTINE POLACRILEX 2 MG GUM BUC PRN ×2 (06:24→10:14)
[2019-02-05 06:38] VITALS: BP 130/74; PULSE 77; TEMP 97.3
[2019-02-05] MEDS: PRENATAL VITAMINS W/ FOLIC ACID TABLET (FP) PO SCH (10:14)
--- NOTE | 2019-02-05 13:42 | PN ---
S Progress Note Note: informed by nurse that patient would like to leave,stated he is feeling much better and does not want to continue treatment and does not want to leave Vital Signs Temperature 97.3 F L 02/05/19 06:37 Pulse Rate 77 02/05/19 06:37 Respiratory Rate 18 02/05/19 06:37 Blood Pressure 130/74 02/05/19 06:37 O2 Sat by Pulse Oximetry (%) patient left the unit in stable condition
--- NOTE | 2019-02-05 15:17 | DS ---
[facility] Rehab Discharge Summary - [facility] Rehab Discharge Summary Admission Date: 02/01/19 Discharge Date: 02/05/19 - History Present History: Alcohol dependence, Cocaine dependence Additional Comments: patient does not want to complete treatment,left the unit in stable condition, does not want to wait - Discharge Physical Exam Vital Signs: Vital Signs Temperature 97.3 F L 02/05/19 06:37 Pulse Rate 77 02/05/19 06:37 Respiratory Rate 18 02/05/19 06:37 Blood Pressure 130/74 02/05/19 06:37 O2 Sat by Pulse Oximetry (%) Pertinent Admission Physical Exam Findings: Vital Signs Temperature 97.3 F L 02/05/19 06:37 Pulse Rate 77 02/05/19 06:37 Respiratory Rate 18 02/05/19 06:37 Blood Pressure 130/74 02/05/19 06:37 O2 Sat by Pulse Oximetry (%) - Treatment Discharge Condition: Discharge condition good - Medication Discharge Medications: Ambulatory Orders Divalproex [Depakote -] 500 mg PO HS #30 tablet.ec 02/03/18 Olanzapine [ZyPREXA -] 10 mg PO HS #30 tablet 02/23/18 - Discharge Instructions Diet, activity, other medical instructions: Diet: Activity: Other medical instructions: - Diagnosis (1) Alcohol dependence Current Visit: Yes Status: Acute (2) Cocaine dependence Current Visit: No Status: Acute Qualifiers:
== END 2019-02-05 14:30 | disposition left against medical advice (07) | DRG 770 ==
LOC: YASAS 12:12 → Y3W 12:13
PROVIDERS: ADMIT Neuromusculoskeletal Medicine & OMM; ATTEND Neuromusculoskeletal Medicine & OMM
PROC: HZ42ZZZ Group Counseling for Substance Abuse Treatment, Cognitive-Behavioral (ICD-10-PCS; principal; 2019-02-01)
DX: F10.20 Alcohol dependence, uncomplicated (principal); F14.20 Cocaine dependence, uncomplicated; F17.210 Nicotine dependence, cigarettes, uncomplicated; F19.282 Other psychoactive substance dependence with psychoactive substance-induced sleep disorder; F19.24 Other psychoactive substance dependence with psychoactive substance-induced mood disorder; F31.9 Bipolar disorder, unspecified; R01.1 Cardiac murmur, unspecified; Z91.5 Personal history of self-harm; Z91.013 Allergy to seafood

== ENCOUNTER 2019-05-12 13:00 | Inpatient (IN) | payer OTHER ==
--- NOTE | 2019-05-12 14:05 | BHS.RME ---
Substance Use & Tx History - Substance Use History Alcohol Substance amount: 16 beers Frequency of use: Daily Substance route: Oral Date of Last Use: 05/11/19 Cocaine (Crack) Substance amount: $100 Frequency of use: Daily Substance route: Smoking Date of Last Use: 05/11/19 - Last Treatment Date of last treatment: 02/01-02/05/19 Treatment type: Substance Use Disorder (HUNG) Where was last treatment: Rehab Physical/Psych/Mental Status - Behavior General Behavior: Increased activity (restlessness, agitation) Eye Contact: Normal - Cooperativeness Cooperativeness: Cooperative - Thinking Thought Processes: Tight, Logical, Goal Directed Thought content: Future oriented - Physical Health Problems Is patient presently having any pain?: No Does patient presently have any injuries (include location): No Does patient currently have a fever: No Is patient : No CIWA Nausea/Vomitin-No Nausea/No Vomiting Muscle Tremors: 2 Anxiety: 4-Mod. Anxious/Guarded Agitation: 4-Moderately Restless Paroxysmal Sweats: 4-Forehead w/Sweat Beads Orientation: 0-Oriented Tacttile Disturbances: 3-Moderate Itch/Numb/Burn Auditory Disturbances: 0-None Visual Disturbances: 0-None Headache: 0-None Present (drank 1 hour prior to coming in.) CIWA-Ar Total Score: 17
--- NOTE | 2019-05-12 15:10 | HP ---
CIWA Score Nausea/Vomitin-No Nausea/No Vomiting Muscle Tremors: 1-None Visible, but [place] Anxiety: 4-Mod. Anxious/Guarded Agitation: 4-Moderately Restless Paroxysmal Sweats: No Perspiration Orientation: 0-Oriented Tacttile Disturbances: 3-Moderate Itch/Numb/Burn Auditory Disturbances: 0-None Visual Disturbances: 0-None Headache: 0-None Present (drank 1 hour prior to coming in.) CIWA-Ar Total Score: 12 - Admission Criteria OASAS Guidelines: Admission for Medically Managed Detox: Requires at least one of the followin. CIWA greater than 12 2. Seizures within the past 24 hours 3. Delirium tremens within the past 24 hours 4. Hallucinations within the past 24 hours 5. Acute intervention needed for co occurring medical disorder 6. Acute intervention needed for co occurring psychiatric disorder 7. Severe withdrawal that cannot be handled at a lower level of care (continued vomiting, continued diarrhea, abnormal vital signs) requiring intravenous medication and/or fluids 8. Admitting History and Physical - Admission History of Present Illness: This is a 58 year old male with PMH of Lupus and Bipolar disorder. He drinks 8 6-oz cans of beer per day, has been drinking for the past 3 years, had no alcohol for 15 years prior to that. His last drink was today at 12:30PM, had a 16oz can of jamari. He denies seizures or blackouts. He uses crack cocaine, around $100 per day, last used noon today, finished $100 overnight. Smokes and snorts, does not inject. He smokes 1ppd, has been smoking since the age of 17. States he was diagnosed with Bipolar in the past, was on seroquel and risperidone, which he has not taken for the past 2 months. ROS: - headache PMH: - Lupus and Bipolar disorder. PSH: - Appendectomy at 13yo Social: - Lives by himself, currently unemployed, previously worked as a counsellor - In contact with mother, son, step daughter Physical Exam: - 12 - AOx3 - Lungs: Clear B/L - CVS: RRR - Abdomen: Soft, ND, NT - LE: No edema, no calf tenderness - TRANSLATOR/INTERPRETER: Motor 4/5 B/L, sensations intact - Skin: Plan: - 12, will admit for alcohol detox and start on Librium protocol - Hx of psych issues, Psych consulted - Pruritis and rash on arms and legs, likely 2/2 xerosis, will order Aveeno soap - Past Medical History Psych: Yes: Addictions, Anxiety, Bipolar, Other (schizoaffective) - Past Surgical History Past Surgical History: Yes: None - Smoking History Smoking history: Current every day smoker Have you smoked in the past 12 months: Yes Aproximately how many cigarettes per day: 20 - Alcohol/Substance Use Hx Alcohol Use: Yes Admission [facility] - HPI Allergies/Adverse Reactions: Allergies Allergy/AdvReac Type Severity Reaction Status Date / Time No Known Drug Allergies Allergy Verified 05/12/19 14:45 shellfish derived AdvReac Severe dizziness Verified 05/12/19 14:45 Patient History - Patient Medical History Hx Anemia: No Hx Asthma: No Hx Chronic Obstructive Pulmonary Disease (COPD): No Hx Cancer: No Hx Cardiac Disorders: No Hx Congestive Heart Failure: No Hx Hypertension: No Hx Hypercholesterolemia: No Hx Pacemaker: No HX Cerebrovascular Accident: No Hx Seizures: No Hx Dementia: No Hx Diabetes: No Hx Gastrointestinal Disorders: No Hx Liver Disease: No Hx Genitourinary Disorders: No Hx Sexually Transmitted Disorders: No Hx Renal Disease (ESRD): No Hx Thyroid Disease: No Hx Human Immunodeficiency Virus (HIV): No Hx Hepatitis C: No Hx Depression: Yes Hx Suicide Attempt: No Hx Bipolar Disorder: Yes Hx Schizophrenia: No - Patient Surgical History Past Surgical History: Yes Hx Neurologic Surgery: No Hx Cataract Extraction: No Hx Cardiac Surgery: No Hx Lung Surgery: No Hx Breast Surgery: No Hx Breast Biopsy: No Hx Abdominal Surgery: No Hx Appendectomy: Yes (AT 13 YRS OLD) Hx Cholecystectomy: No Hx Genitourinary Surgery: No Hx Section: No Hx Orthopedic Surgery: No Anesthesia Reaction: No - PPD History Date: 08/06/17 Results: 0 mm - Smoking Cessation Smoking history: Current every day smoker Have you smoked in the past 12 months: Yes Aproximately how many cigarettes per day: 20 Cigars Per Day: 0 Hx Chewing Tobacco Use: No Initiated information on smoking cessation: Yes 'Breaking Loose' booklet given: 05/12/19 Admission Physical Exam S - Diagnostic (1) Alcohol dependence with uncomplicated withdrawal Current Visit: No Status: Acute Breathalyzer - Breathalyzer Breathalyzer: 0 Urine Drug Screen - Test Device Lot number: [id number] Expiration date: 10/13/20 - Control Is test valid?: Yes - Results Drug screen NEGATIVE: No Urine drug screen results: BREONNA-Cocaine Inpatient Rehab Admission - Rehab Decision to Admit Inpatient rehab admission?: No
[2019-05-12] MEDS ORDERED: METHOCARBAMOL 500 MG TABLET PO PRN (15:24)
[2019-05-12] MEDS ORDERED: MAGNESIUM HYDROX 2400MG/30ML ORAL SUSPENSION 30 ML CUP PO PRN (15:24)
[2019-05-12] MEDS ORDERED: MAGNESIUM CITRATE 300 ML BOTTLE PO PRN (15:24)
[2019-05-12] MEDS ORDERED: hydrOXYzine PAMOATE 25 MG CAPSULE (FP) PO PRN (15:24)
[2019-05-12] MEDS ORDERED: MENTHOL/PHENOL 1 EACH UD MM PRN (15:24)
[2019-05-12] MEDS ORDERED: IBUPROFEN 400 MG TABLET (FP) PO PRN (15:24)
[2019-05-12] MEDS ORDERED: ACETAMINOPHEN 325 MG TABLET (FP) PO PRN ×2 (15:24)
[2019-05-12] MEDS ORDERED: chlordiazePOXIDE HCL 25 MG CAPSULE PO PRN (15:24)
[2019-05-12] MEDS ORDERED: BISMUTH SUBSALICYLATE 262 MG/15 ML BTL PO PRN (15:24)
[2019-05-12] MEDS ORDERED: MAG HYDROX/AL HYDROX/SIMETH 30 ML UNIT-DOSE CUP PO PRN (15:24)
[2019-05-12] MEDS ORDERED: COLLOIDAL OATMEAL 1 BAR EACH TP PRN (15:28)
[2019-05-12 16:37] VITALS: BMI 23.5
[2019-05-12] MEDS: chlordiazePOXIDE HCL 25 MG CAPSULE PO SCH ×2 (17:14→22:41)
[2019-05-12] MEDS: NICOTINE POLACRILEX 2 MG GUM BUC PRN (17:16)
[2019-05-12] MEDS: THIAMINE HCL 100 MG TABLET (FP) PO SCH (22:41)
[2019-05-12] MEDS: OLANZapine 10 MG TABLET PO SCH (22:41)
[2019-05-12] MEDS: DIVALPROEX SODIUM 500 MG TABLET E.C. PO SCH (22:41)
[2019-05-13] MEDS: chlordiazePOXIDE HCL 25 MG CAPSULE PO SCH ×4 (07:41→22:03)
--- NOTE | 2019-05-13 10:11 | PN ---
Teaching Attending Note Name of Resident: Canelo Laird ATTENDING PHYSICIAN STATEMENT I saw and evaluated the patient. I reviewed the resident's note and discussed the case with the resident. I agree with the resident's findings and plan as documented. SUBJECTIVE: OBJECTIVE: ASSESSMENT AND PLAN:
[2019-05-13] MEDS: PRENATAL VITAMINS W/ FOLIC ACID TABLET (FP) PO SCH (10:15)
[2019-05-13] MEDS: NICOTINE POLACRILEX 2 MG GUM BUC PRN ×2 (10:18→22:05)
[2019-05-13 11:19] LABS: HEMOGLOBIN 15.5 GM/dL (11.7-16.9); MCH 32.2 pg (25.7-33.7); MCHC 33.7 g/dl (32.0-35.9); MEAN CELL VOLUME 95.4 fl (80-96); MEAN PLT VOLUME 7.4 fl (7.5-11.1); PLATELET COUNT 283 K/MM3 (134-434); RBC 4.82 M/mm3 (4.00-5.60); RDW 14.9 % (11.9-15.9); WHITE BLOOD COUNT 6.3 K/mm3 (4.0-10.0)
--- NOTE | 2019-05-13 11:20 | PN ---
S CIWA - CIWA Score Nausea/Vomitin-No Nausea/No Vomiting Muscle Tremors: None Anxiety: 2 Agitation: 0-Normal Activity Paroxysmal Sweats: 2 Orientation: 0-Oriented Tacttile Disturbances: 0-None Auditory Disturbances: 0-None Visual Disturbances: 0-None Headache: 0-None Present CIWA-Ar Total Score: 4 BHS Progress Note (SOAP) Subjective: Complains of feeing sweaty and anxious Objective: 05/13/19 11:18 Vital Signs Temperature 99.2 F 05/13/19 08:56 Pulse Rate 85 05/13/19 08:56 Respiratory Rate 18 05/13/19 08:56 Blood Pressure 119/67 05/13/19 08:56 O2 Sat by Pulse Oximetry (%) PE Gnl: WDWN, in no distress MS: awake, alert, nl language Motor; moves limbs well Coord: nl Assessment: 05/13/19 11:19 1. Alcohol use disorder 2. Bipolar disorder Plan: 1. Continue Librium withdrawal protocol 2. Psychiatric medications ordered yesterday, will continue, pending Psychiatry consult 3. routine labs pending
[2019-05-13 11:39] LABS: ALBUMIN 3.2 g/dl (3.4-5.0); BLOOD UREA NITROGEN 11.6 mg/dL (7-18); POTASSIUM 3.8 mmol/L (3.5-5.1); TOT PROT 5.8 g/dl (6.4-8.2)
[2019-05-13 12:05] LABS: BILIRUBIN,TOTAL 0.7 mg/dL (0.2-1)
--- NOTE | 2019-05-13 12:38 | CONSULT ---
[facility] Psychiatric Consult - Data Date of interview: 05/13/19 Admission source: [facility] Identifying data: Revisit to [facility] and admission to [address] [place] [address] for this 58 y/o male self-referred for detoxification treatment. HUNG issues : alcohol, cocaine, nicotine. 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 Substance Abuse History: Discussed with patient. Details in current [facility] report as follows : Smoking history: Current every day smoker. Have you smoked in the past 12 months: Yes. Aproximately how many cigarettes per day: 20. Cigars Per Day: 0. Hx Chewing Tobacco Use: No. Initiated information on smoking cessation : Yes. 'Breaking Loose' booklet given: 05/12/19 Medical History: Medical profile is remarkable for heart murmur and history of appendectomy + treatment for chlamydia and syphilis. Psychiatric History: Long-standing history of psychiatric illness : onset at age 20 (psychiatric admission to [facility] for a suicide attempt via overdose with medications). Patient was diagnosed at the time with Bipolar Disorder. Presents with a history of multiple psychiatric admissions (as recently as 2018 to [facility]). [facility] Jose [facility] ([facility], for medication management (olanzapine + valproate : doses not recalled). History of multiple suicide attempts via overdoses. Physical/Sexual Abuse/Trauma History: Patient denies. Additional Comment: Urine drug screen results: BREONNA-Cocaine. Noted. Mental Status Exam - Mental Status Exam Alert and Oriented to: Time, Place, Person Cognitive Function: Good Patient Appearance: Unkempt, Disheveled Mood: Angry, Hostile, Irritable Affect: Labile Patient Behavior: Fatigued, Cooperative (cooperative) Speech Pattern: Clear Voice Loudness: Normal Thought Process: Intact, Goal Oriented Thought Disorder: Not Present Hallucinations: Denies Suicidal Ideation: Denies Homicidal Ideation: Denies Insight/Judgement: Poor Sleep: Well Appetite: Good Gait/Station: Normal Psychiatric Findings - Problem List ([place] 1, 2,3) (1) Alcohol dependence with uncomplicated withdrawal Current Visit: Yes Status: Acute (2) Cocaine dependence Current Visit: Yes Status: Chronic Qualifiers: (3) Nicotine dependence Current Visit: Yes Status: Chronic Qualifiers: Nicotine product type: cigarettes Substance use status: in withdrawal Qualified Code(s): F17.213 - Nicotine dependence, cigarettes, with withdrawal (4) Substance induced mood disorder Current Visit: Yes Status: Chronic (5) History of bipolar disorder Current Visit: Yes Status: Chronic Comment: On medications (olanzapine + valproate). (6) Personality disorder Current Visit: Yes Status: Chronic Comment: Unspecified. (7) Non-compliance Current Visit: Yes Status: Acute - Initial Treatment Plan Initial Treatment Plan: Psychoeducation. Sleep hygiene. Detoxification. AA meetings. Medication resumed as : depakote 500 mg po bid + olanzapine 10 mg po hs. Side effects/benefits of both drugs are discussed with patient. Mr Branch is in agreement with this plan of care. Gave consent (verbal) to MD. Youssef.
[2019-05-13] MEDS: THIAMINE HCL 100 MG TABLET (FP) PO SCH (22:03)
[2019-05-13] MEDS: OLANZapine 10 MG TABLET PO SCH (22:03)
[2019-05-13] MEDS: DIVALPROEX SODIUM 500 MG TABLET E.C. PO SCH (22:03)
[2019-05-13] MEDS: MELATONIN 5 MG TABLETS PO PRN (22:04)
[2019-05-14] MEDS: chlordiazePOXIDE HCL 25 MG CAPSULE PO SCH ×4 (08:15→22:44)
--- NOTE | 2019-05-14 11:12 | PN ---
[facility] CIWA - CIWA Score Nausea/Vomitin-No Nausea/No Vomiting Muscle Tremors: None Anxiety: 3 Agitation: 0-Normal Activity Paroxysmal Sweats: 3 Orientation: 0-Oriented Tacttile Disturbances: 0-None Auditory Disturbances: 0-None Visual Disturbances: 0-None Headache: 1-Very Mild CIWA-Ar Total Score: 7 S Progress Note (SOAP) Subjective: c/o sweats, headache, and anxiety. Objective: 05/14/19 11:11 Vital Signs 05/14/19 05/14/19 05/14/19 03:30 07:03 09:13 Temperature 98.4 F 98.3 F Pulse Rate 69 66 Respiratory 18 16 18 Rate Blood Pressure 90/50 L 101/66 Laboratory Last Values WBC 6.3 K/mm3 (4.0-10.0) 05/13/19 08:00 RBC 4.82 M/mm3 (4.00-5.60) 05/13/19 08:00 Hgb 15.5 GM/dL (11.7-16.9) 05/13/19 08:00 Hct 46.0 % (35.4-49) 05/13/19 08:00 MCV 95.4 fl (80-96) 05/13/19 08:00 MCH 32.2 pg (25.7-33.7) 05/13/19 08:00 MCHC 33.7 g/dl (32.0-35.9) 05/13/19 08:00 RDW 14.9 % (11.9-15.9) 05/13/19 08:00 Plt Count 283 K/MM3 (134-434) 05/13/19 08:00 MPV 7.4 fl (7.5-11.1) L 05/13/19 08:00 Sodium 143 mmol/L (136-145) 05/13/19 08:00 Potassium 3.8 mmol/L (3.5-5.1) 05/13/19 08:00 Chloride 110 mmol/L (98-107) H 05/13/19 08:00 Carbon Dioxide 28 mmol/L (21-32) 05/13/19 08:00 Anion Gap 5 MMOL/L (8-16) L 05/13/19 08:00 BUN 11.6 mg/dL (7-18) 05/13/19 08:00 Creatinine 1.0 mg/dL (0.55-1.3) 05/13/19 08:00 Est GFR (CKD-EPI)AfAm 97.08 05/13/19 08:00 Est GFR (CKD-EPI)NonAf 83.76 05/13/19 08:00 Random Glucose 103 mg/dL (74-106) 05/13/19 08:00 Calcium 8.0 mg/dL (8.5-10.1) L 05/13/19 08:00 Total Bilirubin 0.7 mg/dL (0.2-1) 05/13/19 08:00 AST 15 U/L (15-37) 05/13/19 08:00 ALT 23 U/L (13-61) 05/13/19 08:00 Alkaline Phosphatase 92 U/L (45-117) 05/13/19 08:00 Total Protein 5.8 g/dl (6.4-8.2) L 05/13/19 08:00 Albumin 3.2 g/dl (3.4-5.0) L 05/13/19 08:00 RPR Titer Nonreactive (NONREACTIVE) 05/13/19 08:00 Labs noted. Assessment: 05/14/19 11:12 AOX3, in no respiratory distress. Full ROM, ambulating in the unit. Withdrawal symptoms. Plan: continue detox.
[2019-05-14] MEDS: PRENATAL VITAMINS W/ FOLIC ACID TABLET (FP) PO SCH (11:45)
[2019-05-14] MEDS: OLANZapine 10 MG TABLET PO SCH (22:44)
[2019-05-14] MEDS: DIVALPROEX SODIUM 500 MG TABLET E.C. PO SCH (22:44)
[2019-05-14] MEDS: THIAMINE HCL 100 MG TABLET (FP) PO SCH (22:44)
[2019-05-15] MEDS ORDERED: chlordiazePOXIDE HCL 10 MG CAPSULE PO PRN
[2019-05-15] MEDS: chlordiazePOXIDE HCL 10 MG CAPSULE PO SCH ×4 (06:33→22:32)
--- NOTE | 2019-05-15 09:36 | PN ---
[facility] CIWA - CIWA Score Nausea/Vomitin-No Nausea/No Vomiting Muscle Tremors: 2 Anxiety: 1-Mildly Anxious Agitation: 0-Normal Activity Paroxysmal Sweats: 2 Orientation: 0-Oriented Tacttile Disturbances: 0-None Auditory Disturbances: 0-None Visual Disturbances: 1-Very Mild Sensitivity Headache: 0-None Present CIWA-Ar Total Score: 6 S Progress Note (SOAP) Subjective: 58 years old male admitted on 05/12/19 for alcohol withdrawal sx management treating with librium detox regiment ate small amount of breakfast resting in bed speech clearly encourage to attend behavior and psychosocial therapies groups and meetings Objective: 05/15/19 09:39 Vital Signs Temperature 97.1 F L 05/15/19 05:50 Pulse Rate 66 05/15/19 05:50 Respiratory Rate 18 05/15/19 05:50 Blood Pressure 103/65 05/15/19 05:50 O2 Sat by Pulse Oximetry (%) Laboratory Last Values WBC 6.3 K/mm3 (4.0-10.0) 05/13/19 08:00 RBC 4.82 M/mm3 (4.00-5.60) 05/13/19 08:00 Hgb 15.5 GM/dL (11.7-16.9) 05/13/19 08:00 Hct 46.0 % (35.4-49) 05/13/19 08:00 MCV 95.4 fl (80-96) 05/13/19 08:00 MCH 32.2 pg (25.7-33.7) 05/13/19 08:00 MCHC 33.7 g/dl (32.0-35.9) 05/13/19 08:00 RDW 14.9 % (11.9-15.9) 05/13/19 08:00 Plt Count 283 K/MM3 (134-434) 05/13/19 08:00 MPV 7.4 fl (7.5-11.1) L 05/13/19 08:00 Sodium 143 mmol/L (136-145) 05/13/19 08:00 Potassium 3.8 mmol/L (3.5-5.1) 05/13/19 08:00 Chloride 110 mmol/L (98-107) H 05/13/19 08:00 Carbon Dioxide 28 mmol/L (21-32) 05/13/19 08:00 Anion Gap 5 MMOL/L (8-16) L 05/13/19 08:00 BUN 11.6 mg/dL (7-18) 05/13/19 08:00 Creatinine 1.0 mg/dL (0.55-1.3) 05/13/19 08:00 Est GFR (CKD-EPI)AfAm 97.08 05/13/19 08:00 Est GFR (CKD-EPI)NonAf 83.76 05/13/19 08:00 Random Glucose 103 mg/dL (74-106) 05/13/19 08:00 Calcium 8.0 mg/dL (8.5-10.1) L 05/13/19 08:00 Total Bilirubin 0.7 mg/dL (0.2-1) 05/13/19 08:00 AST 15 U/L (15-37) 05/13/19 08:00 ALT 23 U/L (13-61) 05/13/19 08:00 Alkaline Phosphatase 92 U/L (45-117) 05/13/19 08:00 Total Protein 5.8 g/dl (6.4-8.2) L 05/13/19 08:00 Albumin 3.2 g/dl (3.4-5.0) L 05/13/19 08:00 RPR Titer Nonreactive (NONREACTIVE) 05/13/19 08:00 lab noted Assessment: 05/15/19 09:39 alcohol withdrawal Plan: librium regiment
[2019-05-15] MEDS: PRENATAL VITAMINS W/ FOLIC ACID TABLET (FP) PO SCH (10:36)
[2019-05-15] MEDS: NICOTINE POLACRILEX 2 MG GUM BUC PRN ×2 (10:37→17:05)
[2019-05-15] MEDS: MELATONIN 5 MG TABLETS PO PRN (22:30)
[2019-05-15] MEDS: DIVALPROEX SODIUM 500 MG TABLET E.C. PO SCH (22:30)
[2019-05-15] MEDS: OLANZapine 10 MG TABLET PO SCH (22:30)
[2019-05-15] MEDS: THIAMINE HCL 100 MG TABLET (FP) PO SCH (22:32)
[2019-05-16] MEDS: chlordiazePOXIDE HCL 10 MG CAPSULE PO SCH ×2 (05:18→19:39)
[2019-05-16] MEDS: PRENATAL VITAMINS W/ FOLIC ACID TABLET (FP) PO SCH (10:04)
--- NOTE | 2019-05-16 10:11 | PN ---
[facility] CIWA - CIWA Score Nausea/Vomitin-No Nausea/No Vomiting Muscle Tremors: 1-None Visible, but [place] Anxiety: 1-Mildly Anxious Agitation: 0-Normal Activity Paroxysmal Sweats: No Perspiration Orientation: 0-Oriented Tacttile Disturbances: 0-None Auditory Disturbances: 0-None Visual Disturbances: 1-Very Mild Sensitivity Headache: 0-None Present CIWA-Ar Total Score: 3 BHS Progress Note (SOAP) Subjective: 58 years old male admitted on 05/12/19 for alcohol withdrawal sx management treating with librum detox regiment request ensure as nutrition supplement ensure 90ml po bid Objective: 05/16/19 10:09 Vital Signs Temperature 97.5 F L 05/16/19 08:40 Pulse Rate 88 05/16/19 08:40 Respiratory Rate 18 05/16/19 08:40 Blood Pressure 107/73 05/16/19 08:40 O2 Sat by Pulse Oximetry (%) Laboratory Last Values WBC 6.3 K/mm3 (4.0-10.0) 05/13/19 08:00 RBC 4.82 M/mm3 (4.00-5.60) 05/13/19 08:00 Hgb 15.5 GM/dL (11.7-16.9) 05/13/19 08:00 Hct 46.0 % (35.4-49) 05/13/19 08:00 MCV 95.4 fl (80-96) 05/13/19 08:00 MCH 32.2 pg (25.7-33.7) 05/13/19 08:00 MCHC 33.7 g/dl (32.0-35.9) 05/13/19 08:00 RDW 14.9 % (11.9-15.9) 05/13/19 08:00 Plt Count 283 K/MM3 (134-434) 05/13/19 08:00 MPV 7.4 fl (7.5-11.1) L 05/13/19 08:00 Sodium 143 mmol/L (136-145) 05/13/19 08:00 Potassium 3.8 mmol/L (3.5-5.1) 05/13/19 08:00 Chloride 110 mmol/L (98-107) H 05/13/19 08:00 Carbon Dioxide 28 mmol/L (21-32) 05/13/19 08:00 Anion Gap 5 MMOL/L (8-16) L 05/13/19 08:00 BUN 11.6 mg/dL (7-18) 05/13/19 08:00 Creatinine 1.0 mg/dL (0.55-1.3) 05/13/19 08:00 Est GFR (CKD-EPI)AfAm 97.08 05/13/19 08:00 Est GFR (CKD-EPI)NonAf 83.76 05/13/19 08:00 Random Glucose 103 mg/dL (74-106) 05/13/19 08:00 Calcium 8.0 mg/dL (8.5-10.1) L 05/13/19 08:00 Total Bilirubin 0.7 mg/dL (0.2-1) 05/13/19 08:00 AST 15 U/L (15-37) 05/13/19 08:00 ALT 23 U/L (13-61) 05/13/19 08:00 Alkaline Phosphatase 92 U/L (45-117) 05/13/19 08:00 Total Protein 5.8 g/dl (6.4-8.2) L 05/13/19 08:00 Albumin 3.2 g/dl (3.4-5.0) L 05/13/19 08:00 RPR Titer Nonreactive (NONREACTIVE) 05/13/19 08:00 lab noted encourage calcium rich food Assessment: 05/16/19 10:10 alcohol withdrawal Plan: librium regiment
[2019-05-16] MEDS: NICOTINE POLACRILEX 2 MG GUM BUC PRN ×2 (12:17→15:45)
[2019-05-16] MEDS: DIVALPROEX SODIUM 500 MG TABLET E.C. PO SCH (22:31)
[2019-05-16] MEDS: THIAMINE HCL 100 MG TABLET (FP) PO SCH (22:32)
[2019-05-16] MEDS: MELATONIN 5 MG TABLETS PO PRN (22:32)
[2019-05-16] MEDS: OLANZapine 10 MG TABLET PO SCH (22:32)
[2019-05-17] MEDS ORDERED: chlordiazePOXIDE HCL 10 MG CAPSULE PO ONE (05:00)
[2019-05-17] MEDS: PRENATAL VITAMINS W/ FOLIC ACID TABLET (FP) PO SCH (10:35)
[2019-05-17 13:11] VITALS: BP 124/83; PULSE 80; TEMP 98
--- NOTE | 2019-05-17 14:15 | DS ---
[facility] Detox Discharge Summary Admission Date: 05/12/19 Discharge Date: 05/17/19 - History Present History: Alcohol Dependence Additional Comments: 58 years old male admitted on 05/12/19 for alcohol withdrawal sx management treated with librium detox regiment Mr Branch had completed librium regiment and was tolerated well seen by psychiatrst resume depakote and olanzapin alert oriented x 3 respiratory clear lungs bilaterally on auscultation abdomen soft no rebound tenderness skin warm and dry Pertinent Past History: time for discharge 43 minutes - Physical Exam Results Vital Signs: Vital Signs Temperature 98.0 F 05/17/19 12:32 Pulse Rate 80 05/17/19 12:32 Respiratory Rate 05/17/19 12:32 Blood Pressure 124/83 05/17/19 12:32 O2 Sat by Pulse Oximetry (%) Pertinent Admission Physical Exam Findings: alcohol withdrawal Laboratory 05/13/19 05/13/19 05/13/19 08:00 08:00 08:00 WBC 6.3 K/mm3 K/mm3 (4.0-10.0) RBC 4.82 M/mm3 M/mm3 (4.00-5.60) Hgb 15.5 GM/dL GM/dL (11.7-16.9) Hct 46.0 % % (35.4-49) MCV 95.4 fl fl (80-96) MCH 32.2 pg pg (25.7-33.7) MCHC 33.7 g/dl g/dl (32.0-35.9) RDW 14.9 % % (11.9-15.9) Plt Count 283 K/MM3 K/MM3 (134-434) MPV 7.4 fl L fl (7.5-11.1) Sodium 143 mmol/L mmol/L (136-145) Potassium 3.8 mmol/L mmol/L (3.5-5.1) Chloride 110 mmol/L H mmol/L (98-107) Carbon Dioxide 28 mmol/L mmol/L (21-32) Anion Gap 5 MMOL/L L MMOL/L (8-16) BUN 11.6 mg/dL mg/dL (7-18) Creatinine 1.0 mg/dL mg/dL (0.55-1.3) Est GFR (CKD-EPI)AfAm 97.08 Est GFR (CKD-EPI)NonAf 83.76 Random Glucose 103 mg/dL mg/dL (74-106) Calcium 8.0 mg/dL L mg/dL (8.5-10.1) Total Bilirubin 0.7 mg/dL mg/dL (0.2-1) AST 15 U/L U/L (15-37) ALT 23 U/L U/L (13-61) Alkaline Phosphatase 92 U/L U/L (45-117) Total Protein 5.8 g/dl L g/dl (6.4-8.2) Albumin 3.2 g/dl L g/dl (3.4-5.0) RPR Titer Nonreactive (NONREACTIVE) lab noted - Treatment Hospital Course: Detox Protocol Followed, Detoxed Safely, Responded well, Discharged Condition Good, Rehab Referral Accepted Patient has Accepted a Rehab Referral to: [facility] - Medication Discharge Medications: Ambulatory Orders Divalproex [Depakote -] 500 mg PO HS #30 tablet.ec 02/03/18 Olanzapine [ZyPREXA -] 10 mg PO HS #30 tablet 02/23/18 - Diagnosis (1) Bipolar II disorder Current Visit: Yes Status: Suspected (2) Alcohol dependence with uncomplicated withdrawal Current Visit: Yes Status: Acute (3) Nicotine dependence Current Visit: Yes Status: Acute Qualifiers: Nicotine product type: cigarettes Substance use status: in withdrawal Qualified Code(s): F17.213 - Nicotine dependence, cigarettes, with withdrawal (4) Substance induced mood disorder Current Visit: Yes Status: Suspected (5) Weight loss Current Visit: Yes Status: Chronic (6) Substance induced mood disorder Current Visit: Yes Status: Suspected - AMA Did Patient Leave Against Medical Advice: No CIWA Score - CIWA Score Nausea/Vomitin-No Nausea/No Vomiting Muscle Tremors: 1-None Visible, but [place] Anxiety: 1-Mildly Anxious Agitation: 0-Normal Activity Paroxysmal Sweats: No Perspiration Orientation: 0-Oriented Tacttile Disturbances: 0-None Auditory Disturbances: 0-None Visual Disturbances: 0-None Headache: 0-None Present CIWA-Ar Total Score: 2
== END 2019-05-17 13:05 | disposition home or self-care (01) | DRG 774 ==
LOC: YASAS 13:00 → Y3N 15:45
PROVIDERS: ADMIT Allergy & Immunology; ATTEND Allergy & Immunology
PROC: HZ2ZZZZ Detoxification Services for Substance Abuse Treatment (ICD-10-PCS; principal; 2019-05-12)
DX: F10.230 Alcohol dependence with withdrawal, uncomplicated (principal); F14.20 Cocaine dependence, uncomplicated; F17.210 Nicotine dependence, cigarettes, uncomplicated; F31.81 Bipolar II disorder; F25.9 Schizoaffective disorder, unspecified; F19.24 Other psychoactive substance dependence with psychoactive substance-induced mood disorder; F31.9 Bipolar disorder, unspecified; F60.9 Personality disorder, unspecified; M32.9 Systemic lupus erythematosus, unspecified; R63.4 Abnormal weight loss; Z68.23 Body mass index [BMI] 23.0-23.9, adult; Z91.19 Patient's noncompliance with other medical treatment and regimen; Z56.0 Unemployment, unspecified; Z91.013 Allergy to seafood; Z91.5 Personal history of self-harm
CPT/HCPCS: 36415; 80053; 85027; 86593

== ENCOUNTER 2021-04-05 15:42 | Inpatient (IN) | payer OTHER ==
[2021-04-05 17:15] VITALS: BMI 22.5
[2021-04-05] MEDS ORDERED: MENTHOL/PHENOL 1 EACH UD MM PRN (22:05)
[2021-04-05] MEDS ORDERED: MAG HYDROX/AL HYDROX/SIMETH 30 ML UNIT-DOSE CUP PO PRN (22:05)
[2021-04-05] MEDS ORDERED: MAGNESIUM CITRATE 300 ML BOTTLE PO PRN (22:05)
[2021-04-05] MEDS ORDERED: MAGNESIUM HYDROX 2400MG/30ML ORAL SUSPENSION 30 ML CUP PO PRN (22:05)
[2021-04-05] MEDS ORDERED: ONDANSETRON *ODT* 4 MG TABLET SL PRN (22:05)
[2021-04-05] MEDS ORDERED: ACETAMINOPHEN 325 MG TABLET (FP) PO PRN ×2 (22:05)
[2021-04-05] MEDS ORDERED: BISMUTH SUBSALICYLATE 524 MG/30 ML PO PRN (22:05)
[2021-04-05] MEDS ORDERED: IBUPROFEN 400 MG TABLET (FP) PO PRN (22:05)
[2021-04-05] MEDS: diazePAM 5 MG TABLET PO SCH (22:49)
[2021-04-05] MEDS: NICOTINE 10 MG CARTRIDGE (INHALER) IH PRN (22:49)
[2021-04-06] MEDS: diazePAM 5 MG TABLET PO SCH ×4 (05:34→22:28)
[2021-04-06] MEDS: NICOTINE 10 MG CARTRIDGE (INHALER) IH PRN ×5 (05:37→22:28)
[2021-04-06] MEDS: PRENATAL VITAMINS W/ FOLIC ACID TABLET (FP) PO SCH (10:22)
[2021-04-06] MEDS: METHOCARBAMOL 500 MG TABLET PO PRN (10:23)
[2021-04-06] MEDS: hydrOXYzine PAMOATE 25 MG CAPSULE (FP) PO PRN ×2 (10:23→22:28)
[2021-04-06 13:47] LABS: BLOOD UREA NITROGEN 18.2 mg/dL (7-18)
[2021-04-06 13:48] LABS: ALBUMIN 3.4 g/dl (3.4-5.0)
[2021-04-06 13:52] LABS: BILIRUBIN,TOTAL 0.6 mg/dL (0.2-1)
[2021-04-06 13:55] LABS: HEMATOCRIT 47.7 % (35.4-49); HEMOGLOBIN 15.7 GM/dL (11.7-16.9); MCH 31.4 pg (25.7-33.7); MCHC 32.8 g/dl (32.0-35.9); MEAN CELL VOLUME 95.6 fl (80-96); MEAN PLT VOLUME 7.6 fl (7.5-11.1); PLATELET COUNT 300 10^3/uL (134-434); RBC 4.99 M/mm3 (4.00-5.60); RDW 14.2 % (11.9-15.9); WHITE BLOOD COUNT 7.5 K/mm3 (4.0-10.0)
[2021-04-06] MEDS: THIAMINE HCL 100 MG TABLET (FP) PO SCH (22:28)
[2021-04-06] MEDS: MELATONIN 5 MG TABLETS PO SCH (22:28)
[2021-04-07] MEDS: diazePAM 5 MG TABLET PO SCH ×3 (05:42→22:17)
[2021-04-07] MEDS: NICOTINE 10 MG CARTRIDGE (INHALER) IH PRN ×3 (05:43→19:40)
[2021-04-07] MEDS: METHOCARBAMOL 500 MG TABLET PO PRN (09:59)
[2021-04-07] MEDS: PRENATAL VITAMINS W/ FOLIC ACID TABLET (FP) PO SCH (09:59)
[2021-04-07] MEDS: hydrOXYzine PAMOATE 25 MG CAPSULE (FP) PO PRN (09:59)
[2021-04-07] MEDS: diazePAM 5 MG TABLET PO PRN (10:00)
[2021-04-07] MEDS: THIAMINE HCL 100 MG TABLET (FP) PO SCH (22:16)
[2021-04-07] MEDS: MELATONIN 5 MG TABLETS PO SCH (22:16)
[2021-04-07] MEDS: NICOTINE POLACRILEX 2 MG GUM BUC PRN (22:18)
[2021-04-08] MEDS: diazePAM 5 MG TABLET PO SCH ×2 (05:46→18:54)
[2021-04-08] MEDS: NICOTINE 10 MG CARTRIDGE (INHALER) IH PRN ×5 (05:47→22:17)
[2021-04-08] MEDS: diazePAM 5 MG TABLET PO PRN (10:17)
[2021-04-08] MEDS: PRENATAL VITAMINS W/ FOLIC ACID TABLET (FP) PO SCH (10:17)
[2021-04-08] MEDS: NICOTINE POLACRILEX 2 MG GUM BUC PRN ×2 (13:52→18:57)
[2021-04-08] MEDS: MELATONIN 5 MG TABLETS PO SCH (22:17)
[2021-04-08] MEDS: hydrOXYzine PAMOATE 25 MG CAPSULE (FP) PO PRN (22:17)
[2021-04-08] MEDS: THIAMINE HCL 100 MG TABLET (FP) PO SCH (22:17)
[2021-04-09] MEDS: NICOTINE 10 MG CARTRIDGE (INHALER) IH PRN ×2 (05:41→10:34)
[2021-04-09] MEDS ORDERED: diazePAM 5 MG TABLET PO ONE (06:00)
[2021-04-09] MEDS: NICOTINE POLACRILEX 2 MG GUM BUC PRN ×2 (08:15→10:34)
[2021-04-09] MEDS: PRENATAL VITAMINS W/ FOLIC ACID TABLET (FP) PO SCH (10:38)
[2021-04-09 12:35] VITALS: BP 145/73; PULSE 107; TEMP 97.1
== END 2021-04-09 12:35 | disposition other institution (70) | DRG 774 ==
LOC: YASAS 15:42 → Y6N 21:12
PROVIDERS: ADMIT Allergy & Immunology; ATTEND Allergy & Immunology
PROC: HZ2ZZZZ Detoxification Services for Substance Abuse Treatment (ICD-10-PCS; principal; 2021-04-05)
DX: F10.230 Alcohol dependence with withdrawal, uncomplicated (principal); F14.20 Cocaine dependence, uncomplicated; F17.213 Nicotine dependence, cigarettes, with withdrawal; F25.9 Schizoaffective disorder, unspecified; F32.9 Major depressive disorder, single episode, unspecified; F19.24 Other psychoactive substance dependence with psychoactive substance-induced mood disorder; G47.00 Insomnia, unspecified; R63.8 Other symptoms and signs concerning food and fluid intake; R63.4 Abnormal weight loss; Z68.22 Body mass index [BMI] 22.0-22.9, adult; Z86.19 Personal history of other infectious and parasitic diseases; Z91.013 Allergy to seafood; Z91.19 Patient's noncompliance with other medical treatment and regimen
CPT/HCPCS: 36415; 80053; 80164; 85027; 86593; 86780; C9803; U0003; U0005

== ENCOUNTER 2021-12-20 13:27 | Inpatient (IN) | payer OTHER ==
[2021-12-20 15:05] VITALS: BMI 21.9
[2021-12-20] MEDS ORDERED: MAGNESIUM CITRATE 300 ML BOTTLE PO PRN (18:15)
[2021-12-20] MEDS ORDERED: DICYCLOMINE HCL 10 MG CAPSULE PO PRN (18:15)
[2021-12-20] MEDS ORDERED: ACETAMINOPHEN 325 MG TABLET (FP) PO PRN ×2 (18:15)
[2021-12-20] MEDS ORDERED: MAGNESIUM HYDROX 2400MG/30ML ORAL SUSPENSION 30 ML CUP PO PRN (18:15)
[2021-12-20] MEDS ORDERED: chlordiazePOXIDE HCL 25 MG CAPSULE PO PRN (18:15)
[2021-12-20] MEDS ORDERED: ONDANSETRON *ODT* 4 MG TABLET SL PRN (18:15)
[2021-12-20] MEDS ORDERED: LOPERAMIDE HCL 2 MG CAPSULE PO PRN (18:15)
[2021-12-20] MEDS ORDERED: IBUPROFEN 600 MG TABLET (FP) PO PRN (18:15)
[2021-12-20] MEDS ORDERED: BISMUTH SUBSALICYLATE 524 MG/30 ML PO PRN (18:15)
[2021-12-20] MEDS ORDERED: MAG HYDROX/AL HYDROX/SIMETH 30 ML UNIT-DOSE CUP PO PRN (18:15)
[2021-12-20] MEDS ORDERED: IBUPROFEN 400 MG TABLET (FP) PO PRN (18:15)
[2021-12-20] MEDS: NICOTINE 10 MG CARTRIDGE (INHALER) IH PRN (19:31)
[2021-12-20] MEDS: MELATONIN 5 MG TABLETS PO SCH (22:49)
[2021-12-20] MEDS: hydrOXYzine PAMOATE 25 MG CAPSULE (FP) PO SCH (22:49)
[2021-12-20] MEDS: THIAMINE HCL 100 MG TABLET (FP) PO SCH (22:49)
[2021-12-20] MEDS: chlordiazePOXIDE HCL 25 MG CAPSULE PO SCH (22:50)
[2021-12-21] MEDS: chlordiazePOXIDE HCL 25 MG CAPSULE PO SCH ×4 (06:19→22:52)
[2021-12-21] MEDS: hydrOXYzine PAMOATE 25 MG CAPSULE (FP) PO SCH ×5 (06:19→22:53)
[2021-12-21] MEDS: PRENATAL VITAMINS W/ FOLIC ACID TABLET (FP) PO SCH (11:04)
[2021-12-21] MEDS: NICOTINE 10 MG CARTRIDGE (INHALER) IH PRN ×2 (11:05→18:07)
[2021-12-21 12:06] LABS: HEMATOCRIT 42.2 % (35.4-49); HEMOGLOBIN 13.9 GM/dL (11.7-16.9); MCH 31.6 pg (25.7-33.7); MCHC 32.9 g/dl (32.0-35.9); MEAN CELL VOLUME 96.2 fl (80-96); MEAN PLT VOLUME 7.5 fl (7.5-11.1); PLATELET COUNT 267 10^3/uL (134-434); RBC 4.39 M/mm3 (4.00-5.60); RDW 14.7 % (11.9-15.9); WHITE BLOOD COUNT 6.1 K/mm3 (4.0-10.0)
[2021-12-21 12:15] LABS: CALCIUM 8.6 mg/dL (8.5-10.1)
[2021-12-21 12:17] LABS: ALBUMIN 2.8 g/dl (3.4-5.0); BLOOD UREA NITROGEN 16.2 mg/dL (7-18)
[2021-12-21 12:19] LABS: CREATININE 0.8 mg/dL (0.55-1.3)
[2021-12-21 12:20] LABS: BILIRUBIN,TOTAL 0.4 mg/dL (0.2-1)
[2021-12-21] MEDS: MELATONIN 5 MG TABLETS PO SCH (22:53)
[2021-12-21] MEDS: THIAMINE HCL 100 MG TABLET (FP) PO SCH (22:53)
[2021-12-22] MEDS: hydrOXYzine PAMOATE 25 MG CAPSULE (FP) PO SCH ×5 (07:15→22:35)
[2021-12-22] MEDS: chlordiazePOXIDE HCL 25 MG CAPSULE PO SCH ×4 (07:16→23:26)
[2021-12-22] MEDS: PRENATAL VITAMINS W/ FOLIC ACID TABLET (FP) PO SCH (10:49)
[2021-12-22] MEDS: NICOTINE 10 MG CARTRIDGE (INHALER) IH PRN ×2 (13:36→22:36)
[2021-12-22] MEDS: THIAMINE HCL 100 MG TABLET (FP) PO SCH (22:35)
[2021-12-22] MEDS: MELATONIN 5 MG TABLETS PO SCH (22:35)
[2021-12-23] MEDS ORDERED: chlordiazePOXIDE HCL 10 MG CAPSULE PO PRN
[2021-12-23] MEDS ORDERED: chlordiazePOXIDE 5 MG CAPSULE ONE ×2 (03:53→08:54)
[2021-12-23] MEDS: hydrOXYzine PAMOATE 25 MG CAPSULE (FP) PO SCH ×5 (06:06→22:53)
[2021-12-23] MEDS: NICOTINE 10 MG CARTRIDGE (INHALER) IH PRN ×4 (06:06→19:42)
[2021-12-23] MEDS: BENZOCAINE/MENTHOL (CHLORASEPTIC ) LOZENGE MM PRN ×3 (06:07→14:17)
[2021-12-23] MEDS: chlordiazePOXIDE HCL 10 MG CAPSULE PO SCH ×4 (06:09→22:53)
[2021-12-23] MEDS: PRENATAL VITAMINS W/ FOLIC ACID TABLET (FP) PO SCH (10:22)
[2021-12-23] MEDS: MELATONIN 5 MG TABLETS PO SCH (22:53)
[2021-12-23] MEDS: METHOCARBAMOL 500 MG TABLET PO PRN (22:53)
[2021-12-23] MEDS: THIAMINE HCL 100 MG TABLET (FP) PO SCH (22:53)
[2021-12-24] MEDS: hydrOXYzine PAMOATE 25 MG CAPSULE (FP) PO SCH ×5 (05:48→22:04)
[2021-12-24] MEDS: NICOTINE 10 MG CARTRIDGE (INHALER) IH PRN ×3 (05:48→20:32)
[2021-12-24] MEDS: chlordiazePOXIDE HCL 10 MG CAPSULE PO SCH ×2 (05:48→17:35)
[2021-12-24] MEDS: PRENATAL VITAMINS W/ FOLIC ACID TABLET (FP) PO SCH (10:35)
[2021-12-24] MEDS: THIAMINE HCL 100 MG TABLET (FP) PO SCH (22:04)
[2021-12-24] MEDS: MELATONIN 5 MG TABLETS PO SCH (22:04)
[2021-12-24] MEDS: METHOCARBAMOL 500 MG TABLET PO PRN (22:05)
[2021-12-25] MEDS ORDERED: chlordiazePOXIDE HCL 10 MG CAPSULE PO ONE (05:00)
[2021-12-25] MEDS: hydrOXYzine PAMOATE 25 MG CAPSULE (FP) PO SCH (06:45)
[2021-12-25] MEDS: NICOTINE 10 MG CARTRIDGE (INHALER) IH PRN (06:47)
[2021-12-25 08:06] VITALS: RESP 18
[2021-12-25 09:02] VITALS: BP 130/80; PULSE 79; TEMP 97.3
== END 2021-12-25 09:51 | disposition home or self-care (01) | DRG 773 ==
LOC: YASAS 13:27 → Y3N 19:03
PROVIDERS: ADMIT Allergy & Immunology; ATTEND Surgery
PROC: HZ2ZZZZ Detoxification Services for Substance Abuse Treatment (ICD-10-PCS; principal; 2021-12-20)
DX: F10.230 Alcohol dependence with withdrawal, uncomplicated (principal); F14.20 Cocaine dependence, uncomplicated; F11.10 Opioid abuse, uncomplicated; F13.10 Sedative, hypnotic or anxiolytic abuse, uncomplicated; F17.210 Nicotine dependence, cigarettes, uncomplicated; F31.9 Bipolar disorder, unspecified; F25.9 Schizoaffective disorder, unspecified; F19.24 Other psychoactive substance dependence with psychoactive substance-induced mood disorder; F41.9 Anxiety disorder, unspecified; E46 Unspecified protein-calorie malnutrition; Z68.21 Body mass index [BMI] 21.0-21.9, adult; R76.8 Other specified abnormal immunological findings in serum; Z86.19 Personal history of other infectious and parasitic diseases
CPT/HCPCS: 36415; 80053; 85027; 86593; 86780; 87811; C9803-CS; U0003; U0005